=== PATIENT | female | born 1935 | race Caucasian/White ===

== ENCOUNTER 2018-07-25 21:04 | Inpatient (IN) | payer MEDICARE ==
[2018-07-25] MEDS ORDERED: NALOXONE 0.4 MG/ML 1 ML VIAL IV PRN (22:06)
[2018-07-25] MEDS ORDERED: ONDANSETRON 4 MG/2 ML VIAL IVP PRN (22:06)
[2018-07-25] MEDS ORDERED: MAG HYDROX/AL HYDROX/SIMETH 30 ML CUP PO PRN (22:06)
[2018-07-25] MEDS ORDERED: TEMAZEPAM 15 MG CAP PO PRN (22:06)
--- NOTE | 2018-07-25 22:06 | ED ---
General Adult HPI - General Chief complaint: Weakness Stated complaint: lt side weakness Time Seen by Provider: 07/25/18 21:32 Source: patient Mode of arrival: ambulatory - History of Present Illness Initial comments: This patient is an 82-year-old woman who presents as a transfer from [facility]. The transferring physician stated that he felt she may have had a TIA. She had reportedly complained of having left leg weakness. They had arranged transfer to be seen by the neurology service here. When I interview the patient, she states that she was sent to the emergency department there by her visiting nurse who did not like something about her appearance tonight she felt that her color was off. When I interview the patient, she states that she feels well, denying any symptoms. When asked about left leg weakness she states that she does have some is a residual from stroke 2-3 weeks ago. She does not feel that she is having any weakness above this baseline. -: hour(s) Location: left, lower extremity Consistency: now resolved Improves with: none Worsens with: none Associated Symptoms: denies other symptoms Treatments Prior to Arrival: none - Related Data Home Medications Medication Instructions Recorded Confirmed Aspirin [Adult Low Dose Aspirin EC] 81 mg PO DAILY 07/25/18 07/25/18 Atorvastatin [Lipitor] 40 mg PO DAILY 07/25/18 07/25/18 Ibuprofen [Motrin] 800 mg PO DAILY PRN 07/25/18 07/25/18 Losartan Potassium 100 mg PO DAILY 07/25/18 07/25/18 Metoprolol Tartrate [Lopressor] 50 mg PO BID 07/25/18 07/25/18 Omeprazole 20 mg PO DAILY 07/25/18 07/25/18 amLODIPine BESYLATE 5 mg PO HS 07/25/18 07/25/18 diphenhydrAMINE [Benadryl] 50 mg PO HS 07/25/18 07/25/18 metFORMIN HCL [Glucophage] 500 mg PO TID 07/25/18 07/25/18 Allergies Allergy/AdvReac Type Severity Reaction Status Date / Time codeine Allergy Unknown Verified 07/25/18 22:18 Penicillins Allergy Rash/Hives Verified 07/25/18 22:18 Review of Systems ROS Statement: Those systems with pertinent positive or pertinent negative responses have been documented in the HPI. ROS Other: All systems not noted in ROS Statement are negative. Constitutional: Denies: fever, chills Respiratory: Denies: cough, dyspnea Cardiovascular: Denies: chest pain, palpitations, orthopnea, syncope Gastrointestinal: Denies: abdominal pain, vomiting, diarrhea Genitourinary: Denies: dysuria Musculoskeletal: Denies: back pain Skin: Denies: rash Neurological: Reports: as per HPI, weakness. Denies: headache, numbness Past Medical History Past Medical History: Diabetes Mellitus, Hypertension History of Any Multi-Drug Resistant Organisms: None Reported Past Surgical History: Appendectomy Additional Past Surgical History / Comment(s): right shoulder, left knee, right hip replacements. Past Psychological History: No Psychological Hx Reported Smoking Status: Former smoker Past Alcohol Use History: Occasional Past Drug Use History: None Reported General Exam General appearance: alert, in no apparent distress Head exam: Present: atraumatic, normocephalic Eye exam: Present: normal appearance ENT exam: Present: normal oropharynx Respiratory exam: Present: normal lung sounds bilaterally. Absent: respiratory distress, wheezes, rales, rhonchi, stridor Cardiovascular Exam: Present: regular rate, normal rhythm, normal heart sounds. Absent: systolic murmur, diastolic murmur, rubs, gallop GI/Abdominal exam: Present: soft. Absent: distended, tenderness, guarding, rebound, rigid, mass Extremities exam: Present: normal inspection, normal capillary refill. Absent: pedal edema, calf tenderness Back exam: Present: normal inspection. Absent: CVA tenderness (R), CVA tenderness (L) Neurological exam: Present: alert, oriented X3 Expanded Neurological exam: Present: protecting the airway Speech: Present: fluid speech Motor strength exam: RUE: 5, LUE: 4, RLE: 5, LLE: 4 Eye Response: (4) open spontaneously Motor Response: (6) obeys commands Verbal Response: (5) oriented Skin exam: Present: warm, dry, intact, normal color. Absent: rash Course Vital Signs 07/25/18 21:06 Temperature 97.2 F L Pulse Rate 82 Respiratory 18 Rate Blood Pressure 168/62 O2 Sat by Pulse 96 Oximetry Medical Decision Making - Medical Decision Making 's patient is a 82-year-old woman transferred here from [facility] to have neurology consultation for suspected TIA. The patient states she is at her baseline now. Case discussed with admitting physician Dr. Sheridan, and patient will be seen by neurology. Disposition Clinical Impression: TIA (transient ischemic attack), Acute kidney injury (nontraumatic) Disposition: ADMITTED IP TO THIS HOSP Condition: Fair Is patient prescribed a controlled substance at d/c from ED?: No Referrals: Essence Dee MD [Primary Care Provider] - 1-2 days
[2018-07-26 01:29] VITALS: BMI 26.4
[2018-07-26 06:40] LABS: Glucose,Whole Blood 137 mg/dL (75-99)
[2018-07-26] MEDS: SODIUM CHLORIDE 0.9% 1,000 ML IV SCH ×2 (07:12→21:05)
[2018-07-26] MEDS: ACETAMINOPHEN TAB 325 MG TAB PO PRN (08:19)
[2018-07-26] MEDS ORDERED: NITROGLYCERIN SL TABS 0.4 MG TAB SUBLINGUAL STA (09:24)
[2018-07-26] MEDS ORDERED: NITROGLYCERIN SL TABS 0.4 MG TAB SUBLINGUAL PRN (10:17)
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
[2018-07-26 11:16] LABS: Basophils % (A) 0 %; Eosinophils # (A) 0.1 k/uL (0-0.7); Eosinophils % (A) 1 %; HCT 36.3 % (34.0-46.0); HGB 11.9 gm/dL (11.4-16.0); Lymphocytes # (A) 1.2 k/uL (1.0-4.8); Lymphocytes % (A) 25 %; MCH 29.7 pg (25.0-35.0); MCHC 32.6 g/dL (31.0-37.0); Mean Platelet Volume 7.1; Monocytes # (A) 0.2 k/uL (0-1.0); Monocytes % (A) 4 %; Neutrophils # (A) 3.3 k/uL (1.3-7.7); Neutrophils % (A) 68 %; Platelet Count 131 k/uL (150-450); RBC 3.99 m/uL (3.80-5.40); RDW 14.7 % (11.5-15.5); WBC 4.8 k/uL (3.8-10.6)
[2018-07-26 11:41] LABS: Albumin 3.6 g/dL (3.5-5.0); Calcium 9.4 mg/dL (8.4-10.2); Total Bilirubin 0.4 mg/dL (0.2-1.3); Total Protein 6.7 g/dL (6.3-8.2)
[2018-07-26] MEDS: LOSARTAN 50 MG TAB PO SCH (11:50)
[2018-07-26] MEDS: ASPIRIN 81 MG PO SCH (11:50)
[2018-07-26] MEDS: PANTOPRAZOLE 40 MG TABLET PO SCH (11:50)
[2018-07-26] MEDS: METOPROLOL TARTRATE 50 MG TAB PO SCH ×2 (11:51→21:04)
[2018-07-26 11:52] LABS: Glucose,Whole Blood 119 mg/dL (75-99)
[2018-07-26 17:35] LABS: Glucose,Whole Blood 150 mg/dL (75-99)
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
[2018-07-26] MEDS: amLODIPine 5 MG TAB PO SCH (21:04)
[2018-07-26] MEDS: diphenhydrAMINE 50 MG CAP PO SCH (21:05)
[2018-07-26 21:34] LABS: Glucose,Whole Blood 165 mg/dL (75-99)
[2018-07-27 05:45] LABS: Glucose,Whole Blood 131 mg/dL (75-99)
[2018-07-27 06:35] LABS: Basophils % (A) 1 %; Eosinophils # (A) 0.1 k/uL (0-0.7); Eosinophils % (A) 2 %; HCT 37.4 % (34.0-46.0); HGB 12.1 gm/dL (11.4-16.0); Lymphocytes # (A) 1.7 k/uL (1.0-4.8); Lymphocytes % (A) 32 %; MCH 29.2 pg (25.0-35.0); MCHC 32.3 g/dL (31.0-37.0); MCV 90.5 fL (80.0-100.0); Mean Platelet Volume 7.2; Monocytes # (A) 0.3 k/uL (0-1.0); Monocytes % (A) 5 %; Neutrophils # (A) 3.2 k/uL (1.3-7.7); Neutrophils % (A) 59 %; Platelet Count 154 k/uL (150-450); RBC 4.13 m/uL (3.80-5.40); RDW 14.8 % (11.5-15.5); WBC 5.4 k/uL (3.8-10.6)
[2018-07-27] MEDS: PANTOPRAZOLE 40 MG TABLET PO SCH (06:36)
[2018-07-27 06:55] LABS: Albumin 3.7 g/dL (3.5-5.0); Calcium 9.5 mg/dL (8.4-10.2); Potassium 4.5 mmol/L (3.5-5.1); Total Bilirubin 0.4 mg/dL (0.2-1.3); Total Protein 6.8 g/dL (6.3-8.2)
[2018-07-27] MEDS: LOSARTAN 50 MG TAB PO SCH (07:53)
[2018-07-27] MEDS: ATORVASTATIN 40 MG TAB PO SCH (07:54)
[2018-07-27] MEDS: METOPROLOL TARTRATE 50 MG TAB PO SCH ×2 (07:54→20:05)
[2018-07-27] MEDS: ASPIRIN 81 MG PO SCH (07:54)
--- NOTE | 2018-07-27 09:20 | CT ---
EXAMINATION TYPE: CT brain wo con DATE OF EXAM: 07/27/2018 COMPARISON: 07/25/2018 HISTORY: Stroke CT DLP: 1091.[address] of the brain was performed. The ventricles, basal cisterns and sulci overlying the cerebral convexities demonstrate mild enlargem ent. There is no evidence for intracranial hemorrhage or sulcal effacement. There is decreased attenuation about the periventricular white matter and deep white matter of both c erebral hemispheres, compatible with chronic small vessel ischemia. Differential diagnosis does inclu de demyelination. No mass effects are seen.No midline shift. Osseous calvarium is intact. Chronic sinusitis changes. If symptoms persist consider MRI. IMPRESSION: 1. Age related atrophic and chronic small vessel ischemic change without acute intracranial process s een at this time.
--- NOTE | 2018-07-27 10:53 | P.PN ---
Subjective Progress Note Date: 07/27/18 Anisha Antoine, is an 82-year-old woman who presented to [facility] as a transfer from [facility]. Patient was evaluated in the emergency room and admitted to telemetry floor for further evaluation and treatment . Patient has a known history of stroke 2 weeks ago at that time she went to [facility] emergency room and was transferred to [facility]. She had left sided weakness involving the left upper extremity and left lower extremity, patient was discharged back home and was having visiting nurse follow-up. Patient's visiting nurse felt that patient was not looking well, he might have more weakness on the left lower extremity, she told patient to go to emergency room, she went to [facility], and was transferred to [facility] to be evaluated by a neurologist. Patient was seen and examined on 07/26/2018, she is mildly confused she answers questions by yes or no does not give any significant details, her sister is at bedside and she gave most of the history. Objective - Vital Signs Vital signs: Vital Signs Temp 98.7 F 07/27/18 08:00 Pulse 77 07/27/18 08:00 Resp 18 07/27/18 08:00 BP 158/68 07/27/18 08:00 Pulse Ox 96 07/27/18 08:00 Intake & Output 07/26/18 07/27/18 07/27/18 18:59 06:59 18:59 Intake Total 240 200 Balance 240 200 Weight 65 kg Intake: Intake, IV Titration 200 Amount Sodium Chloride 0.9% 1, 200 000 ml @ 20 mls/hr IV . Q24H [facility] Rx#:[id number] Oral 240 Other: Voiding Method Toilet # Voids 2 4 # Bowel Movements 1 2 - Exam In general patient is alert confused in no apparent distress HEENT head normocephalic and atraumatic Neck is supple no JVD no goiter no lymphadenopathy Chest exam reveals a few scattered rhonchi bilaterally no wheezing Cardiac exam reveals regular heart sounds no gallops no murmurs Abdomen is soft nontender no organomegaly with normal bowel sounds Extremity exam reveals no edema no cyanosis or clubbing Neurological examination Mental status patient is confused, but this may be chronic patient is at her baseline per her sister No change in motor and sensory exam - Labs CBC & Chem 7: 07/27/18 06:10 07/27/18 06:10 Labs: Abnormal Lab Results - Last 24 Hours (Table) 07/26/18 07/26/18 07/26/18 Range/Units 10:53 10:53 11:44 Plt Count 131 L (150-450) k/uL Chloride 113 H (98-107) mmol/L Carbon Dioxide (22-30) mmol/L BUN 26 H (7-17) mg/dL Creatinine (0.52-1.04) mg/dL Glucose 129 H (74-99) mg/dL POC Glucose (mg/dL) 119 H (75-99) mg/dL AST 56 H (14-36) U/L 07/26/18 07/26/18 07/27/18 Range/Units 17:14 21:18 05:26 Plt Count (150-450) k/uL Chloride (98-107) mmol/L Carbon Dioxide (22-30) mmol/L BUN (7-17) mg/dL Creatinine (0.52-1.04) mg/dL Glucose (74-99) mg/dL POC Glucose (mg/dL) 150 H 165 H 131 H (75-99) mg/dL AST (14-36) U/L 07/27/18 Range/Units 06:10 Plt Count (150-450) k/uL Chloride 112 H (98-107) mmol/L Carbon Dioxide 21 L (22-30) mmol/L BUN 25 H (7-17) mg/dL Creatinine 1.07 H (0.52-1.04) mg/dL Glucose 139 H (74-99) mg/dL POC Glucose (mg/dL) (75-99) mg/dL AST 40 H (14-36) U/L Assessment and Plan Plan: #1 possible TIA, neurology consult was requested #2 recent stroke 2 weeks ago with left sided weakness #3 underlying history of hypertension #4 underlying history of hyperlipidemia #5 underlying history of diabetes mellitus #6 episode of chest pain through the night, EKG was done and did not reveal any acute changes, troponin levels were ordered. Cardiology consult was requested. #7 mild elevation in BUN and creatinine will hold metformin at this time and monitor kidney function At this time will try to obtain echocardiogram and carotid Doppler results from [facility] Will monitor patient closely on telemetry floor to rule out any episodes of paroxysmal atrial fibrillation Will obtain cardiology consult and neurology consult Discharge planning discussed with family at bedside and they wish that patient goes to rehab at [facility] Consultation for Dr. Jama was initiated
[2018-07-27 12:02] LABS: Glucose,Whole Blood 138 mg/dL (75-99)
[2018-07-27] MEDS: INSULIN ASPART 100 UNIT/ML 1 ML 10 ML VIAL SQ SCH ×3 (12:21→22:29)
[2018-07-27] MEDS: SODIUM CHLORIDE 0.9% 1,000 ML IV SCH (19:58)
[2018-07-27] MEDS: amLODIPine 5 MG TAB PO SCH (20:05)
[2018-07-27 20:48] LABS: Glucose,Whole Blood 170 mg/dL (75-99)
[2018-07-27] MEDS: diphenhydrAMINE 50 MG CAP PO SCH (23:08)
[2018-07-28 05:51] LABS: Glucose,Whole Blood 132 mg/dL (75-99)
--- NOTE | 2018-07-28 06:27 | P.CONS ---
History of Present Illness - Chief Complaint Gait disturbance, left hemiparesthesias - History of Present Illness I had the opportunity to see patient for inpatient rehab consultation with regard to gait disturbance. She was admitted to [facility] July 25 as a transfer from [facility]. History of hospitalization 3 weeks early [facility] for left hemiparesthesias and stroke, discharge after 4 days. Seen in consultation by Dr. Jaince Gonzalez. Head CT demonstrates age-related and small vessel change only. PT reports moderate assistance for bed mobility and minimal assistance for gait 20 feet with roller walker. OT and SLIP TENDER prescribed. Previous functional history as elicited from patient: 82-year-old right-handed white female who is lives in one floor home with . Patient retired. Son does the cooking. Patient independent with laundry, driving occasionally, sitdown shower and gait without device. Dr. Correa is regular doctor. Denies tobacco or alcohol. Review of Systems Review of systems: ENT: Denies sneezes or discharge. Eyes: Denies discharge or photophobia. Cardiac: Denies chest pain or palpitation. Pulmonary: Denies cough or shortness of breath. Breast: Denies discharge or lumps. Gastrointestinal: Denies nausea, emesis, constipation, diarrhea. Genitourinary: Denies discharge or frequency. Musculoskeletal: Denies muscle or bone aches. Neurologic: Chart indicates left-sided weakness although patient seems to be unaware of this. Endocrine: Denies shakes or sweats. Oncology: Denies cancers. Dermatologic: Denies rash, itching, pruritus. ALLERGY/immunology: Denies sneezes, rashes. Past Medical History Past Medical History: Diabetes Mellitus, GERD/Reflux, Hyperlipidemia, Hypertension, Liver Disease Additional Past Medical History / Comment(s): pt. states she was jaundice as a teenager from water History of Any Multi-Drug Resistant Organisms: None Reported Past Surgical History: Appendectomy, Orthopedic Surgery Additional Past Surgical History / Comment(s): right shoulder, left knee, right hip replacements. Past Anesthesia/Blood Transfusion Reactions: No Reported Reaction Past Psychological History: No Psychological Hx Reported Additional Psychological History / Comment(s): pt. lives alone, has a walker at home, pt. reports falling several times in the last few months, says her son stays with her sometimes and assits her with her needs, pt. also has a home care nurse that comes 3x weekly Smoking Status: Former smoker Past Alcohol Use History: Occasional Past Drug Use History: None Reported - Past Family History Father Additional Family Medical History / Comment(s): father from issues associated with alcoholism Mother Family Medical History: CVA/TIA, Diabetes Mellitus Sister(s) Family Medical History: Diabetes Mellitus Medications and Allergies Home Medications Medication Instructions Recorded Confirmed Type Aspirin [Adult Low Dose Aspirin EC] 81 mg PO DAILY 07/25/18 07/25/18 History Atorvastatin [Lipitor] 40 mg PO DAILY 07/25/18 07/25/18 History Ibuprofen [Motrin] 800 mg PO DAILY PRN 07/25/18 07/25/18 History Losartan Potassium 100 mg PO DAILY 07/25/18 07/25/18 History Metoprolol Tartrate [Lopressor] 50 mg PO BID 07/25/18 07/25/18 History Omeprazole 20 mg PO DAILY 07/25/18 07/25/18 History amLODIPine BESYLATE 5 mg PO HS 07/25/18 07/25/18 History diphenhydrAMINE [Benadryl] 50 mg PO HS 07/25/18 07/25/18 History metFORMIN HCL [Glucophage] 500 mg PO TID 07/25/18 07/25/18 History Allergies Allergy/AdvReac Type Severity Reaction Status Date / Time codeine Allergy Unknown Verified 07/25/18 22:18 Penicillins Allergy Rash/Hives Verified 07/25/18 22:18 Physical Exam Vitals: Vital Signs Temp Pulse Resp BP Pulse Ox 07/28/18 04:05 97.9 F 101 H 17 143/95 96 07/27/18 23:47 97.4 F L 91 17 152/75 97 07/27/18 20:00 97.3 F L 72 18 141/65 96 07/27/18 15:58 97.9 F 71 18 155/63 96 07/27/18 11:43 67 18 118/70 96 07/27/18 08:00 98.7 F 77 18 158/68 96 Intake and Output 07/27/18 07/27/18 07/28/18 14:59 22:59 06:59 Intake Total 240 240 240 Output Total 600 Balance 240 -360 240 Intake: Oral 240 240 240 Output: Urine 600 Other: Voiding Method Toilet Toilet # Voids 1 2 # Bowel Movements 1 Weight 65.6 kg Skin: Good color, texture, turgor. General: Medium build and comfortable appearance. Head: Normocephalic, atraumatic. Eyes: Symmetric. Pupils equal round. Ears: Symmetric. Hearing within normal limits. Mouth: Clear. Neck: Supple. Carotid without bruit. Cardiac: Regular rate and rhythm. Lungs: Clear anteriorly and posteriorly. Abdomen: Soft active nontender. Extremities: Normal tone. Neurological: Mental status: Alert, cooperative, pleasant. Cranial nerves: Symmetric facial tone and trapezius. Motor: Active movement all 4 limbs but with apraxia and weakness left arm more than leg. Sensation: Intact throughout. DTRs: Symmetric and equal throughout. Mobility: Sits with assistance. Results CBC & Chem 7: 07/27/18 06:10 07/27/18 06:10 Labs: Abnormal Lab Results - Last 24 Hours (Table) 07/27/18 07/27/18 07/27/18 Range/Units 06:10 11:48 20:47 Chloride 112 H (98-107) mmol/L Carbon Dioxide 21 L (22-30) mmol/L BUN 25 H (7-17) mg/dL Creatinine 1.07 H (0.52-1.04) mg/dL Glucose 139 H (74-99) mg/dL POC Glucose (mg/dL) 138 H 170 H (75-99) mg/dL AST 40 H (14-36) U/L 07/28/18 Range/Units 05:48 Chloride (98-107) mmol/L Carbon Dioxide (22-30) mmol/L BUN (7-17) mg/dL Creatinine (0.52-1.04) mg/dL Glucose (74-99) mg/dL POC Glucose (mg/dL) 132 H (75-99) mg/dL AST (14-36) U/L Assessment and Plan (1) TIA (transient ischemic attack) Current Visit: Yes Status: Acute Code(s): G45.9 - TRANSIENT CEREBRAL ISCHEMIC ATTACK, UNSPECIFIED SNOMED Code(s): 800788090 Plan: Impression: 1. Gait disturbance. 2. TIA would like to be pierces. 3. History of recent stroke and left hemiparesthesias. 4. Acute kidney injury. 5. Hypertension. 6. Dyslipidemia. 7. Diabetes. 8. GERD. Comments and plan: At this time PT ongoing and OT and SLIP TENDER prescribed. Follow therapies with yourself.
[2018-07-28] MEDS: INSULIN ASPART 100 UNIT/ML 1 ML 10 ML VIAL SQ SCH ×4 (06:35→21:06)
[2018-07-28] MEDS: PANTOPRAZOLE 40 MG TABLET PO SCH (06:35)
[2018-07-28] MEDS: ATORVASTATIN 40 MG TAB PO SCH (08:30)
[2018-07-28] MEDS: ASPIRIN 81 MG PO SCH (08:30)
[2018-07-28] MEDS: LOSARTAN 50 MG TAB PO SCH (08:30)
[2018-07-28] MEDS: METOPROLOL TARTRATE 50 MG TAB PO SCH ×2 (08:30→20:58)
[2018-07-28 11:30] LABS: Hemoglobin A1C 7.3 % (4.0-6.0)
[2018-07-28] MEDS: ACETAMINOPHEN TAB 325 MG TAB PO PRN (12:07)
[2018-07-28 12:24] LABS: Glucose,Whole Blood 148 mg/dL (75-99)
[2018-07-28 12:31] LABS: Calcium 9.8 mg/dL (8.4-10.2); Potassium 4.9 mmol/L (3.5-5.1)
--- NOTE | 2018-07-28 13:00 | P.PN ---
Subjective Progress Note Date: 07/28/18 Anisha Antoine, is an 82-year-old woman who presented to [facility] as a transfer from [facility]. Patient was evaluated in the emergency room and admitted to telemetry floor for further evaluation and treatment . Patient has a known history of stroke 2 weeks ago at that time she went to [facility] emergency room and was transferred to [facility]. She had left sided weakness involving the left upper extremity and left lower extremity, patient was discharged back home and was having visiting nurse follow-up. Patient's visiting nurse felt that patient was not looking well, he might have more weakness on the left lower extremity, she told patient to go to emergency room, she went to [facility], and was transferred to [facility] to be evaluated by a neurologist. Patient was seen and examined on 07/26/2018, she is mildly confused she answers questions by yes or no does not give any significant details, her sister is at bedside and she gave most of the history. 07/28/2018 patient still having left-sided weakness. Still trying to obtain the echo and carotid from [facility] when patient had suffered from her stroke. Patient no longer reporting chest pain. Cardiology consult pending. Troponin was negative. Patient denies any shortness of breath. Denies any nausea or vomiting. Denies any bowel movement changes or urinary symptoms. Patient evaluated by physical therapy they're recommending discharge to [facility]. Patient has chosen [facility] Objective - Vital Signs Vital signs: Vital Signs Temp 98.7 F 07/28/18 08:00 Pulse 74 07/28/18 08:00 Resp 18 07/28/18 08:00 BP 134/101 07/28/18 08:00 Pulse Ox 98 07/28/18 08:00 Intake & Output 07/27/18 07/28/18 07/28/18 18:59 06:59 18:59 Intake Total 480 240 Output Total 300 300 Balance 180 -60 Weight 65.6 kg Intake: Oral 480 240 Output: Urine 300 300 Other: Voiding Method Toilet # Voids 2 0 # Bowel Movements 1 - Exam Head normocephalic Neck supple Lungs clear to auscultation bilaterally no wheezing or crackles Heart regular rate and rhythm S1-S2, no rub or gallop Abdomen is soft nontender nondistended positive bowel sounds no hepatosplenomegaly Extremities no edema Neuro alert and orientated to 3 left upper and lower extremity weakness. Answering questions appropriately - Labs CBC & Chem 7: 07/27/18 06:10 07/28/18 11:28 Labs: Abnormal Lab Results - Last 24 Hours (Table) 07/27/18 07/27/18 07/28/18 Range/Units 06:02 20:47 05:48 Chloride (98-107) mmol/L BUN (7-17) mg/dL Glucose (74-99) mg/dL POC Glucose (mg/dL) 170 H 132 H (75-99) mg/dL Hemoglobin A1c 7.3 H (4.0-6.0) % 07/28/18 07/28/18 Range/Units 11:28 12:16 Chloride 110 H (98-107) mmol/L BUN 18 H (7-17) mg/dL Glucose 134 H (74-99) mg/dL POC Glucose (mg/dL) 148 H (75-99) mg/dL Hemoglobin A1c (4.0-6.0) % Assessment and Plan Assessment: #1 possible TIA: Computed tomography scan of brain showing no acute changes. Trying to obtain echo and carotid Doppler from [facility]. Patient still having left-sided weakness. Patient evaluated by neurology. No arrhythmia noted on telemetry #2 recent stroke 2 weeks ago with left sided weakness #3 underlying history of hypertension #4 underlying history of hyperlipidemia #5 underlying history of diabetes mellitus, A1c 7.3 #6 episode of chest pain through the night, EKG was done and did not reveal any acute changes, troponin negative. Cardiology consult was requested. #7 mild elevation in BUN and creatinine will hold metformin at this time and monitor kidney function. Kidney functions improving. Creatinine down to 1.01 Anticipate discharge to [facility] possibly tomorrow. Awaiting cardiology evaluation. Awaiting echo and carotid results. I performed an examination of the patient and discussed their management with the physician Manager Harbor. I have reviewed the Physician Manager Harbor's notes and agree with the documented findings and plan of care
--- NOTE | 2018-07-28 15:00 | P.CRDCN ---
History of Present Illness Consult date: 07/28/18 Requesting physician: Emiliana Sheridan Chief complaint: Chest fluttering History of present illness: Cardiology consultation is dictated today for the date of the 07/27/2018.This is an 82-year-old female who presented to [facility] as a transfer from [facility]. She was evaluated in the emergency room and sent to the cardiac unit for further evaluations. Patient has a known history of stroke approximately 2 weeks ago at [facility], history of diabetes, hypertension, hyperlipidemia, GERD, liver disease. She presented to the hospital on this occasion with symptoms of weakness in her left lower extremity and needed evaluation further for possible TIAs. Cardiology consultation was initially requested on this patient because of 1 brief episode of chest pain. Patient described her pain as a sharp pain that worsens with deep breathing. Troponin was negative. White blood cell count 4.8, hemoglobin 11.9, platelet count 131. Sodium 143, potassium 5.0, chloride 113, BUN 26, creatinine 0.9. TSH 1.22. CT of the brain revealed age-related atrophic and chronic small vessel ischemic change without any acute intracranial process. Blood pressure 129/60 with a heart rate in the 60s, 97% on room air. Past Medical History Past Medical History: Diabetes Mellitus, GERD/Reflux, Hyperlipidemia, Hypertension, Liver Disease Additional Past Medical History / Comment(s): pt. states she was jaundice as a teenager from water History of Any Multi-Drug Resistant Organisms: None Reported Past Surgical History: Appendectomy, Orthopedic Surgery Additional Past Surgical History / Comment(s): right shoulder, left knee, right hip replacements. Past Anesthesia/Blood Transfusion Reactions: No Reported Reaction Past Psychological History: No Psychological Hx Reported Additional Psychological History / Comment(s): pt. lives alone, has a walker at home, pt. reports falling several times in the last few months, says her son stays with her sometimes and assits her with her needs, pt. also has a home care nurse that comes 3x weekly Smoking Status: Former smoker Past Alcohol Use History: Occasional Past Drug Use History: None Reported - Past Family History Father Additional Family Medical History / Comment(s): father from issues associated with alcoholism Mother Family Medical History: CVA/TIA, Diabetes Mellitus Sister(s) Family Medical History: Diabetes Mellitus Medications and Allergies Home Medications Medication Instructions Recorded Confirmed Type Aspirin [Adult Low Dose Aspirin EC] 81 mg PO DAILY 07/25/18 07/25/18 History Atorvastatin [Lipitor] 40 mg PO DAILY 07/25/18 07/25/18 History Ibuprofen [Motrin] 800 mg PO DAILY PRN 07/25/18 07/25/18 History Losartan Potassium 100 mg PO DAILY 07/25/18 07/25/18 History Metoprolol Tartrate [Lopressor] 50 mg PO BID 07/25/18 07/25/18 History Omeprazole 20 mg PO DAILY 07/25/18 07/25/18 History amLODIPine BESYLATE 5 mg PO HS 07/25/18 07/25/18 History diphenhydrAMINE [Benadryl] 50 mg PO HS 07/25/18 07/25/18 History metFORMIN HCL [Glucophage] 500 mg PO TID 07/25/18 07/25/18 History Allergies Allergy/AdvReac Type Severity Reaction Status Date / Time codeine Allergy Unknown Verified 07/25/18 22:18 Penicillins Allergy Rash/Hives Verified 07/25/18 22:18 Physical Exam Vitals: Vital Signs Temp Pulse Resp BP Pulse Ox 07/28/18 12:00 67 18 129/64 97 07/28/18 08:00 98.7 F 74 18 134/101 98 07/28/18 04:05 97.9 F 101 H 17 143/95 96 07/27/18 23:47 97.4 F L 91 17 152/75 97 07/27/18 20:00 97.3 F L 72 18 141/65 96 07/27/18 15:58 97.9 F 71 18 155/63 96 Intake and Output 07/27/18 07/28/18 07/28/18 22:59 06:59 14:59 Intake Total 240 240 240 Output Total 600 Balance -360 240 240 Intake: Oral 240 240 240 Output: Urine 600 Other: Voiding Method Toilet Toilet # Voids 1 2 0 # Bowel Movements 1 Weight 65.6 kg PHYSICAL EXAMINATION: GENERAL: HEENT: Head is atraumatic, normocephalic. Pupils equal, round. Sclera anicteric. Conjunctiva are clear. Mucous membranes of the mouth are moist. Neck is supple. There is no elevated jugular venous pressure. No carotid bruit is heard. HEART EXAMINATION: Heart S1, S2 normal. No murmur or gallop heard. CHEST EXAMINATION: Lungs are clear to auscultation and precussion. No chest wall tenderness is noted on palpation or with deep breathing. ABDOMEN: Soft, nontender. Bowel sounds are heard. No organomegaly noted. EXTREMITIES: 2+ peripheral pulses with no evidence of peripheral edema and no calf tenderness noted. NEUROLOGIC patient is awake, alert and oriented X3 Left-sided weakness noted. . Results 07/27/18 06:10 07/28/18 11:28 Comprehensive Metabolic Panel 07/28/18 Range/Units 11:28 Sodium 143 (137-145) mmol/L Potassium 4.9 (3.5-5.1) mmol/L Chloride 110 H (98-107) mmol/L Carbon Dioxide 24 (22-30) mmol/L BUN 18 H (7-17) mg/dL Creatinine 1.01 (0.52-1.04) mg/dL Glucose 134 H (74-99) mg/dL Calcium 9.8 (8.4-10.2) mg/dL Current Medications Generic Name Dose Route Start Last Admin Trade Name Freq PRN Reason Stop Dose Admin Acetaminophen 650 mg 07/25/18 22:06 07/28/18 12:07 Tylenol Tab PO 650 mg Q6HR PRN Administration Mild Pain or Fever > 100.5 Al Hydroxide/Mg Hydroxide 15 ml 07/25/18 22:06 Maalox PO Q6HR PRN Indigestion Amlodipine Besylate 5 mg 07/26/18 21:00 07/27/18 20:05 Norvasc PO 5 mg HS SUJATA Administration Aspirin 81 mg 07/26/18 10:45 07/28/18 08:30 Aspirin PO 81 mg DAILY SUJATA Administration Atorvastatin Calcium 40 mg 07/27/18 09:00 07/28/18 08:30 Lipitor PO 40 mg DAILY SUJATA Administration Diphenhydramine HCl 50 mg 07/26/18 21:00 07/27/18 23:08 Benadryl PO 50 mg HS SUJATA Administration Sodium Chloride 1,000 mls @ 20 mls/hr 07/25/18 22:15 07/27/18 19:58 Saline 0.9% IV Not Given .Q24H SUJATA Insulin Aspart 0 unit 07/27/18 12:30 07/28/18 12:51 Novolog SQ 1 unit ACHS SUJATA Administration Protocol Losartan Potassium 100 mg 12/01/18 10:45 07/28/18 08:30 Cozaar PO 100 mg DAILY SUJATA Administration Metoprolol Tartrate 50 mg 07/26/18 10:45 07/28/18 08:30 Lopressor PO 50 mg BID SUJATA Administration Naloxone HCl 0.2 mg 07/25/18 22:06 Narcan IV Q2M PRN Opioid Reversal Nitroglycerin 0.4 mg 07/26/18 10:17 Nitrostat SUBLINGUAL Q5M PRN Chest Pain Ondansetron HCl 4 mg 07/25/18 22:06 Zofran IVP Q8HR PRN Nausea And Vomiting Pantoprazole Sodium 40 mg 07/26/18 10:45 07/28/18 06:35 Protonix PO 40 mg [id number] SUJATA Administration Temazepam 15 mg 07/25/18 22:06 Restoril PO HS PRN Insomnia Intake and Output 07/27/18 07/28/18 07/28/18 22:59 06:59 14:59 Intake Total 240 240 240 Output Total 600 Balance -360 240 240 Intake: Oral 240 240 240 Output: Urine 600 Other: Voiding Method Toilet Toilet # Voids 1 2 0 # Bowel Movements 1 Weight 65.6 kg 07/27/18 06:10 07/28/18 11:28 EKG Interpretations (text) EKG shows normal sinus rhythm with no acute changes. Assessment and Plan Plan: Assessment and plan: #1 possible TIA: Computed tomography scan of brain showing no acute changes. #2 recent stroke 2 weeks ago with left sided weakness #3 underlying history of hypertension #4 underlying history of hyperlipidemia #5 underlying history of diabetes mellitus, A1c 7.3 #6 episode of chest pain through the night, EKG was done and did not reveal any acute changes, troponin negative. From cardiology's perspective, we'll recommend to continue this patient on her current medications. No Evidence to suggest acute coronary syndrome.. DNP note has been reviewed, I agree with a documented findings and plan of care. Patient was seen and examined.
--- NOTE | 2018-07-28 15:02 | P.PN ---
Subjective Progress Note Date: 07/28/18 This is an 82-year-old female who presented to [facility] as a transfer from [facility]. She was evaluated in the emergency room and sent to the cardiac unit for further evaluations. Patient has a known history of stroke approximately [address] [facility], history of diabetes, hypertension, hyperlipidemia, GERD, liver disease. She presented to the hospital on this occasion with symptoms of weakness in her left lower extremity and needed evaluation further for possible TIAs. Cardiology consultation was initially requested on this patient because of 1 brief episode of chest pain. Patient described her pain as a sharp pain that worsens with deep breathing. Troponin was negative. White blood cell count 4.8, hemoglobin 11.9, platelet count 131. Sodium 143, potassium 5.0, chloride 113, BUN 26, creatinine 0.9. TSH 1.22. CT of the brain revealed age-related atrophic and chronic small vessel ischemic change without any acute intracranial process. Blood pressure 129/60 with a heart rate in the 60s, 97% on room air. 07/28/2018 seen and examined this morning, overall doing well. Continues to have some left-sided weakness. Arrangements are being made for [facility]. Hemodynamically she is stable. No further episodes of chest discomfort. Objective - Vital Signs Vital signs: Vital Signs Temp 98.7 F 07/28/18 08:00 Pulse 67 07/28/18 12:00 Resp 18 07/28/18 12:00 BP 129/64 07/28/18 12:00 Pulse Ox 97 07/28/18 12:00 Intake & Output 07/27/18 07/28/18 07/28/18 18:59 06:59 18:59 Intake Total 480 240 240 Output Total 300 300 Balance 180 -60 240 Weight 65.6 kg Intake: Oral 480 240 240 Output: Urine 300 300 Other: Voiding Method Toilet # Voids 2 0 # Bowel Movements 1 - Exam PHYSICAL EXAMINATION: HEENT: Head is atraumatic, normocephalic. Pupils equal, round. Sclera anicteric. Conjunctiva are clear. Mucous membranes of the mouth are moist. Neck is supple. There is no elevated jugular venous pressure. No carotid bruit is heard. HEART EXAMINATION: Heart S1, S2 normal. No murmur or gallop heard. CHEST EXAMINATION: Lungs are clear to auscultation and precussion. No chest wall tenderness is noted on palpation or with deep breathing. ABDOMEN: Soft, nontender. Bowel sounds are heard. No organomegaly noted. EXTREMITIES: 2+ peripheral pulses with no evidence of peripheral edema and no calf tenderness noted. NEUROLOGIC patient is awake, alert and oriented X3 Left-sided weakness noted. . - Labs CBC & Chem 7: 07/27/18 06:10 07/28/18 11:28 Labs: Abnormal Lab Results - Last 24 Hours (Table) 07/27/18 07/27/18 07/28/18 Range/Units 06:02 20:47 05:48 Chloride (98-107) mmol/L BUN (7-17) mg/dL Glucose (74-99) mg/dL POC Glucose (mg/dL) 170 H 132 H (75-99) mg/dL Hemoglobin A1c 7.3 H (4.0-6.0) % 07/28/18 07/28/18 Range/Units 11:28 12:16 Chloride 110 H (98-107) mmol/L BUN 18 H (7-17) mg/dL Glucose 134 H (74-99) mg/dL POC Glucose (mg/dL) 148 H (75-99) mg/dL Hemoglobin A1c (4.0-6.0) % Assessment and Plan Plan: Assessment and plan: #1 possible TIA: Computed tomography scan of brain showing no acute changes. #2 recent stroke 2 weeks ago with left sided weakness #3 underlying history of hypertension #4 underlying history of hyperlipidemia #5 underlying history of diabetes mellitus, A1c 7.3 #6 episode of chest pain through the night, EKG was done and did not reveal any acute changes, troponin negative. From cardiology's perspective, we'll recommend to continue this patient on her current medications. No Evidence to suggest acute coronary syndrome.. Discharged to [facility] today. DNP note has been reviewed, I agree with a documented findings and plan of care. Patient was seen and examined.
[2018-07-28 16:25] LABS: Glucose,Whole Blood 163 mg/dL (75-99)
[2018-07-28] MEDS: amLODIPine 5 MG TAB PO SCH (20:58)
[2018-07-28] MEDS: diphenhydrAMINE 50 MG CAP PO SCH (20:58)
[2018-07-28] MEDS: SODIUM CHLORIDE 0.9% 1,000 ML IV SCH (20:59)
[2018-07-28 21:05] LABS: Glucose,Whole Blood 197 mg/dL (75-99)
--- NOTE | 2018-07-28 21:13 | P.PN ---
Subjective Progress Note Date: 07/28/18 The patient is an 82-year-old woman admitted to the hospital with history of stroke and left-sided weakness. The patient reports that her left leg is working much better now. She is able to move her leg up against gravity. Her left arm is the same as it was from her initial stroke. Feels like she is back to her baseline. He denies any new weakness or vision changes or speech disturbance. The patient had been noncompliant with medications. Was advised that she should stay on her aspirin. Her does of carotid ultrasound and echocardiogram which were recently done at [facility] in [place] have still not been received. Objective - Vital Signs Vital signs: Vital Signs Temp 98.7 F 07/28/18 08:00 Pulse 69 07/28/18 16:00 Resp 19 07/28/18 16:00 BP 123/57 07/28/18 16:00 Pulse Ox 96 07/28/18 16:00 Intake & Output 07/28/18 07/28/18 07/29/18 06:59 18:59 06:59 Intake Total 240 480 Output Total 300 Balance -60 480 Weight 65.6 kg Intake: Oral 240 480 Output: Urine 300 Other: Voiding Method Toilet # Voids 2 600 # Bowel Movements 1 - Constitutional General appearance: Present: average body habitus - Respiratory Respiratory: bilateral: CTA - Cardiovascular Rhythm: regular - Neurologic Neurologic: Present: CNII-XII intact - Musculoskeletal Musculoskeletal: Present: left sided weakness - Psychiatric Psychiatric: Present: A&O x's 3 - Labs CBC & Chem 7: 07/27/18 06:10 07/28/18 11:28 Labs: Abnormal Lab Results - Last 24 Hours (Table) 07/27/18 07/28/18 07/28/18 Range/Units 06:02 05:48 11:28 Chloride 110 H (98-107) mmol/L BUN 18 H (7-17) mg/dL Glucose 134 H (74-99) mg/dL POC Glucose (mg/dL) 132 H (75-99) mg/dL Hemoglobin A1c 7.3 H (4.0-6.0) % 07/28/18 07/28/18 07/28/18 Range/Units 12:16 16:16 21:02 Chloride (98-107) mmol/L BUN (7-17) mg/dL Glucose (74-99) mg/dL POC Glucose (mg/dL) 148 H 163 H 197 H (75-99) mg/dL Hemoglobin A1c (4.0-6.0) % Assessment and Plan (1) History of stroke with current residual effects Current Visit: Yes Status: Acute SNOMED Code(s): 361129118 (2) TIA (transient ischemic attack) Current Visit: Yes Status: Acute SNOMED Code(s): 034767320 Plan: The patient is an 82-year-old woman with noncompliance to medications who presents with having had a stroke 2 weeks ago with residual left-sided weakness. The patient is doing better in terms of her left leg weakness. The patient denies any new complaint. The patient has noticed the improvement in her left leg strength. The patient has had a CT of the brain which did not show any acute findings. Records from [facility] in [place] have not been received yet. The patient should have some short-term rehab area and she was advised to adhere to aspirin therapy.
[2018-07-29] MEDS: INSULIN ASPART 100 UNIT/ML 1 ML 10 ML VIAL SQ SCH ×4 (05:59→20:54)
[2018-07-29 06:00] LABS: Glucose,Whole Blood 130 mg/dL (75-99)
[2018-07-29] MEDS: PANTOPRAZOLE 40 MG TABLET PO SCH (06:12)
[2018-07-29 06:42] LABS: Albumin 3.3 g/dL (3.5-5.0); Calcium 9.2 mg/dL (8.4-10.2); Potassium 4.6 mmol/L (3.5-5.1); Total Bilirubin 0.4 mg/dL (0.2-1.3); Total Protein 6.4 g/dL (6.3-8.2)
[2018-07-29] MEDS: ASPIRIN 81 MG PO SCH (07:52)
[2018-07-29] MEDS: METOPROLOL TARTRATE 50 MG TAB PO SCH ×2 (07:52→20:54)
[2018-07-29] MEDS: LOSARTAN 50 MG TAB PO SCH (07:52)
[2018-07-29] MEDS: ATORVASTATIN 40 MG TAB PO SCH (07:52)
[2018-07-29 11:28] LABS: Glucose,Whole Blood 120 mg/dL (75-99)
--- NOTE | 2018-07-29 14:00 | P.DS ---
Providers Date of admission: 07/26/18 15:29 Expected date of discharge: 07/29/18 Attending physician: Emiliana Sheridan Consults: 07/25/18 22:07 Consult Physician Routine Consulting Provider: Raffaele Martin Consult Reason/Comments: Recent stroke. Possible TIA Do you want consulting provider notified?: Yes 07/26/18 10:12 Consult Physician Routine Consulting Provider: Ashley Sandoval Consult Reason/Comments: chest pain Do you want consulting provider notified?: Yes 07/27/18 10:50 Consult Physician Routine Consulting Provider: Delvin Cat Consult Reason/Comments: stroke Do you want consulting provider notified?: Yes Primary care physician: Essence Dee [facility] Course: Discharge diagnosis #1 possible TIA: Computed tomography scan of brain showing no acute changes. Patient evaluated by neurology. No arrhythmia noted on telemetry. Echo from [facility] shows an EF of 55-60% CTA of the head and neck no specific arterial abnormality patient is remain on aspirin and statin. 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 Repeat blood pressure per nursing staff was systolic blood pressure in the 140s. Continue with current medications #4 underlying history of hyperlipidemia #5 underlying history of diabetes mellitus, A1c 7.3. Kidney functions improved restart metformin #6 episode of chest pain: EKG was done and did not reveal any acute changes, troponin negative. Patient evaluated by cardiology. No evidence of acute coronary syndrome. They have cleared patient for discharge #7 acute kidney injury: With mild elevation in BUN and creatinine likely related to dehydration. Has shown improvement. We'll check BMP in 3 days #8 hyperchloremia possibly reactive fluids. Hep-Lock fluids. Recheck BMP in 3 days for level CXIV Hospital course Anisha Antoine, is an 82-year-old woman who presented to [facility] as a transfer from [facility]. Patient was evaluated in the emergency room and admitted to telemetry floor for further evaluation and treatment . Patient has a known history of stroke 2 weeks ago at that time she went to [facility] emergency room and was transferred to [facility]. She had left sided weakness involving the left upper extremity and left lower extremity, patient was discharged back home and was having visiting nurse follow-up. Patient's visiting nurse felt that patient was not looking well, he might have more weakness on the left lower extremity, she told patient to go to emergency room, she went to [facility], and was transferred to [facility] to be evaluated by a neurologist. Patient was seen and examined on 07/26/2018, she is mildly confused she answers questions by yes or no does not give any significant details, her sister is at bedside and she gave most of the history. 07/28/2018 patient still having left-sided weakness. Still trying to obtain the echo and carotid from [facility] when patient had suffered from her stroke. Patient no longer reporting chest pain. Cardiology consult pending. Troponin was negative. Patient denies any shortness of breath. Denies any nausea or vomiting. Denies any bowel movement changes or urinary symptoms. Patient evaluated by physical therapy they're recommending discharge to [facility]. Patient has chosen [facility] 07/29/2018 patient still having left-sided weakness with slight improvement in the left arm and leg. She was able to work with physical therapy. Echo from [facility] had shown a normal EF of 55-60%. CTA of the head and neck showed no arterial abnormality. Patient seen by neurology and cardiology during this hospitalization. They've cleared her for discharge. Patient did have an elevated blood pressure this morning of 175/70 that didn't improve after medications were given. Pressure was down to 140s. Patient is medically stable for discharge. Awaiting insurance authorization for possible inpatient rehab at [facility]. Check BMP in 3 days I performed an examination of the patient and discussed their management with the physician Informatics Analyst. I have reviewed the Physician Informatics Analyst's notes and agree with the documented findings and plan of care Patient Condition at Discharge: Stable Plan - Discharge Summary Discharge Rx Participant: No New Discharge Prescriptions: Continue diphenhydrAMINE [Benadryl] 50 mg PO HS metFORMIN HCL [Glucophage] 500 mg PO TID Omeprazole 20 mg PO DAILY Atorvastatin [Lipitor] 40 mg PO DAILY Aspirin [Adult Low Dose Aspirin EC] 81 mg PO DAILY amLODIPine BESYLATE 5 mg PO HS Metoprolol Tartrate [Lopressor] 50 mg PO BID Losartan Potassium 100 mg PO DAILY Discontinued Ibuprofen [Motrin] 800 mg PO DAILY PRN PRN Reason: Pain Discharge Medication List Aspirin [Adult Low Dose Aspirin EC] 81 mg PO DAILY 07/25/18 [History] Atorvastatin [Lipitor] 40 mg PO DAILY 07/25/18 [History] Losartan Potassium 100 mg PO DAILY 07/25/18 [History] Metoprolol Tartrate [Lopressor] 50 mg PO BID 07/25/18 [History] Omeprazole 20 mg PO DAILY 07/25/18 [History] amLODIPine BESYLATE 5 mg PO HS 07/25/18 [History] diphenhydrAMINE [Benadryl] 50 mg PO HS 07/25/18 [History] metFORMIN HCL [Glucophage] 500 mg PO TID 07/25/18 [History] Follow up Appointment(s)/Referral(s): Essence Dee MD [Primary Care Provider] - 1 Week Ambulatory/Diagnostic Orders: Basic Metabolic Panel [LAB.AMB] Time Frame: 3 Days, Location: None Selected Activity/Diet/Wound Care/Special Instructions: Awaiting insurance authorization for inpatient rehab at [facility] vs [facility] before patient is discharged Dr. Sheridan to follow if patient goes to [facility] Diet: cardiac, diabetic Activity: as tolerated Discharge Disposition: TRANSFER TO SNF/ECF
[2018-07-29 16:54] LABS: Glucose,Whole Blood 169 mg/dL (75-99)
[2018-07-29 20:52] LABS: Glucose,Whole Blood 145 mg/dL (75-99)
[2018-07-29] MEDS: amLODIPine 5 MG TAB PO SCH (20:54)
[2018-07-29] MEDS: diphenhydrAMINE 50 MG CAP PO SCH (20:54)
[2018-07-30 06:06] LABS: Glucose,Whole Blood 137 mg/dL (75-99)
[2018-07-30] MEDS: PANTOPRAZOLE 40 MG TABLET PO SCH (06:30)
[2018-07-30] MEDS: INSULIN ASPART 100 UNIT/ML 1 ML 10 ML VIAL SQ SCH ×2 (06:30→11:43)
[2018-07-30 06:51] LABS: Albumin 3.2 g/dL (3.5-5.0); Calcium 9.4 mg/dL (8.4-10.2); Potassium 4.6 mmol/L (3.5-5.1); Total Bilirubin 0.3 mg/dL (0.2-1.3); Total Protein 6.2 g/dL (6.3-8.2)
[2018-07-30 08:19] VITALS: TEMP 98.1
[2018-07-30] MEDS: METOPROLOL TARTRATE 50 MG TAB PO SCH (08:20)
[2018-07-30] MEDS: ATORVASTATIN 40 MG TAB PO SCH (08:20)
[2018-07-30] MEDS: ASPIRIN 81 MG PO SCH (08:20)
[2018-07-30] MEDS: LOSARTAN 50 MG TAB PO SCH (08:20)
[2018-07-30 11:42] LABS: Glucose,Whole Blood 208 mg/dL (75-99)
[2018-07-30 12:39] VITALS: BP 163/77; PULSE 73; RESP 16
== END 2018-07-30 14:06 | DRG 69 ==
LOC: EC 21:04 → 3SCARD 22:06 → OBSVTOIN 07-26 15:29
PROVIDERS: ADMIT Internal Medicine; ATTEND Internal Medicine
DX: G45.9 Transient cerebral ischemic attack, unspecified (principal); N17.9 Acute kidney failure, unspecified; I69.354 Hemiplegia and hemiparesis following cerebral infarction affecting left non-dominant side; I10 Essential (primary) hypertension; E11.9 Type 2 diabetes mellitus without complications; Z96.611 Presence of right artificial shoulder joint; Z96.652 Presence of left artificial knee joint; Z96.641 Presence of right artificial hip joint; K21.9 Gastro-esophageal reflux disease without esophagitis; E87.8 Other disorders of electrolyte and fluid balance, not elsewhere classified; E78.5 Hyperlipidemia, unspecified; E86.0 Dehydration; K76.9 Liver disease, unspecified; R29.702 NIHSS score 2; R29.6 Repeated falls; R07.89 Other chest pain; Z90.49 Acquired absence of other specified parts of digestive tract; Z87.891 Personal history of nicotine dependence; Z81.1 Family history of alcohol abuse and dependence; Z83.3 Family history of diabetes mellitus; Z82.3 Family history of stroke; Z79.84 Long term (current) use of oral hypoglycemic drugs; Z79.82 Long term (current) use of aspirin; Z79.899 Other long term (current) drug therapy; Z88.5 Allergy status to narcotic agent; Z88.0 Allergy status to penicillin; Z91.128 Patient's intentional underdosing of medication regimen for other reason
CPT/HCPCS: 70450; 80048; 80053; 83036; 84443; 84484; 85025; 99284

== ENCOUNTER 2018-10-02 09:09 | Observation (INO) | payer MEDICARE ==
[2018-10-02] MEDS ORDERED: IPRATROPIUM-ALBUTEROL 3 ML NEB INHALATION STA (09:21)
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
--- NOTE | 2018-10-02 10:14 | XR ---
EXAMINATION TYPE: XR chest 2V DATE OF EXAM: 10/02/2018 COMPARISON: 07/25/2018 HISTORY: Shortness of breath TECHNIQUE: Frontal and lateral views of the chest are obtained. FINDINGS: Scattered senescent parenchymal changes noted. Hyperinflation compatible with COPD. No evidence for infiltrate. No evidence for atelectasis. Heart size is stable. Mediastinal structures are stable and grossly unremarkable. No evidence for hilar prominence. Degenerative changes dorsal spine. IMPRESSION: 1. No evidence for acute pulmonary disease.
[2018-10-02 10:25] LABS: Basophils % (A) 1 %; Eosinophils # (A) 0.1 k/uL (0-0.7); Eosinophils % (A) 1 %; HCT 38.6 % (34.0-46.0); HGB 12.7 gm/dL (11.4-16.0); Lymphocytes # (A) 1.5 k/uL (1.0-4.8); Lymphocytes % (A) 25 %; MCH 30.9 pg (25.0-35.0); MCHC 32.9 g/dL (31.0-37.0); MCV 93.7 fL (80.0-100.0); Mean Platelet Volume 7.4; Monocytes # (A) 0.3 k/uL (0-1.0); Monocytes % (A) 5 %; Neutrophils # (A) 3.9 k/uL (1.3-7.7); Neutrophils % (A) 67 %; Platelet Count 197 k/uL (150-450); RBC 4.12 m/uL (3.80-5.40); RDW 15.2 % (11.5-15.5); WBC 5.8 k/uL (3.8-10.6)
[2018-10-02 10:35] LABS: Albumin 4.2 g/dL (3.5-5.0); Calcium 9.8 mg/dL (8.4-10.2); Magnesium 1.6 mg/dL (1.6-2.3); Potassium 4.3 mmol/L (3.5-5.1); Total Bilirubin 0.8 mg/dL (0.2-1.3); Total Protein 7.4 g/dL (6.3-8.2)
[2018-10-02 10:41] LABS: Prothrombin Time 10.9 sec (9.0-12.0)
[2018-10-02 10:47] LABS: Creatine Kinase 46 U/L (30-135); Partial Thromboplastin Time 20.8 sec (22.0-30.0)
[2018-10-02 11:01] LABS: Creatine Kinase MB 0.3 ng/mL (0.0-2.4); Troponin I <0.012 ng/mL (0.000-0.034)
[2018-10-02] MEDS ORDERED: HEPARIN SODIUM,PORCINE 5,000 UNIT/ML 1 ML VIAL IV PRN (11:50)
[2018-10-02] MEDS ORDERED: NITROGLYCERIN SL TABS 0.4 MG TAB SUBLINGUAL PRN (11:50)
[2018-10-02] MEDS ORDERED: HEPARIN SODIUM,PORCINE 5,000 UNIT/ML 1 ML VIAL IV ONE (11:50)
[2018-10-02] MEDS ORDERED: HEPARIN SOD,PORK IN 0.45% NACL 25,000 UNIT in 0.45% NACL 1 250ML.BAG IV SCH (12:00)
[2018-10-02] MEDS ORDERED: ALPRAZolam 0.25 MG TAB PO PRN (14:33)
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
--- NOTE | 2018-10-02 14:55 | P.HPIM ---
History of Present Illness H&P Date: 10/02/18 Chief Complaint: chest pain This is a 83-year-old female, patient of Dr. Correa. She has a known past medical history of diabetes mellitus, hypertension, hyperlipidemia, TIA and anxiety. She was a former smoker. She presents to the emergency room with complaints of chest pain. She reports a heavy pressure in the midsternal area of her chest. She reports that she feels like something is sitting on her chest. Patient admits to having some shortness of breath and had a few episodes of vomiting with her chest discomfort. She took an aspirin with no relief. Her symptoms started yesterday. Patient denies any fever, chills, sweats. Denies any bowel movement changes or urinary symptoms. First troponin is negative. EKG showing a normal sinus rhythm, septal infarct age undetermined. Chest x-rays negative. She started on IV heparin and cardiology has been consulted. She is scheduled for stress test tomorrow morning. Patient does admit to a mild cough again started yesterday. Nonproductive. She denies any sinus congestion. Denies any headache. Denies feeling sick. 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 History of Any Multi-Drug Resistant Organisms: None Reported Past Surgical History: Appendectomy, Hysterectomy, Joint Replacement, Orthopedic Surgery Additional Past Surgical History / Comment(s): R shoulder open surgery, R total knee replacement, R total hip replacement, bilateral wrist carpal tunnel releases, EGD. Past Anesthesia/Blood Transfusion Reactions: No Reported Reaction Smoking Status: Former smoker - Past Family History Father Additional Family Medical History / Comment(s): father from issues associated with alcoholism Mother Family Medical History: CVA/TIA, Diabetes Mellitus Sister(s) Family Medical History: Diabetes Mellitus Medications and Allergies Home Medications Medication Instructions Recorded Confirmed Type Aspirin [Adult Low Dose Aspirin EC] 81 mg PO DAILY 07/25/18 10/02/18 History Atorvastatin [Lipitor] 40 mg PO DAILY 07/25/18 10/02/18 History Losartan Potassium 100 mg PO DAILY 07/25/18 10/02/18 History Metoprolol Tartrate [Lopressor] 50 mg PO BID 07/25/18 10/02/18 History Omeprazole 20 mg PO DAILY 07/25/18 10/02/18 History diphenhydrAMINE [Benadryl] 50 mg PO HS 07/25/18 10/02/18 History metFORMIN HCL [Glucophage] 500 mg PO TID 07/25/18 10/02/18 History ALPRAZolam [Xanax] 0.25 mg PO HS PRN 10/02/18 10/02/18 History Ibuprofen [Motrin] 800 mg PO Q6HR PRN 10/02/18 10/02/18 History Pioglitazone [Actos] 15 mg PO DAILY 10/02/18 10/02/18 History amLODIPine [Norvasc] 10 mg PO HS 10/02/18 10/02/18 History Allergies Allergy/AdvReac Type Severity Reaction Status Date / Time codeine Allergy Unknown Verified 10/02/18 09:42 Penicillins Allergy Rash/Hives Verified 10/02/18 09:42 Physical Exam Vitals: Vital Signs Temp Pulse Pulse Resp BP BP Pulse Ox 10/02/18 13:00 97.8 F 74 18 145/65 95 10/02/18 12:45 80 18 151/76 97 10/02/18 10:01 20 10/02/18 09:59 83 10/02/18 09:50 80 10/02/18 09:12 98.7 F 76 18 167/76 97 Intake and Output 10/01/18 10/02/18 10/02/18 22:59 06:59 14:59 Other: Weight 66.224 kg Head normocephalic Neck supple Lungs clear to auscultation bilaterally no wheezing or crackles Heart regular rate and rhythm S1-S2, no rub or gallop Abdomen is soft nontender nondistended positive bowel sounds no hepatosplenomegaly Extremities no edema Neuro alert and orientated to 3 Results CBC & Chem 7: 10/02/18 09:15 10/02/18 09:15 Labs: Abnormal Lab Results - Last 24 Hours (Table) 10/02/18 10/02/18 Range/Units 09:15 09:15 APTT 20.8 L (22.0-30.0) sec Glucose 110 H (74-99) mg/dL Thrombosis Risk Factor Assmnt - Choose All That Apply Any of the Below Risk Factors Present?: Yes Each Factor Represents 1 point: Obesity (BMI >25) Other Risk Factors: Yes Each Risk Factor Represents 3 Points: Age 75 years or older Other congenital or acquired thrombophilia - If yes, enter type in comment: No Thrombosis Risk Factor Assessment Total Risk Factor Score: 4 Thrombosis Risk Factor Assessment Level: Moderate Risk Assessment and Plan Assessment: 1. Chest pain: First troponin is negative. Continue monitoring cardiac enzymes. EKG normal sinus rhythm with septal infarct age undetermined. Cardiology on consult they've ordered a stress test for tomorrow and 2-D echo. Full aspirin ordered in the ER. Also Lipitor was increased to 80 mg daily ER. Check lipid panel 2. Diabetes mellitus type 2: Hold metformin during hospitalization. Resume Actos. Add sliding scale coverage 3. Essential hypertension: Resume Norvasc, Lopressor and losartan 4. Hyperlipidemia continue statin 5. History of TIA 6. Generalized anxiety disorder resume Xanax GI prophylaxis omeprazole and DVT prophylaxis IV heparin Time with Patient: Greater than 30 (Greater than 50% of the total time spent in counseling and coordination of care.I performed an examination of the patient and discussed their management with the physician Drywall Stripper. I have reviewed the Physician Drywall Stripper's notes and agree with the documented findings and plan of care)
[2018-10-02 16:01] LABS: Creatine Kinase 45 U/L (30-135)
[2018-10-02 16:14] LABS: Creatine Kinase MB 0.2 ng/mL (0.0-2.4); Troponin I <0.012 ng/mL (0.000-0.034)
[2018-10-02] MEDS: INSULIN ASPART (NovoLOG) 100 UNIT/ML VIAL SQ SCH ×2 (18:27→20:11)
[2018-10-02 19:27] LABS: Hemoglobin A1C 5.9 % (4.0-6.0)
[2018-10-02 20:11] LABS: Glucose,Whole Blood 119 mg/dL (75-99)
[2018-10-02] MEDS: METOPROLOL TARTRATE 50 MG TAB PO SCH (20:11)
[2018-10-02] MEDS ORDERED: METOPROLOL TARTRATE 25 MG TAB PO SCH (21:00)
[2018-10-02] MEDS ORDERED: amLODIPine 10 MG TAB PO SCH (21:00)
[2018-10-02] MEDS ORDERED: diphenhydrAMINE 50 MG CAP PO SCH (21:00)
[2018-10-02 22:00] LABS: Creatine Kinase 44 U/L (30-135)
[2018-10-02 22:13] LABS: Creatine Kinase MB 0.3 ng/mL (0.0-2.4); Troponin I <0.012 ng/mL (0.000-0.034)
[2018-10-03 04:37] LABS: Basophils % (A) 1 %; Eosinophils # (A) 0.1 k/uL (0-0.7); Eosinophils % (A) 2 %; HCT 35.8 % (34.0-46.0); HGB 11.4 gm/dL (11.4-16.0); Lymphocytes # (A) 2.2 k/uL (1.0-4.8); Lymphocytes % (A) 38 %; MCH 30.4 pg (25.0-35.0); MCHC 31.9 g/dL (31.0-37.0); MCV 95.1 fL (80.0-100.0); Monocytes # (A) 0.3 k/uL (0-1.0); Monocytes % (A) 6 %; Neutrophils % (A) 52 %; Platelet Count 159 k/uL (150-450); RBC 3.76 m/uL (3.80-5.40); RDW 15.3 % (11.5-15.5); WBC 5.8 k/uL (3.8-10.6)
[2018-10-03 05:10] LABS: Albumin 3.5 g/dL (3.5-5.0); Calcium 9.4 mg/dL (8.4-10.2); Potassium 3.9 mmol/L (3.5-5.1); Total Bilirubin 0.5 mg/dL (0.2-1.3); Total Protein 6.4 g/dL (6.3-8.2)
[2018-10-03] MEDS ORDERED: CAFFEINE CITRATE 60 MG/3 ML VIAL IV PRN (06:00)
[2018-10-03 06:52] LABS: Glucose,Whole Blood 119 mg/dL (75-99)
[2018-10-03] MEDS ORDERED: REGADENOSON 0.4 MG/5 ML SYRINGE IV ONE (07:00)
[2018-10-03] MEDS ORDERED: PANTOPRAZOLE 40 MG TABLET PO SCH (07:30)
[2018-10-03] MEDS ORDERED: PIOGLITAZONE 15 MG TAB PO SCH (09:00)
[2018-10-03] MEDS ORDERED: ATORVASTATIN 80 MG TAB PO SCH (09:00)
[2018-10-03] MEDS ORDERED: LOSARTAN 50 MG TAB PO SCH (09:00)
[2018-10-03] MEDS ORDERED: ASPIRIN 325 MG TAB PO SCH (09:00)
--- NOTE | 2018-10-03 09:36 | P.PN ---
Subjective This is a pleasant 83-year-old female past medical history significant for hypertension, dyslipidemia, diabetes mellitus, gastroesophageal reflux disease and recent CVA with left-sided residual in June 2018. She denies prior history of coronary artery disease. She recently established in the office with Dr. Sandoval earlier in August of this year. She was seen initially yesterday for complaints of chest pain. An acute event was ruled out with negative cardiac enzymes. Repeat EKG this morning was unremarkable with no ST or T-wave changes. She continues to feel intermittent vague chest pain throughout the night. There was no radiation to the arms, back, neck or jaw. She denies shortness of breath, palpitations, dizziness, nausea, vomiting or diaphoresis. Blood pressure 138.70 heart rate 74 afebrile. Repeat laboratory data reviewed, hgb 11.4, plt 159, sodium 141, potassium 3.9, creatinine 0.94, LDL 47, HDL 47. Currently maintained on amlodipine 10 mg daily, aspirin 325 milligrams daily, atorvastatin 80 mg daily, losartan 100 mg daily and Lopressor 50 mg twice a day. Echo has been obtained and will be reviewed. GENERAL: This is a 83-year-old female in no apparent distress at the time of my examination. HEENT: Head is atraumatic, normocephalic. Pupils are equal, round. Sclerae anicteric. Conjunctivae are clear. Mucous membranes of the mouth are moist. Neck is supple. There is no jugular venous distention. No carotid bruit is heard. LUNGS: Clear to auscultation no wheezes, rales or rhonchi. No chest wall tenderness is noted on palpation or with deep breathing. HEART: Regular rate and rhythm without murmurs, rubs or gallops. S1 and S2 heard. EXTREMITIES: No evidence of peripheral edema and no calf tenderness noted. ASSESSMENT Chest pain, atypical for angina. An acute event has been ruled out. Hypertension Dyslipidemia Diabetes mellitus Recent CVA with left-sided residual, June 2018 PLAN An acute event has been ruled out. Discontinue heparin infusion and nitropaste. Proceed with Lexiscan stress test. If abnormal coronary angiography will be considered, if abnormal she may be discharge home to follow up with Dr. Sandoval in 2 weeks. Nurse Practitioner note has been reviewed, I agree with a documented findings and plan of care. Patient was seen and examined. Objective - Vital Signs Vital signs: Vital Signs Temp 97.8 F 10/03/18 08:00 Pulse 74 10/03/18 08:00 Resp 16 10/03/18 08:00 BP 138/70 10/03/18 08:00 Pulse Ox 97 10/03/18 08:00 Intake & Output 10/02/18 10/03/18 10/03/18 18:59 06:59 18:59 Intake Total 118 71.46 Balance 118 71.46 Weight 66.224 kg Intake: Intake, IV Titration 71.46 Amount Heparin Sod,Pork in 0.45% 71.46 NaCl 25,000 unit In 0.45 % NaCl 1 250ml.bag @ 12 UNITS/KG/HR 7.94 mls/hr IV .Q24H [facility] Rx#: [id number] Oral 118 Other: Voiding Method Toilet Toilet # Voids 2 3 1 - Labs CBC & Chem 7: 10/03/18 03:58 10/03/18 03:58 Labs: Abnormal Lab Results - Last 24 Hours (Table) 10/02/18 10/02/18 10/02/18 Range/Units 09:15 09:15 16:35 RBC (3.80-5.40) m/uL APTT 20.8 L (22.0-30.0) sec D-Dimer 0.61 H (<0.60) mg/L FEU Chloride (98-107) mmol/L BUN (7-17) mg/dL Glucose 110 H (74-99) mg/dL POC Glucose (mg/dL) (75-99) mg/dL AST (14-36) U/L 10/02/18 10/02/18 10/03/18 Range/Units 18:59 20:09 03:58 RBC 3.76 L (3.80-5.40) m/uL APTT 83.2 H (22.0-30.0) sec D-Dimer (<0.60) mg/L FEU Chloride (98-107) mmol/L BUN (7-17) mg/dL Glucose (74-99) mg/dL POC Glucose (mg/dL) 119 H (75-99) mg/dL AST (14-36) U/L 10/03/18 10/03/18 10/03/18 Range/Units 03:58 03:58 06:50 RBC (3.80-5.40) m/uL APTT 58.2 H (22.0-30.0) sec D-Dimer (<0.60) mg/L FEU Chloride 109 H (98-107) mmol/L BUN 20 H (7-17) mg/dL Glucose 105 H (74-99) mg/dL POC Glucose (mg/dL) 119 H (75-99) mg/dL AST 43 H (14-36) U/L
--- NOTE | 2018-10-03 10:33 | EST ---
EXERCISE STRESS AGE: 83 SEX: F HT: 5'2" WT: 147 PROTOCOL: Lexiscan Cardiolite Stress Test HEART RATE REST: 74 BLOOD PRESSURE REST: 135/60 MAXIMUM HEART RATE ACHIEVED: 116 MAXIMUM BLOOD PRESSURE: 165/67 INDICATIONS: Chest pain. CLINICAL INFORMATION: Baseline EKG shows sinus rhythm with poor R-wave progression. The patient was given intravenous Lexiscan as per protocol. Did not have chest pain or diagnostic ST-segment depression. CONCLUSION: 1. Negative stress test by EKG criteria. 2. Cardiolite portion of this stress test will be reported separately. MMODL / IJN: [id number] /
--- NOTE | 2018-10-03 10:41 | ECHOF ---
Referral Reason:cp MEASUREMENTS -------- HEIGHT: 157.5 cm WEIGHT: 66.2 kg BP: RVIDd: 3.1 cm (< 3.3) IVSd: 1.0 cm (0.6 - 1.1) LVIDd: 4.5 cm (3.9 - 5.3) LVPWd: 1.1 cm (0.6 - 1.1) IVSs: 1.2 cm LVIDs: 3.2 cm LVPWs: 1.3 cm LAESV Index (A-L): 18.76 ml/m Ao Diam: 2.8 cm (2.0 - 3.7) AV Cusp: 1.9 cm (1.5 - 2.6) LA Diam: 2.3 cm (2.7 - 3.8) MV EXCURSION: 11.540 mm (> 18.000) MV EF SLOPE: 63 mm/s (70 - 150) MV E Aj: 0.70 m/s MV DecT: 321 ms MV A Aj: 1.09 m/s MV E/A Ratio: 0.64 RAP: 5.00 mmHg RVSP: 22.27 mmHg FINDINGS -------- Sinus rhythm. This was a technically adequate study. The left ventricular size is normal. Left ventricular wall thickness is normal. Overall left vent ricular systolic function is normal with, an EF between 55 - 60 %. The right ventricle is normal in size and function. Normal LA size by volume 22+/-6 ml/m2. The right atrium is normal in size. There is mild aortic valve sclerosis. Trace amount of aortic regurgitation. There is no evidence of aortic stenosis. The mitral valve leaflets are mildly thickened. There is trace to mild mitral regurgitation. Trace tricuspid regurgitation present. Right ventricular systolic pressure is normal at < 35 mmHg. There is no evidence of pulmonary hypertension. Trace/mild (physiologic) pulmonic regurgitation. The aortic root size is normal. Normal inferior vena cava with normal inspiratory collapse consistent with estimated right atrial pre ssure of 5 mmHg. There is no pericardial effusion. CONCLUSIONS -------- 1. Sinus rhythm. 2. This was a technically adequate study. 3. The left ventricular size is normal. 4. Left ventricular wall thickness is normal. 5. Overall left ventricular systolic function is normal with, an EF between 55 - 60 %. 6. Normal LA size by volume 22+/-6 ml/m2. 7. There is mild aortic valve sclerosis. 8. Trace amount of aortic regurgitation. 9. There is no evidence of aortic stenosis. 10. The mitral valve leaflets are mildly thickened. 11. There is trace to mild mitral regurgitation. 12. Trace tricuspid regurgitation present. 13. Right ventricular systolic pressure is normal at < 35 mmHg. 14. There is no evidence of pulmonary hypertension. 15. Trace/mild (physiologic) pulmonic regurgitation. 16. The aortic root size is normal. 17. There is no pericardial effusion. LOG SORTER: Nabil Castro RDCS
[2018-10-03] MEDS: INSULIN ASPART (NovoLOG) 100 UNIT/ML VIAL SQ SCH ×2 (10:50→12:34)
[2018-10-03] MEDS: METOPROLOL TARTRATE 50 MG TAB PO SCH (10:55)
--- NOTE | 2018-10-03 11:09 | NM ---
EXAMINATION TYPE: NM stress lexiscan cardiolite DATE OF EXAM: 10/03/2018 COMPARISON: NONE HISTORY: Chest pain TECHNIQUE: After the intravenous administration of 9.98 mCi Tc 99m Sestamibi - Cardiolite resting SP ECT images acquired 45 minutes post injection. The patient received 0.4mg Lexiscan, 26.2 mCi Tc 99m Sestamibi - Stress images obtained [address] injection FINDINGS: Review of stress and rest SPECT images demonstrates no distinct perfusion abnormality. Gated analysi s shows normal wall motion with an estimated left ventricular ejection fraction of 63 %. TID is calcu lated at 0.84, within normal limits. IMPRESSION: No scintigraphic evidence for reversible ischemia.
[2018-10-03 11:46] LABS: Glucose,Whole Blood 187 mg/dL (75-99)
[2018-10-03 12:29] VITALS: BP 147/71; PULSE 70; RESP 18; TEMP 97.9
--- NOTE | 2018-10-03 13:55 | P.DS ---
Providers Date of admission: 10/02/18 11:51 Expected date of discharge: 10/03/18 Attending physician: Emiliana Sheridan Consults: 10/02/18 11:50 Consult Physician Urgent Consulting Provider: Yasir Herring Consult Reason/Comments: cp Do you want consulting provider notified?: Yes Primary care physician: Essence [facility] Course: Discharge diagnosis 1. Chest pain: Troponins negative 3 sets. Acute coronary event has been ruled out. EKG normal sinus rhythm with septal infarct age undetermined. Patient underwent stress test which was negative. Patient has been cleared by cardiology. Chest pain has resolved. Echo shows an EF of 55-60% 2. Diabetes mellitus type 2 3. Essential hypertension: Resume Norvasc, Lopressor and losartan 4. Hyperlipidemia continue statin 5. History of TIA 6. Generalized anxiety disorder resume Xanax Hospital course This is a 83-year-old female, patient of Dr. Correa. She has a known past medical history of diabetes mellitus, hypertension, hyperlipidemia, TIA and anxiety. She was a former smoker. She presents to the emergency room with complaints of chest pain. She reports a heavy pressure in the midsternal area of her chest. She reports that she feels like something is sitting on her chest. Patient admits to having some shortness of breath and had a few episodes of vomiting with her chest discomfort. She took an aspirin with no relief. Her symptoms started yesterday. Patient denies any fever, chills, sweats. Denies any bowel movement changes or urinary symptoms. First troponin is negative. EKG showing a normal sinus rhythm, septal infarct age undetermined. Chest x-rays negative. She started on IV heparin and cardiology has been consulted. She is scheduled for stress test tomorrow morning. Patient does admit to a mild cough again started yesterday. Nonproductive. She denies any sinus congestion. Denies any headache. Denies feeling sick. 10/03/2018 patient's chest pain and shortness of breath have resolved. She underwent a stress test today which was negative. She has been cleared by cardiology for discharge. Troponins were negative 3 sets. Patient's d-dimer was 0.61. Cardiology is aware. No further workup needed at this time patient' s symptoms have resolved. Patient is medically stable for discharge. Her follow-up with cardiology in 2 weeks and her PCP in 1 week. I performed an examination of the patient and discussed their management with the physician Consulting Business Developer. I have reviewed the Physician Consulting Business Developer's notes and agree with the documented findings and plan of care Patient Condition at Discharge: Stable Plan - Discharge Summary Discharge Rx Participant: No New Discharge Prescriptions: Continue diphenhydrAMINE [Benadryl] 50 mg PO HS metFORMIN HCL [Glucophage] 500 mg PO TID Omeprazole 20 mg PO DAILY Atorvastatin [Lipitor] 40 mg PO DAILY Aspirin [Adult Low Dose Aspirin EC] 81 mg PO DAILY Metoprolol Tartrate [Lopressor] 50 mg PO BID Losartan Potassium 100 mg PO DAILY amLODIPine [Norvasc] 10 mg PO HS Pioglitazone [Actos] 15 mg PO DAILY ALPRAZolam [Xanax] 0.25 mg PO HS PRN PRN Reason: Insomnia Ibuprofen [Motrin] 800 mg PO Q6HR PRN PRN Reason: Pain Discharge Medication List Aspirin [Adult Low Dose Aspirin EC] 81 mg PO DAILY 07/25/18 [History] Atorvastatin [Lipitor] 40 mg PO DAILY 07/25/18 [History] Losartan Potassium 100 mg PO DAILY 07/25/18 [History] Metoprolol Tartrate [Lopressor] 50 mg PO BID 07/25/18 [History] Omeprazole 20 mg PO DAILY 07/25/18 [History] diphenhydrAMINE [Benadryl] 50 mg PO HS 07/25/18 [History] metFORMIN HCL [Glucophage] 500 mg PO TID 07/25/18 [History] ALPRAZolam [Xanax] 0.25 mg PO HS PRN 10/02/18 [History] Ibuprofen [Motrin] 800 mg PO Q6HR PRN 10/02/18 [History] Pioglitazone [Actos] 15 mg PO DAILY 10/02/18 [History] amLODIPine [Norvasc] 10 mg PO HS 10/02/18 [History] Follow up Appointment(s)/Referral(s): Ashley Sandoval MD [STAFF PHYSICIAN] - 2 Weeks Essence Dee MD [Primary Care Provider] - 1 Week Activity/Diet/Wound Care/Special Instructions: Diet: diabetic, cardiac Activity: as tolerated Discharge Disposition: HOME SELF-CARE
[2018-10-03] MEDS ORDERED: ACETAMINOPHEN TAB 325 MG TAB PO PRN (15:02)
[2018-10-04] MEDS ORDERED: ASPIRIN 81 MG PO SCH (09:00)
[2018-10-04] MEDS ORDERED: ATORVASTATIN 40 MG TAB PO SCH (09:00)
== END 2018-10-03 15:15 | disposition home or self-care (01) ==
LOC: EC 09:09 → 1SOBS 11:51
PROVIDERS: ADMIT Internal Medicine; ATTEND Internal Medicine
DX: R07.89 Other chest pain (principal); R06.02 Shortness of breath; R11.10 Vomiting, unspecified; R05 Cough; E11.9 Type 2 diabetes mellitus without complications; I10 Essential (primary) hypertension; F41.1 Generalized anxiety disorder; E78.5 Hyperlipidemia, unspecified; K21.9 Gastro-esophageal reflux disease without esophagitis; K76.9 Liver disease, unspecified; Z79.899 Other long term (current) drug therapy; I69.354 Hemiplegia and hemiparesis following cerebral infarction affecting left non-dominant side; Z87.891 Personal history of nicotine dependence; Z87.11 Personal history of peptic ulcer disease; Z81.1 Family history of alcohol abuse and dependence; Z79.82 Long term (current) use of aspirin; Z79.84 Long term (current) use of oral hypoglycemic drugs; Z88.5 Allergy status to narcotic agent; Z88.0 Allergy status to penicillin; E66.9 Obesity, unspecified; Z68.26 Body mass index [BMI] 26.0-26.9, adult
CPT/HCPCS: 96366 ×2; 96376; 96365; 99291; 36415; 94640; 94760; 93005; 93017; 93306; 85379; 83880; 80061; 80053 ×2; 82550; 82553; 83735; 84484; 85025 ×2; 85610; 85730 ×2; 83036; 71046; 78452; G0378 ×2; A9500; J1644 ×2; J2785

== ENCOUNTER 2019-02-27 14:02 | Emergency (ER) | payer MEDICARE ==
[2019-02-27] MEDS ORDERED: SODIUM CHLORIDE 0.9% 1,000 ML IV STA (14:12)
--- NOTE | 2019-02-27 14:13 | ED ---
Neuro HPI - General Chief Complaint: Neuro Symptoms/Deficit Stated Complaint: Poss Stroke Time Seen by Provider: 02/27/19 14:12 Source: family, RN notes reviewed, old records reviewed Mode of arrival: wheelchair Limitations: physical limitation - History of Present Illness Is the patient presenting with stroke symptoms?: Yes (Data) Last Known Well Date: 02/26/19 -: days(s) Initial Comments: This is an 83-year-old female the ER for evaluation. Patient presented evaluation of strokelike symptoms. Please patient is having symptoms of TIA. Patient's a poor historian. History obtained by the family member at bedside in regards to neurological symptoms. Location: speech, altered, other (Confusion) History of same: Yes Place: home Severity: mild Quality: weak Improves With: none Worsens With: none On Anticoagulants: No Context: gradual onset, sudden onset Associated Symptoms: confusion, malaise, weakness Treatments Prior to Arrival: none - Related Data Home Medications: Home Medications Medication Instructions Recorded Confirmed Aspirin [Adult Low Dose Aspirin EC] 81 mg PO DAILY 07/25/18 02/27/19 Atorvastatin [Lipitor] 40 mg PO DAILY 07/25/18 02/27/19 Losartan Potassium 100 mg PO DAILY 07/25/18 02/27/19 Metoprolol Tartrate [Lopressor] 50 mg PO BID 07/25/18 02/27/19 Omeprazole 20 mg PO DAILY 07/25/18 02/27/19 diphenhydrAMINE [Benadryl] 50 mg PO HS 07/25/18 02/27/19 metFORMIN HCL [Glucophage] 500 mg PO TID 07/25/18 02/27/19 ALPRAZolam [Xanax] 0.25 mg PO HS PRN 10/02/18 02/27/19 Ibuprofen [Motrin] 800 mg PO Q6HR PRN 10/02/18 02/27/19 Pioglitazone [Actos] 15 mg PO DAILY 10/02/18 02/27/19 Nitrofurantoin Monohyd/M-Cryst 100 mg PO BID 02/27/19 02/27/19 [Macrobid] Tamsulosin [Flomax] 0.4 mg PO DAILY 02/27/19 02/27/19 amLODIPine [Norvasc] 15 mg PO HS 02/27/19 02/27/19 Allergies/Adverse Reactions: Allergies Allergy/AdvReac Type Severity Reaction Status Date / Time codeine Allergy Unknown Verified 02/27/19 14:40 Penicillins Allergy Rash/Hives Verified 02/27/19 14:40 Review of Systems ROS Statement: Those systems with pertinent positive or pertinent negative responses have been documented in the HPI. ROS Other: All systems not noted in ROS Statement are negative. General Exam - General Exam Comments Initial Comments: NIH of 0 Limitations: physical limitation General appearance: alert, in no apparent distress Head exam: Present: atraumatic, normocephalic, normal inspection Eye exam: Present: normal appearance, PERRL, EOMI. Absent: scleral icterus, conjunctival injection, periorbital swelling ENT exam: Present: normal exam, mucous membranes moist Neck exam: Present: normal inspection. Absent: tenderness, meningismus, lymphadenopathy Respiratory exam: Present: normal lung sounds bilaterally. Absent: respiratory distress, wheezes, rales, rhonchi, stridor Cardiovascular Exam: Present: regular rate, normal rhythm, normal heart sounds. Absent: systolic murmur, diastolic murmur, rubs, gallop, clicks GI/Abdominal exam: Present: soft, normal bowel sounds. Absent: distended, tenderness, guarding, rebound, rigid Extremities exam: Present: normal inspection, full ROM, normal capillary refill. Absent: tenderness, pedal edema, joint swelling, calf tenderness Back exam: Present: normal inspection Neurological exam: Present: alert, oriented X3, CN II-XII intact Psychiatric exam: Present: normal affect, normal mood Skin exam: Present: warm, dry, intact, normal color. Absent: rash Stroke MDM - Lab Data Result diagrams: 02/27/19 14:45 02/27/19 14:45 Lab Results 02/27/19 02/27/19 02/27/19 Range/Units 14:45 14:45 14:45 WBC 8.6 (3.8-10.6) k/uL RBC 3.78 L (3.80-5.40) m/uL Hgb 12.1 (11.4-16.0) gm/dL Hct 35.4 (34.0-46.0) % MCV 93.5 (80.0-100.0) fL MCH 32.0 (25.0-35.0) pg MCHC 34.2 (31.0-37.0) g/dL RDW 14.9 (11.5-15.5) % Plt Count 203 (150-450) k/uL Neutrophils % 74 % Lymphocytes % 13 % Monocytes % 9 % Eosinophils % 1 % Basophils % 1 % Neutrophils # 6.4 (1.3-7.7) k/uL Lymphocytes # 1.1 (1.0-4.8) k/uL Monocytes # 0.8 (0-1.0) k/uL Eosinophils # 0.1 (0-0.7) k/uL Basophils # 0.1 (0-0.2) k/uL PT 9.9 (9.0-12.0) sec INR 0.9 (<1.2) APTT 23.2 (22.0-30.0) sec Sodium 142 (137-145) mmol/L Potassium 4.9 (3.5-5.1) mmol/L Chloride 105 (98-107) mmol/L Carbon Dioxide 24 (22-30) mmol/L Anion Gap 13 mmol/L BUN 23 H (7-17) mg/dL Creatinine 0.97 (0.52-1.04) mg/dL Est GFR (CKD-EPI)AfAm 63 (>60 ml/min/1.73 sqM) Est GFR (CKD-EPI)NonAf 54 (>60 ml/min/1.73 sqM) Glucose 100 H (74-99) mg/dL Calcium 9.8 (8.4-10.2) mg/dL Total Bilirubin 0.8 (0.2-1.3) mg/dL AST 22 (14-36) U/L ALT <6 L (9-52) U/L Alkaline Phosphatase 68 (38-126) U/L Troponin I (0.000-0.034) ng/mL Total Protein 7.5 (6.3-8.2) g/dL Albumin 4.1 (3.5-5.0) g/dL 02/27/19 Range/Units 14:45 WBC (3.8-10.6) k/uL RBC (3.80-5.40) m/uL Hgb (11.4-16.0) gm/dL Hct (34.0-46.0) % MCV (80.0-100.0) fL MCH (25.0-35.0) pg MCHC (31.0-37.0) g/dL RDW (11.5-15.5) % Plt Count (150-450) k/uL Neutrophils % % Lymphocytes % % Monocytes % % Eosinophils % % Basophils % % Neutrophils # (1.3-7.7) k/uL Lymphocytes # (1.0-4.8) k/uL Monocytes # (0-1.0) k/uL Eosinophils # (0-0.7) k/uL Basophils # (0-0.2) k/uL PT (9.0-12.0) sec INR (<1.2) APTT (22.0-30.0) sec Sodium (137-145) mmol/L Potassium (3.5-5.1) mmol/L Chloride (98-107) mmol/L Carbon Dioxide (22-30) mmol/L Anion Gap mmol/L BUN (7-17) mg/dL Creatinine (0.52-1.04) mg/dL Est GFR (CKD-EPI)AfAm (>60 ml/min/1.73 sqM) Est GFR (CKD-EPI)NonAf (>60 ml/min/1.73 sqM) Glucose (74-99) mg/dL Calcium (8.4-10.2) mg/dL Total Bilirubin (0.2-1.3) mg/dL AST (14-36) U/L ALT (9-52) U/L Alkaline Phosphatase (38-126) U/L Troponin I <0.012 (0.000-0.034) ng/mL Total Protein (6.3-8.2) g/dL Albumin (3.5-5.0) g/dL - Thrombolytic Inclusion/Exclusion Thrombolytic Exclusion Criteria: Symptom Onset > 3 Hours - Medical Decision Making 80-year-old female the ER with confusion altered mental status, patient will be admitted with history of TIA for TIA. Patient be admitted for neurological evaluation. - Radiology Data Radiology results: report reviewed (CT brain does show acute evidence of subacute CVA, CTA head and neck), image reviewed - EKG Data -: EKG Interpreted by Me (EKG shows sinus rhythm rate of 89, OH 106, QRS 70, QTc 401) Past Medical History Past Medical History: CVA/TIA, Diabetes Mellitus, GERD/Reflux, Hyperlipidemia, Hypertension, Liver Disease Additional Past Medical History / Comment(s): CVA with L sided weakness June,, multiple TIAs per son with last one possibly 07/26/18, NIDDM type II, gastric ulcer years ago, jaundiced as a teen (water exposure). History of Any Multi-Drug Resistant Organisms: None Reported Past Surgical History: Appendectomy, Hysterectomy, Joint Replacement, Orthopedic Surgery Additional Past Surgical History / Comment(s): R shoulder open surgery, R total knee replacement, R total hip replacement, bilateral wrist carpal tunnel releases, EGD. kidney surgery Past Anesthesia/Blood Transfusion Reactions: No Reported Reaction Past Psychological History: No Psychological Hx Reported Smoking Status: Former smoker Past Alcohol Use History: None Reported Past Drug Use History: None Reported - Past Family History Father Additional Family Medical History / Comment(s): father from issues associated with alcoholism Mother Family Medical History: CVA/TIA, Diabetes Mellitus Sister(s) Family Medical History: Diabetes Mellitus Course Vital Signs 02/27/19 02/27/19 14:07 15:26 Temperature 98.5 F Pulse Rate 89 90 Respiratory 18 18 Rate Blood Pressure 120/65 140/76 O2 Sat by Pulse 96 99 Oximetry Critical Care Time Critical Care Time: Yes Total Critical Care Time: 31 Disposition Clinical Impression: TIA (transient ischemic attack), Cerebrovascular accident, History of stroke with current residual effects Disposition: ADMITTED IP TO THIS [facility] Condition: Serious Is patient prescribed a controlled substance at d/c from ED?: No Referrals: Essence Dee MD [Primary Care Provider] - 1-2 days
[2019-02-27 15:02] LABS: Basophils # (A) 0.1 k/uL (0-0.2); Basophils % (A) 1 %; Eosinophils # (A) 0.1 k/uL (0-0.7); Eosinophils % (A) 1 %; HCT 35.4 % (34.0-46.0); HGB 12.1 gm/dL (11.4-16.0); Lymphocytes # (A) 1.1 k/uL (1.0-4.8); Lymphocytes % (A) 13 %; MCHC 34.2 g/dL (31.0-37.0); MCV 93.5 fL (80.0-100.0); Mean Platelet Volume 7.7; Monocytes # (A) 0.8 k/uL (0-1.0); Monocytes % (A) 9 %; Neutrophils # (A) 6.4 k/uL (1.3-7.7); Neutrophils % (A) 74 %; Platelet Count 203 k/uL (150-450); RBC 3.78 m/uL (3.80-5.40); RDW 14.9 % (11.5-15.5); WBC 8.6 k/uL (3.8-10.6)
[2019-02-27 15:08] LABS: INR 0.9 (<1.2); Partial Thromboplastin Time 23.2 sec (22.0-30.0); Prothrombin Time 9.9 sec (9.0-12.0)
--- NOTE | 2019-02-27 15:15 | XR ---
EXAMINATION TYPE: XR chest 2V DATE OF EXAM: 02/27/2019 COMPARISON: 10/02/2018 HISTORY: 83-year-old female confusion, altered mental status, weakness TECHNIQUE: AP and lateral views FINDINGS: Heart normal size. Atherosclerotic arch calcifications. Mild diffuse interstitial prominence is uncha nged. No consolidation or pleural effusion. IMPRESSION: Chronic changes, possible bronchitis/asthma. No acute process otherwise seen.
[2019-02-27 15:18] LABS: ALT <6 U/L (9-52); AST 22 U/L (14-36); African American GFR (CKD) 63 (>60 ml/min/1.73 sqM); Albumin 4.1 g/dL (3.5-5.0); Alkaline Phosphatase 68 U/L (38-126); Anion Gap 13 mmol/L; Blood Urea Nitrogen 23 mg/dL (7-17); Calcium 9.8 mg/dL (8.4-10.2); Carbon Dioxide 24 mmol/L (22-30); Chloride 105 mmol/L (98-107); Glucose 100 mg/dL (74-99); Potassium 4.9 mmol/L (3.5-5.1); Sodium 142 mmol/L (137-145); Total Bilirubin 0.8 mg/dL (0.2-1.3); Total Protein 7.5 g/dL (6.3-8.2)
--- NOTE | 2019-02-27 15:25 | CT ---
EXAMINATION TYPE: CT brain wo con for TPA DATE OF EXAM: 02/27/2019 COMPARISON: 12-18 HISTORY: Left sided weakness x [address] DLP: 2179.[address] of the brain was performed. The ventricles, basal cisterns and sulci overlying the cerebral convexities demonstrate mild enlargem ent. There is no evidence for intracranial hemorrhage . Small Wedge-shaped decreased attenuation high righ t frontal parietal lobe is felt to reflect an area of acute CVA or no evidence for hemorrhagic transf ormation at this time. There is decreased attenuation about the periventricular white matter and deep white matter of both c erebral hemispheres, compatible with chronic small vessel ischemia. Differential diagnosis does inclu de demyelination. No mass effects are seen.No midline shift. Osseous calvarium is intact. If symptoms persist consider MRI. IMPRESSION: 1. Small Wedge-shaped decreased attenuation high right frontal parietal lobe is felt to reflect an a agata of acute CVA or no evidence for hemorrhagic transformation at this time.
--- NOTE | 2019-02-27 15:28 | CT ---
EXAMINATION TYPE: CT angio head neck DATE OF EXAM: 02/27/2019 COMPARISON: None HISTORY: Left sided weakness x [address] DLP: 306.6 mGycm CONTRAST: Performed with IV Contrast, patient injected with 50 mL of Isovue 370. Combination Contrast CTA cervical carotids and [place] of Kim CTA cervical carotids with 3-D recons truction Contrast CTA of the cervical carotids was performed 3-D reconstruction imaging obtained at a separate workstation. Right carotid system: Mild plaque is seen of the right common carotid artery. There is mild plaque a lso noted at the carotid bulb and proximal ICA. No significant diameter reduction. ECA is patent. Right vertebral artery appears unremarkable. Left carotid system: Mild plaque is seen of the left common carotid artery. There is mild plaque als o noted at the carotid bulb and proximal ICA. No significant diameter reduction. ECA is patent. Lef t vertebral artery appears unremarkable. IMPRESSION: 1. No significant diameter reduction to account for the patient's symptoms. CTA resighini of Kim with 3-D reconstruction Contrast CTA of the resighini of Kim was performed 3-D reconstruction imaging obtained at a separate workstation. Asymmetric decreased perfusion right MCA territory relative to the left. Vascular luminal narrowing o f the distal right MCA at its trifurcation. Vertebrobasilar system is patent. I do not see evidence f or sizable aneurysm or vascular malformation. Please note MRI provides greater sensitivity and speci ficity. Visualized brain appears grossly unremarkable. IMPRESSION: 1. Asymmetric decreased perfusion right MCA territory relative to the left. Vascular luminal narrowin g of the distal right MCA at its trifurcation.
[2019-02-27 21:13] VITALS: BP 130/67; PULSE 82; RESP 20; TEMP 98.1
== END 2019-02-27 17:35 | disposition other institution (70) ==
LOC: SUPCPDRO 14:02 → EC 14:02
DX: I63.9 Cerebral infarction, unspecified (principal); G45.9 Transient cerebral ischemic attack, unspecified; E11.9 Type 2 diabetes mellitus without complications; K21.9 Gastro-esophageal reflux disease without esophagitis; E78.5 Hyperlipidemia, unspecified; I10 Essential (primary) hypertension; Z87.891 Personal history of nicotine dependence; Z88.0 Allergy status to penicillin; Z88.5 Allergy status to narcotic agent; Z79.82 Long term (current) use of aspirin; Z79.84 Long term (current) use of oral hypoglycemic drugs; Z79.899 Other long term (current) drug therapy; Z96.641 Presence of right artificial hip joint; Z96.651 Presence of right artificial knee joint; Z82.3 Family history of stroke
CPT/HCPCS: 36415; 93005; 80053; 84484; 85025; 85610; 85730; 71046; 70496; 70450; 70498; 99291; 96360; 96361; Q9967

== ENCOUNTER 2019-04-06 15:49 | Inpatient (IN) | payer MEDICARE ==
[2019-04-06] MEDS ORDERED: SODIUM CHLORIDE 0.9% 1,000 ML IV ONE (17:03)
--- NOTE | 2019-04-06 17:20 | ED ---
General Adult HPI - General Chief complaint: Weakness Stated complaint: confusion Time Seen by Provider: 04/06/19 17:02 Source: patient, family Mode of arrival: wheelchair Limitations: altered mental status - History of Present Illness Initial comments: Dictation was produced using [employer] dictation software. please excuse any grammatical, word or spelling errors. Chief Complaint: 83-year-old female with history of multiple CVAs and residual left-sided deficits presents with worsening left-sided weakness. History of Present Illness: 83-year-old female she was last known to be normal at approximately 11 AM today. Patient is a poor historian which found reports is possibly due to residual stroke deficit from February of this year. Patient had an occupational therapy home appointment where she was found to be normal. At approximately 3 PM patient was seen by home physical therapy. Family presents at bedside they note that patient has worsening left-sided weakness. She is normally able to lift up her left arm and left upper left leg however they noted that approximately 3 PM she was not able to do it. She has been otherwise generally weak and confused and having hard time walking. Patient does report some weakness her left side. Denies any sensory issues. She woke up this morning her usual baseline health. The ROS documented in this emergency department record has been reviewed and confirmed by me. Those systems with pertinent positive or negative responses have been documented in the HPI. All other systems are other negative and/or noncontributory. PHYSICAL EXAM: General Impression: Alert and oriented x3, not in acute distress HEENT: Normocephalic atraumatic, extra-ocular movements intact, pupils equal and reactive to light bilaterally, mucous membranes moist. Cardiovascular: Heart regular rate and rhythm, S1&S2 audible, no murmurs, rubs or gallops Chest: Lungs clear to auscultation bilaterally, no rhonchi, no wheeze, no rales Abdomen: Bowel sounds present, abdomen soft, non-tender, non-distended, no organomegaly Musculoskeletal: Pulses present and equal in all extremities, no peripheral edema Motor: no focal deficits noted Neurological: CN II-XII grossly intact, no focal motor or sensory deficits noted, answers questions appropriately, alert and oriented 4, identifies objec ts appropriately, no aphasia, left upper and left lower extremity drift, no sensory deficits, follows commands Skin: Intact with no visualized rashes ED course: 83-year-old female presents with chief complaint of strokelike symptoms. Is unclear when patient's time of onset occurred however last she was seen normal at 11 AM. She was next known to be abnormal at 3 PM today. Vital signs upon arrival are within acceptable limits. Family notes that her usual deficit is coordination issues with her left upper and left lower extremity. Today she is noted to have drift of the left arm and left leg. Code stroke was paged. Discussed patient case with Dr. Lloyd who is our stroke neurologist today. He states no intervention indicated Code stroke was paged. Discussed patient case with Dr. Lloyd who reports that patient not a candidate for thrombolysis or thrombectomy or any interv entional procedure. Patient given aspirin. Laboratory evaluation obtained. CBC unremarkable. Coag panel unremarkable. Bolick panel is nonacute. She has mild elevation in renal markers. Urinalysis is positive for nitrates with 25 white blood cells. Tox screen shows positive benzodiazepine. Urinalysis consistent with urinary tract infection she is given 1 g of Rocephin. Patient reevaluated bedside and found to be in stable medical condition. She has improvement of her symptoms. Chest x-ray shows no acute processes. Discussed patient case with Dr. Ring was went except patient's care. Neurology on consultation. EKG interpretation: Ventricular rate 81, normal sinus rhythm, NM interval 162, care is 86, QTC 411. No NM prolongation, no QTC prolongation, no ST or T-wave changes noted. EKG compared to 02/27/2019 showing no changes. Overall, this EKG is unremarkable - Related Data Home Medications Medication Instructions Recorded Confirmed Aspirin [Adult Low Dose Aspirin EC] 81 mg PO DAILY 07/25/18 04/06/19 Losartan Potassium 100 mg PO DAILY 07/25/18 04/06/19 Metoprolol Tartrate [Lopressor] 50 mg PO BID 07/25/18 04/06/19 Omeprazole 20 mg PO DAILY 07/25/18 04/06/19 ALPRAZolam [Xanax] 0.25 mg PO HS PRN 10/02/18 04/06/19 Pioglitazone [Actos] 15 mg PO DAILY 10/02/18 04/06/19 Tamsulosin [Flomax] 0.4 mg PO DAILY 02/27/19 04/06/19 amLODIPine [Norvasc] 10 mg PO DAILY 02/27/19 04/06/19 Atorvastatin Calcium [Lipitor] 20 mg PO DAILY 04/06/19 04/06/19 Furosemide [Lasix] 20 mg PO DAILY PRN 04/06/19 04/06/19 Allergies Allergy/AdvReac Type Severity Reaction Status Date / Time codeine Allergy Unknown Verified 04/06/19 17:19 Penicillins Allergy Rash/Hives Verified 04/06/19 17:19 Review of Systems ROS Statement: Those systems with pertinent positive or pertinent negative responses have been documented in the HPI. ROS Other: All systems not noted in ROS Statement are negative. Past Medical History Past Medical History: CVA/TIA, Diabetes Mellitus, GERD/Reflux, Hyperlipidemia, Hypertension, Liver Disease Additional Past Medical History / Comment(s): CVA with L sided weakness June,, multiple TIAs per son with last one possibly 07/26/18, NIDDM type II, gastric ulcer years ago, jaundiced as a teen (water exposure). History of Any Multi-Drug Resistant Organisms: None Reported Past Surgical History: Appendectomy, Hysterectomy, Joint Replacement, Orthopedic Surgery Additional Past Surgical History / Comment(s): R shoulder open surgery, R total knee replacement, R total hip replacement, bilateral wrist carpal tunnel releases, EGD. kidney surgery Past Anesthesia/Blood Transfusion Reactions: No Reported Reaction Past Psychological History: No Psychological Hx Reported Smoking Status: Former smoker Past Alcohol Use History: None Reported Past Drug Use History: None Reported - Past Family History Father Additional Family Medical History / Comment(s): father from issues associated with alcoholism Mother Family Medical History: CVA/TIA, Diabetes Mellitus Sister(s) Family Medical History: Diabetes Mellitus General Exam Limitations: altered mental status Course Vital Signs 04/06/19 04/06/19 04/06/19 15:54 17:10 17:12 Temperature 99 F 98 F Pulse Rate 83 81 Respiratory 18 18 24 Rate Blood Pressure 102/60 129/84 O2 Sat by Pulse 99 97 Oximetry 04/06/19 04/06/19 04/06/19 17:25 17:30 17:35 Temperature 98 F Pulse Rate 80 79 79 Respiratory 18 23 18 Rate Blood Pressure 138/69 138/69 147/55 O2 Sat by Pulse 97 97 Oximetry 04/06/19 04/06/19 04/06/19 17:55 20:00 20:30 Temperature Pulse Rate 79 87 84 Respiratory 18 8 L 16 Rate Blood Pressure 145/86 115/47 121/85 O2 Sat by Pulse 97 96 95 Oximetry Medical Decision Making - Lab Data Result diagrams: 04/06/19 17:15 04/06/19 17:15 Lab Results 04/06/19 04/06/19 04/06/19 Range/Units 17:15 17:15 17:15 WBC 7.5 (3.8-10.6) k/uL RBC 3.94 (3.80-5.40) m/uL Hgb 12.3 (11.4-16.0) gm/dL Hct 37.7 (34.0-46.0) % MCV 95.6 (80.0-100.0) fL MCH 31.2 (25.0-35.0) pg MCHC 32.7 (31.0-37.0) g/dL RDW 15.9 H (11.5-15.5) % Plt Count 205 (150-450) k/uL Neutrophils % 75 % Lymphocytes % 15 % Monocytes % 6 % Eosinophils % 1 % Basophils % 1 % Neutrophils # 5.7 (1.3-7.7) k/uL Lymphocytes # 1.2 (1.0-4.8) k/uL Monocytes # 0.4 (0-1.0) k/uL Eosinophils # 0.1 (0-0.7) k/uL Basophils # 0.0 (0-0.2) k/uL PT (9.0-12.0) sec INR (<1.2) APTT (22.0-30.0) sec Sodium 140 (137-145) mmol/L Potassium 4.4 (3.5-5.1) mmol/L Chloride 104 (98-107) mmol/L Carbon Dioxide 26 (22-30) mmol/L Anion Gap 10 mmol/L BUN 28 H (7-17) mg/dL Creatinine 1.23 H (0.52-1.04) mg/dL Est GFR (CKD-EPI)AfAm 47 (>60 ml/min/1.73 sqM) Est GFR (CKD-EPI)NonAf 41 (>60 ml/min/1.73 sqM) Glucose 116 H (74-99) mg/dL Calcium 9.8 (8.4-10.2) mg/dL Total Bilirubin 0.4 (0.2-1.3) mg/dL AST 27 (14-36) U/L ALT 26 (9-52) U/L Alkaline Phosphatase 87 (38-126) U/L Total Creatine Kinase 31 (30-135) U/L CK-MB (CK-2) <0.2 (0.0-2.4) ng/mL CK-MB (CK-2) Rel Index Troponin I <0.012 (0.000-0.034) ng/mL Total Protein 7.9 (6.3-8.2) g/dL Albumin 4.4 (3.5-5.0) g/dL Urine Color Urine Appearance (Clear) Urine pH (5.0-8.0) Ur Specific [place] (1.001-1.035) Urine Protein (Negative) Urine Glucose (UA) (Negative) Urine Ketones (Negative) Urine Blood (Negative) Urine Nitrite (Negative) Urine Bilirubin (Negative) Urine Urobilinogen (<2.0) mg/dL Ur Leukocyte Esterase (Negative) Urine RBC (0-5) /hpf Urine WBC (0-5) /hpf Hyaline Casts (0-2) /lpf Urine Mucus (None) /hpf Urine Opiates Screen (NotDetected) Ur Oxycodone Screen (NotDetected) Urine Methadone Screen (NotDetected) Ur Propoxyphene Screen (NotDetected) Ur Barbiturates Screen (NotDetected) U Tricyclic Antidepress (NotDetected) Ur Phencyclidine Scrn (NotDetected) Ur Amphetamines Screen (NotDetected) U Methamphetamines Scrn (NotDetected) U Benzodiazepines Scrn (NotDetected) Urine Cocaine Screen (NotDetected) U Marijuana (THC) Screen (NotDetected) 04/06/19 04/06/19 Range/Units 17:15 19:18 WBC (3.8-10.6) k/uL RBC (3.80-5.40) m/uL Hgb (11.4-16.0) gm/dL Hct (34.0-46.0) % MCV (80.0-100.0) fL MCH (25.0-35.0) pg MCHC (31.0-37.0) g/dL RDW (11.5-15.5) % Plt Count (150-450) k/uL Neutrophils % % Lymphocytes % % Monocytes % % Eosinophils % % Basophils % % Neutrophils # (1.3-7.7) k/uL Lymphocytes # (1.0-4.8) k/uL Monocytes # (0-1.0) k/uL Eosinophils # (0-0.7) k/uL Basophils # (0-0.2) k/uL PT 10.2 (9.0-12.0) sec INR 0.9 (<1.2) APTT 23.3 (22.0-30.0) sec Sodium (137-145) mmol/L Potassium (3.5-5.1) mmol/L Chloride (98-107) mmol/L Carbon Dioxide (22-30) mmol/L Anion Gap mmol/L BUN (7-17) mg/dL Creatinine (0.52-1.04) mg/dL Est GFR (CKD-EPI)AfAm (>60 ml/min/1.73 sqM) Est GFR (CKD-EPI)NonAf (>60 ml/min/1.73 sqM) Glucose (74-99) mg/dL Calcium (8.4-10.2) mg/dL Total Bilirubin (0.2-1.3) mg/dL AST (14-36) U/L ALT (9-52) U/L Alkaline Phosphatase (38-126) U/L Total Creatine Kinase (30-135) U/L CK-MB (CK-2) (0.0-2.4) ng/mL CK-MB (CK-2) Rel Index Troponin I (0.000-0.034) ng/mL Total Protein (6.3-8.2) g/dL Albumin (3.5-5.0) g/dL Urine Color Light Yellow Urine Appearance Clear (Clear) Urine pH 5.5 (5.0-8.0) Ur Specific [place] 1.023 (1.001-1.035) Urine Protein Negative (Negative) Urine Glucose (UA) Negative (Negative) Urine Ketones Negative (Negative) Urine Blood Negative (Negative) Urine Nitrite Positive H (Negative) Urine Bilirubin Negative (Negative) Urine Urobilinogen <2.0 (<2.0) mg/dL Ur Leukocyte Esterase Moderate H (Negative) Urine RBC 2 (0-5) /hpf Urine WBC 25 H (0-5) /hpf Hyaline Casts 10 H (0-2) /lpf Urine Mucus Rare H (None) /hpf Urine Opiates Screen Not Detected (NotDetected) Ur Oxycodone Screen Not Detected (NotDetected) Urine Methadone Screen Not Detected (NotDetected) Ur Propoxyphene Screen Not Detected (NotDetected) Ur Barbiturates Screen Not Detected (NotDetected) U Tricyclic Antidepress Not Detected (NotDetected) Ur Phencyclidine Scrn Not Detected (NotDetected) Ur Amphetamines Screen Not Detected (NotDetected) U Methamphetamines Scrn Not Detected (NotDetected) U Benzodiazepines Scrn Detected H (NotDetected) Urine Cocaine Screen Not Detected (NotDetected) U Marijuana (THC) Screen Not Detected (NotDetected) Disposition Clinical Impression: Neurological symptoms Disposition: ADMITTED IP TO THIS [facility] Condition: Fair Referrals: Celi Yuan MD [Primary Care Provider] - 1-2 days Decision Time: 21:47
[2019-04-06 17:36] LABS: Basophils % (A) 1 %; Eosinophils # (A) 0.1 k/uL (0-0.7); Eosinophils % (A) 1 %; HCT 37.7 % (34.0-46.0); HGB 12.3 gm/dL (11.4-16.0); Lymphocytes # (A) 1.2 k/uL (1.0-4.8); Lymphocytes % (A) 15 %; MCH 31.2 pg (25.0-35.0); MCHC 32.7 g/dL (31.0-37.0); MCV 95.6 fL (80.0-100.0); Mean Platelet Volume 7.5; Monocytes # (A) 0.4 k/uL (0-1.0); Monocytes % (A) 6 %; Neutrophils # (A) 5.7 k/uL (1.3-7.7); Neutrophils % (A) 75 %; Platelet Count 205 k/uL (150-450); RBC 3.94 m/uL (3.80-5.40); RDW 15.9 % (11.5-15.5); WBC 7.5 k/uL (3.8-10.6)
[2019-04-06 17:46] LABS: Albumin 4.4 g/dL (3.5-5.0); Calcium 9.8 mg/dL (8.4-10.2); Potassium 4.4 mmol/L (3.5-5.1); Total Bilirubin 0.4 mg/dL (0.2-1.3); Total Protein 7.9 g/dL (6.3-8.2)
[2019-04-06 17:48] LABS: INR 0.9 (<1.2); Partial Thromboplastin Time 23.3 sec (22.0-30.0); Prothrombin Time 10.2 sec (9.0-12.0)
--- NOTE | 2019-04-06 17:52 | CT ---
EXAMINATION TYPE: CT brain wo con DATE OF EXAM: 04/06/2019 COMPARISON: 02/27/2019 HISTORY: Altered mental status CT DLP: mGycm Automated exposure control for dose reduction was used. FINDINGS: There is cerebral cortical atrophy. There is mild enlargement of the ventricles. This patchy white an d sánchez matter hypodensity in the right parietal lobe consistent with old infarcts. There is no mass e ffect nor midline shift. There is no sign of intracranial hemorrhage. The calvarium is intact. 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 NO ACUTE INTRACRANIAL ABNORMALITY. NO SIGNIFICANT CH SHARONA COMPARED TO OLD EXAM.
[2019-04-06 17:58] LABS: Creatine Kinase 31 U/L (30-135)
[2019-04-06 18:11] LABS: Creatine Kinase MB <0.2 ng/mL (0.0-2.4); Troponin I <0.012 ng/mL (0.000-0.034)
--- NOTE | 2019-04-06 18:13 | CT ---
EXAMINATION TYPE: CT angio head neck DATE OF EXAM: 04/06/2019 HISTORY: Left sided weakness. COMPARISON: 02/27/2019 CT DLP: 337.8 mGycm. Automated Exposure Control for Dose Reduction was Utilized. TECHNIQUE: CTA scan of the neck is performed with IV Contrast, patient injected with 50 mL of Isovue 370, axial images are obtained, coronal and sagittal reformatted images are reviewed. Three-D recons tructed images are created on an independent workstation and reviewed. FINDINGS: Thoracic aorta is atheromatous. There is normal branching pattern of the great vessels on the aortic arch. There is bilateral arterial flow in the subclavian arteries. There is arterial flow in the comm on internal and external carotid arteries bilaterally. There is arterial flow in both vertebral arter ies. There is arterial flow in the anterior middle and posterior cerebral arteries. There is arterial flow in the intracranial internal carotid arteries bilaterally. There is normal contrast opacification of the venous sinuses. There is no mass effect. There is no evidence of intracranial aneurysm or neovas cularity. There is no evidence of carotid or vertebral artery aneurysm or dissection. The basilar art nina fills mostly from the right vertebral artery. I see no evidence of intracranial hemodynamic steno sis. There is sánchez-white matter patchy hypodensity in the right parietal lobe consistent with old infarct. IMPRESSION: Negative CT angiogram of the neck. No significant angiographic abnormality on the CT angiogram of the brain. No adverse change compared to old exam. Right parietal patchy infarct.
--- NOTE | 2019-04-06 18:25 | XR ---
EXAMINATION TYPE: XR chest 1V portable DATE OF EXAM: 04/06/2019 COMPARISON: 02/27/2019 HISTORY: Altered mental status TECHNIQUE: Single frontal view of the chest is obtained. FINDINGS: There is no heart failure nor confluent pneumonic infiltrate. Heart size is normal. Thorac ic aorta is atheromatous. There are chest leads. IMPRESSION: No active cardiopulmonary disease. No change. Normal heart.
[2019-04-06 19:24] LABS: Appearance,Urine Clear (Clear); Bilirubin,Urine Negative (Negative); Blood,Urine Negative (Negative); Color,Urine Light Yellow; Glucose,Urine (UA) Negative (Negative); Hyaline Casts,Urine 10 /lpf (0-2); Ketones,Urine Negative (Negative); Leukocyte Esterase,Urine Moderate (Negative); Mucus,Urine Rare /hpf; Nitrite,Urine Positive (Negative); PH, Urine 5.5 (5.0-8.0); Protein,Urine Negative (Negative); RBC,Urine 2 /hpf (0-5); Specific Gravity,Urine 1.023 (1.001-1.035); Urobilinogen,Urine <2.0 mg/dL (<2.0); WBC,Urine 25 /hpf (0-5)
[2019-04-06 19:33] LABS: Amphetamine Screen,Urine Not Detected (NotDetected); Barbiturate Screen,Urine Not Detected (NotDetected); Benzodiazepines Screen,Urine Detected (NotDetected); Cocaine Screen,Urine Not Detected (NotDetected); Methadone Screen, Urine Not Detected (NotDetected); Opiate Screen,Urine Not Detected (NotDetected); Oxycodone Screen, Urine Not Detected (NotDetected); Phencyclidine Screen,Urine Not Detected (NotDetected); Tricyclic Antidepressant,Urine Not Detected (NotDetected); Urn Cannabinoid Scrn Not Detected (NotDetected)
[2019-04-06] MEDS ORDERED: ASPIRIN 81 MG PO STA (21:39)
[2019-04-07 02:48] LABS: Cholesterol 167 mg/dL (<200); HDL Cholesterol 56 mg/dL (40-60); LDL Cholesterol,Calculated 83 mg/dL (0-99); Triglycerides 142 mg/dL (<150)
[2019-04-07] MEDS: ATORVASTATIN 20 MG TAB PO SCH (09:38)
[2019-04-07] MEDS: PIOGLITAZONE 15 MG TAB PO SCH (09:38)
--- NOTE | 2019-04-07 10:51 | P.CRDCN ---
History of Present Illness Consult date: 04/07/19 Requesting physician: Elton Ring Reason for Consult (text): CVA Chief complaint: Left facial droop and left-sided weakness History of present illness: This is an 83-year-old female who follows with Dr. Sandoval in the office. She has past medical history significant for hypertension diabetes hyperlipidemia, GERD, prior CVA 2. Presented to the hospital on this admission with a left-sided facial droop which was noted by her family member, she also was noted to have a more left-sided weakness than her usual. CAT scan of the brain was performed which revealed cerebral atrophy and old right parietal infarct, no acute intracranial abnormality. No significant change as compared w ith prior exam. Chest x-ray did not reveal any active cardiopulmonary disease. EKG shows a normal sinus rhythm with no acute changes. Blood pressure 144/60 with a heart rate in the 90s, 94% on room air. White blood cell count 7.5, hemoglobin 12.3, platelet count 205. Sodium 140, potassium 4.4, BUN 28 and creatinine 1.2. Troponin 0.012. Cardiology consultation was requested for a DANIEL. Procedure itself as well as the risks and the benefits were explained to the patient in detail. This will be performed today by Dr. Sandoval. Past Medical History Past Medical History: CVA/TIA, Diabetes Mellitus, GERD/Reflux, Hyperlipidemia, Hypertension, Liver Disease Additional Past Medical History / Comment(s): CVA with L sided weakness June,, multiple TIAs per son with last one possibly 07/26/18, NIDDM type II, gastric ulcer years ago, jaundiced as a teen (water exposure). History of Any Multi-Drug Resistant Organisms: None Reported Past Surgical History: Appendectomy, Hysterectomy, Joint Replacement, Orthopedic Surgery Additional Past Surgical History / Comment(s): R shoulder open surgery, R total knee replacement, R total hip replacement, bilateral wrist carpal tunnel releases, EGD. kidney surgery Past Anesthesia/Blood Transfusion Reactions: No Reported Reaction Past Psychological History: No Psychological Hx Reported Additional Psychological History / Comment(s): Pt has a son who is her caregiver living with her. She ambulates with a walker. She finished home care/PT and started outpt PT. Her son manages her meds and performs her accuchecks. He drives her to [employer]. Smoking Status: Former smoker Past Alcohol Use History: None Reported Additional Past Alcohol Use History / Comment(s): Pt started smoking in 1960 and quit in 1993. Past Drug Use History: None Reported - Past Family History Father Family Medical History: Myocardial Infarction ([place]) Additional Family Medical History / Comment(s): father from issues associated with alcoholism Mother Family Medical History: CVA/TIA, Myocardial Infarction ([place]) Sister(s) Family Medical History: Diabetes Mellitus Medications and Allergies Home Medications Medication Instructions Recorded Confirmed Type Aspirin [Adult Low Dose Aspirin EC] 81 mg PO DAILY 07/25/18 04/06/19 History Losartan Potassium 100 mg PO DAILY 07/25/18 04/06/19 History Metoprolol Tartrate [Lopressor] 50 mg PO BID 07/25/18 04/06/19 History Omeprazole 20 mg PO DAILY 07/25/18 04/06/19 History ALPRAZolam [Xanax] 0.25 mg PO HS PRN 10/02/18 04/06/19 History Pioglitazone [Actos] 15 mg PO DAILY 10/02/18 04/06/19 History Tamsulosin [Flomax] 0.4 mg PO DAILY 02/27/19 04/06/19 History amLODIPine [Norvasc] 10 mg PO DAILY 02/27/19 04/06/19 History Atorvastatin Calcium [Lipitor] 20 mg PO DAILY 04/06/19 04/06/19 History Furosemide [Lasix] 20 mg PO DAILY PRN 04/06/19 04/06/19 History Allergies Allergy/AdvReac Type Severity Reaction Status Date / Time codeine Allergy Unknown Verified 04/06/19 17:19 Penicillins Allergy Rash/Hives Verified 04/06/19 17:19 Physical Exam Vitals: Vital Signs Temp Pulse Pulse Resp BP BP Pulse Ox 04/07/19 07:55 98.1 F 118 H 18 145/68 94 L 04/07/19 06:44 98.3 F 127 H 18 167/72 97 04/07/19 04:44 97.7 F 86 16 145/65 96 04/07/19 04:00 97.7 F 86 18 140/65 96 04/07/19 02:44 98.1 F 103 H 16 138/87 98 04/07/19 00:00 98.3 F 86 16 134/87 98 04/06/19 22:44 98.3 F 102 H 16 134/87 98 04/06/19 22:00 98 15 126/95 96 04/06/19 21:30 92 9 L 114/72 96 04/06/19 21:00 88 10 L 127/54 93 L 04/06/19 20:30 84 16 121/85 95 04/06/19 20:00 87 8 L 115/47 96 04/06/19 17:55 79 18 145/86 97 04/06/19 17:35 79 18 147/55 97 04/06/19 17:30 79 23 138/69 04/06/19 17:25 98 F 80 18 138/69 97 04/06/19 17:12 24 04/06/19 17:10 98 F 81 18 129/84 97 04/06/19 15:54 99 F 83 18 102/60 99 Intake and Output 04/06/19 04/07/19 04/07/19 22:59 06:59 14:59 Intake Total 120 Balance 120 Intake: Oral 120 Other: Voiding Method Bedside Commode Diaper Diaper # Voids 1 Weight 60.781 kg 59.1 kg PHYSICAL EXAMINATION: GENERAL: 83-year-old female in no acute distress at the time of my examination HEENT: Head is atraumatic, normocephalic. Pupils equal, round. Sclera anicteric. Conjunctiva are clear. Mucous membranes of the mouth are moist. Neck is supple. There is no elevated jugular venous pressure. No carotid bruit is heard. HEART EXAMINATION: Heart S1 and S2 with systolic ejection murmur is heard CHEST EXAMINATION: Lungs are clear to auscultation and precussion. No chest wall tenderness is noted on palpation or with deep breathing. ABDOMEN: Soft, nontender. Bowel sounds are heard. No organomegaly noted. EXTREMITIES: 2+ peripheral pulses with no evidence of peripheral edema and no calf tenderness noted. NEUROLOGIC patient is awake, alert and oriented 3 . Patient does have weakness of the left upper extremity, no left-sided facial droop noted . Results 04/06/19 17:15 04/06/19 17:15 Cardiac Enzymes 04/06/19 04/06/19 Range/Units 17:15 17:15 AST 27 (14-36) U/L CK-MB (CK-2) <0.2 (0.0-2.4) ng/mL Troponin I <0.012 (0.000-0.034) ng/mL Coagulation 04/06/19 Range/Units 17:15 PT 10.2 (9.0-12.0) sec APTT 23.3 (22.0-30.0) sec Lipids 04/06/19 Range/Units 17:15 Triglycerides 142 (<150) mg/dL Cholesterol 167 (<200) mg/dL HDL Cholesterol 56 (40-60) mg/dL CBC 04/06/19 Range/Units 17:15 WBC 7.5 (3.8-10.6) k/uL RBC 3.94 (3.80-5.40) m/uL Hgb 12.3 (11.4-16.0) gm/dL Hct 37.7 (34.0-46.0) % Plt Count 205 (150-450) k/uL Comprehensive Metabolic Panel 04/06/19 Range/Units 17:15 Sodium 140 (137-145) mmol/L Potassium 4.4 (3.5-5.1) mmol/L Chloride 104 (98-107) mmol/L Carbon Dioxide 26 (22-30) mmol/L BUN 28 H (7-17) mg/dL Creatinine 1.23 H (0.52-1.04) mg/dL Glucose 116 H (74-99) mg/dL Calcium 9.8 (8.4-10.2) mg/dL AST 27 (14-36) U/L ALT 26 (9-52) U/L Alkaline Phosphatase 87 (38-126) U/L Total Protein 7.9 (6.3-8.2) g/dL Albumin 4.4 (3.5-5.0) g/dL Current Medications Generic Name Dose Route Start Last Admin Trade Name Freq PRN Reason Stop Dose Admin Aspirin 325 mg 04/07/19 21:44 Aspirin PO DAILY SUJATA Atorvastatin Calcium 20 mg 04/07/19 09:00 04/07/19 09:38 Lipitor PO 20 mg DAILY SUJATA Administration Sodium Chloride 1,000 mls @ 20 mls/hr 04/06/19 21:45 Saline 0.9% IV .Q24H SUJATA Pioglitazone HCl 15 mg 04/07/19 09:00 04/07/19 09:38 Actos PO 15 mg DAILY SUJATA Administration Intake and Output 04/06/19 04/07/19 04/07/19 22:59 06:59 14:59 Intake Total 120 Balance 120 Intake: Oral 120 Other: Voiding Method Bedside Commode Diaper Diaper # Voids 1 Weight 60.781 kg 59.1 kg 04/06/19 17:15 04/06/19 17:15 EKG Interpretations (text) EKG shows normal sinus rhythm with no acute changes. Assessment and Plan Plan: Assessment and plan #1 left-sided facial droop with associated left-sided weakness, and a patient w ith history of prior CVAs. CAT scan showed cerebral atrophy and old right parietal infarct. No acute intracranial abnormality. #2 diabetes #3 hypertension #4 hyperlipidemia #5 nicotine dependence Plan Patient has been explained the DANIEL procedure as well as its risks performed today by Dr. Sandoval. Further recommendations will be based on those findings and patient's clinical course. DNP note has been reviewed, I agree with a documented findings and plan of care. Patient was seen and examined.
[2019-04-07 12:07] LABS: Glucose,Whole Blood 138 mg/dL (75-99)
[2019-04-07] MEDS ORDERED: fentaNYL (PF) 50 MCG/ML 2 ML AMP ONE (12:47)
[2019-04-07] MEDS: BENZOCAINE SPRAY 1 CAN MUCOUS MEM ONE ×2 (13:18→13:33)
[2019-04-07] MEDS ORDERED: fentaNYL (PF) 50 MCG/ML 2 ML AMP IVP ONE (13:19)
[2019-04-07] MEDS: MIDAZOLAM (PF) 2 MG/2 ML VIAL IVP ONE ×2 (13:19→13:20)
[2019-04-07] MEDS ORDERED: SODIUM CHLORIDE 0.9% 500 ML 500 ML IV ONE (13:34)
--- NOTE | 2019-04-07 13:59 | ECHOT ---
TRANSESOPHAGEAL ECHOCARDIOGRAM TRANSESOPHAGEAL ECHOCARDIOGRAM: INDICATION: Evaluation of left atrial appendage and intracardiac shunting for evaluation of DANIEL. PROCEDURE: After explaining the procedure to the patient, its risks and complications, blood pressure, heart rate, O2 saturation were monitored. The throat was sprayed with Cetacaine. She received 2 mg intravenous Versed, 50 mcg intravenous fentanyl. The probe was introduced esophagus without difficulties. Images were obtained. Following that, the probe was removed. There was no immediate complication. Patient was returned to her room in stable condition. FINDINGS: Left atrial size is normal. Left atrial appendage is normal. Left ventricular size and systolic function are normal. The aortic valve appears to be normal. Mild calcification in the mitral valve was noted. The tricuspid valve is normal. Descending thoracic aorta appears to be normal. No pericardial effusion was noted. 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 Contrast bubble study revealed no evidence of shunting across the interatrial septum with Valsalva maneuver. Doppler pulse wave and color Doppler obtained and revealed a mild mitral and tricuspid regurgitation with trace pulmonic regurgitation. There was no shunting by color Doppler study. CONCLUSION: 1. Normal left ventricular size and systolic function. 2. Normal appearance left atrial appendage. 3. Mild mitral and tricuspid regurgitation. 4. 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 5. No evidence shunting by contrast bubble study. 6. No pericardial effusion. MMODL / IJN: [id number] /
[2019-04-07] MEDS ORDERED: ALPRAZolam 0.25 MG TAB PO PRN (14:21)
--- NOTE | 2019-04-07 14:27 | P.HPIM ---
History of Present Illness H&P Date: 04/07/19 Chief Complaint: Left-sided weakness This is an 83-year-old female patient of Dr. Yuan with past medical history of stroke/TIA with known left-sided residual weakness, hypertension, hyperlipidemia, diabetes mellitus type 2, chronic kidney disease stage III. Most recently, patient presented to the ER on February 26 for TIA and patient was transferred to [facility] and no [facility] and subsequently went to rehab at [facility] [place]. Patient now presents with worsening left-sided weakness to the upper and lower extremities. She denies having any headache no blurred vision, no chest pain. Patient was brought into [facility] emergency center with strokelike symptoms she was noted to have a drift of the left arm and leg and stroke code was called in the emergency center. Case was discussed with stroke neurologist and no intervention was indicated. Patient was given aspirin. EKG was in normal sinus rhythm with no acute ST-T wave changes. CBC w as unremarkable, electrolytes within normal limits, liver function tests within normal limits, troponin negative. BUN 28 creatinine 1.23. Urine drug screen was positive for nitrite and moderate leukoesterase. Urine drug screen detected benzodiazepines. A CT angios head and neck revealed negative CT angiogram of the neck. No significant abnormality CTA of the brain. CT of the brain showed cerebral atrophy and old right parietal infarct. No acute intracranial abnormality. No significant change compared to old exam. Chest x-ray reveals no acute cardiopulmonary disease. Patient was admitted to the cardiac stepdown unit and cardiology consult requested for DANIEL and neurology consult requested. Review of Systems Constitutional: Denies anorexia, Denies chills, Denies fever, Denies lethargy, Denies malaise, Denies poor appetite Ears, nose, mouth and throat: Denies dysphagia, Denies nasal congestion, Denies nasal discharge, Denies vertigo Cardiovascular: Denies chest pain, Denies decreased exercise tolerance, Denies dyspnea on exertion, Denies shortness of breath, Denies syncope Respiratory: Denies cough, Denies cough with sputum, Denies dyspnea, Denies excessive sputum, Denies hemoptysis, Denies home oxygen, Denies wheezing Gastrointestinal: Denies abdominal pain, Denies diarrhea, Denies loss of appetite, Denies nausea, Denies vomiting Genitourinary: Denies dysuria, Denies hematuria Musculoskeletal: Denies frequent falls, Denies gait dysfunction, Denies myalgias Integumentary: Denies pruritus, Denies rash, Denies wounds Neurological: Reports confusion, Reports lack of coordination, Reports weakness, Denies change in mentation, Denies numbness Psychiatric: Denies anxiety, Denies depression Endocrine: Denies fatigue, Denies weight change Past Medical History Past Medical History: CVA/TIA, Diabetes Mellitus, GERD/Reflux, Hyperlipidemia, Hypertension, Liver Disease Additional Past Medical History / Comment(s): CVA with L sided weakness June,, multiple TIAs per son with last one possibly 07/26/18, NIDDM type II, gastric ulcer years ago, jaundiced as a teen (water exposure). History of Any Multi-Drug Resistant Organisms: None Reported Past Surgical History: Appendectomy, Hysterectomy, Joint Replacement, Orthopedic Surgery Additional Past Surgical History / Comment(s): R shoulder open surgery, R total knee replacement, R total hip replacement, bilateral wrist carpal tunnel releases, EGD. kidney surgery Past Anesthesia/Blood Transfusion Reactions: No Reported Reaction Past Psychological History: No Psychological Hx Reported Additional Psychological History / Comment(s): Pt has a son who is her caregiver living with her. She ambulates with a walker. She finished home care/PT and started outpt PT. Her son manages her meds and performs her accuchecks. He drives her to [employer]. Smoking Status: Former smoker Past Alcohol Use History: None Reported Additional Past Alcohol Use History / Comment(s): Pt started smoking in 1960 and quit in 1993. No alcohol abuse. Patient is a . Past Drug Use History: None Reported - Past Family History Father Family Medical History: CVA/TIA, Myocardial Infarction ([place]) Additional Family Medical History / Comment(s): Father at age 90 from stroke per patient. Also documented that father from issues associated with alcoholism Mother Family Medical History: CVA/TIA, Myocardial Infarction ([place]) Additional Family Medical History / Comment(s): Mother at age 90 from myocardial infarction. Sister(s) Family Medical History: Diabetes Mellitus Daughter(s) Additional Family Medical History / Comment(s): Patient states she has 8 children with no major medical problems. Medications and Allergies Home Medications Medication Instructions Recorded Confirmed Type Aspirin [Adult Low Dose Aspirin EC] 81 mg PO DAILY 07/25/18 04/06/19 History Losartan Potassium 100 mg PO DAILY 07/25/18 04/06/19 History Metoprolol Tartrate [Lopressor] 50 mg PO BID 07/25/18 04/06/19 History Omeprazole 20 mg PO DAILY 07/25/18 04/06/19 History ALPRAZolam [Xanax] 0.25 mg PO HS PRN 10/02/18 04/06/19 History Pioglitazone [Actos] 15 mg PO DAILY 10/02/18 04/06/19 History Tamsulosin [Flomax] 0.4 mg PO DAILY 02/27/19 04/06/19 History amLODIPine [Norvasc] 10 mg PO DAILY 02/27/19 04/06/19 History Atorvastatin Calcium [Lipitor] 20 mg PO DAILY 04/06/19 04/06/19 History Furosemide [Lasix] 20 mg PO DAILY PRN 04/06/19 04/06/19 History Allergies Allergy/AdvReac Type Severity Reaction Status Date / Time codeine Allergy Unknown Verified 04/06/19 17:19 Penicillins Allergy Rash/Hives Verified 04/06/19 17:19 Physical Exam Vitals: Vital Signs Temp Pulse Pulse Resp BP BP Pulse Ox 04/07/19 11:30 97.3 F L 123 H 18 141/65 98 04/07/19 07:55 98.1 F 118 H 18 145/68 94 L 04/07/19 06:44 98.3 F 127 H 18 167/72 97 04/07/19 04:44 97.7 F 86 16 145/65 96 04/07/19 04:00 97.7 F 86 18 140/65 96 04/07/19 02:44 98.1 F 103 H 16 138/87 98 04/07/19 00:00 98.3 F 86 16 134/87 98 04/06/19 22:44 98.3 F 102 H 16 134/87 98 04/06/19 22:00 98 15 126/95 96 04/06/19 21:30 92 9 L 114/72 96 04/06/19 21:00 88 10 L 127/54 93 L 04/06/19 20:30 84 16 121/85 95 04/06/19 20:00 87 8 L 115/47 96 04/06/19 17:55 79 18 145/86 97 04/06/19 17:35 79 18 147/55 97 04/06/19 17:30 79 23 138/69 04/06/19 17:25 98 F 80 18 138/69 97 04/06/19 17:12 24 04/06/19 17:10 98 F 81 18 129/84 97 04/06/19 15:54 99 F 83 18 102/60 99 Intake and Output 04/06/19 04/07/19 04/07/19 22:59 06:59 14:59 Intake Total 120 Balance 120 Intake: Oral 120 Other: Voiding Method Bedside Commode Diaper Diaper # Voids 1 0 Weight 60.781 kg 59.1 kg Gen: This is an 83-year-old female. Patient is resting bed and appears to be comfortable and in no acute distress. HEENT: Head is atraumatic, normocephalic. Pupils equal, round. Sclerae is anicteric. NECK: Supple. No JVD. No lymphadenopathy. No thyromegaly. LUNGS: Clear to auscultation. No wheezes or rhonchi. No intercostal retractions. HEART: Regular rate and rhythm. Systolic murmur. ABDOMEN: Soft. Bowel sounds are present. No masses. No tenderness. EXTREMITIES: No pedal edema. No calf tenderness. NEUROLOGICAL: Patient is awake, alert and oriented x3. Weakness to both upper and lower left extremities. Results CBC & Chem 7: 04/06/19 17:15 04/06/19 17:15 Labs: Abnormal Lab Results - Last 24 Hours (Table) 04/06/19 04/06/19 04/06/19 Range/Units 17:15 17:15 19:18 RDW 15.9 H (11.5-15.5) % BUN 28 H (7-17) mg/dL Creatinine 1.23 H (0.52-1.04) mg/dL Glucose 116 H (74-99) mg/dL POC Glucose (mg/dL) (75-99) mg/dL Urine Nitrite Positive H (Negative) Ur Leukocyte Esterase Moderate H (Negative) Urine WBC 25 H (0-5) /hpf Hyaline Casts 10 H (0-2) /lpf Urine Mucus Rare H (None) /hpf U Benzodiazepines Scrn Detected H (NotDetected) 04/07/19 Range/Units 12:05 RDW (11.5-15.5) % BUN (7-17) mg/dL Creatinine (0.52-1.04) mg/dL Glucose (74-99) mg/dL POC Glucose (mg/dL) 138 H (75-99) mg/dL Urine Nitrite (Negative) Ur Leukocyte Esterase (Negative) Urine WBC (0-5) /hpf Hyaline Casts (0-2) /lpf Urine Mucus (None) /hpf U Benzodiazepines Scrn (NotDetected) Microbiology - Last 24 Hours (Table) 04/06/19 19:18 Urine Culture - Preliminary Urine,Voided Thrombosis Risk Factor Assmnt - DVT/VTE Prophylaxis DVT/VTE Prophylaxis: Pharmacologic Prophylaxis ordered - Choose All That Apply Any of the Below Risk Factors Present?: No Other Risk Factors: Yes Each Risk Factor Represents 3 Points: Age 75 years or older Other congenital or acquired thrombophilia - If yes, enter type in comment: No Thrombosis Risk Factor Assessment Total Risk Factor Score: 3 Thrombosis Risk Factor Assessment Level: Moderate Risk Assessment and Plan Plan: 1. Left-sided weakness worse from baseline with possible new TIA/CVA. Patient has a known old right parietal infarct. Consult with neurology. Cardiology for DANIEL. Patient on full strength aspirin. PT, OT, social work. 2. Hypertension. Continue amlodipine 10 mg daily, losartan 100 mg daily, Lopressor 50 mg twice daily. 3. Hyperlipidemia. Continue Lipitor 20 mg daily. 4. Diabetes mellitus type 2. Continue Actos 15 mg daily and NovoLog scale before meals and at bedtime. 5. Chronic kidney disease stage III. Avoid nephrotoxic agents. 6. Possible urinary tract infection. Rocephin 1 g daily. Await urine culture report. 7. Gastroesophageal reflux disease. Continue omeprazole 20 mg daily. 8. Urinary retention. Continue Flomax or 0.4 mg daily. 9. Insomnia. Continue Xanax or 0.25 mg at bedtime as needed. 10. DVT prophylaxis. Heparin subcu. Patient will be admitted to the hospital for a minimum of 2 night stay. Discharge plan: Most likely subacute rehab. PT, OT, speech therapy ordered. Impression and plan of care have been directed as dictated by the signing physician. Marley Dow nurse practitioner acting as scribe for signing physician.
--- NOTE | 2019-04-07 16:10 | P.CNNES ---
History of Present Illness Consult date: 04/07/19 Reason for Consult: TIA/stroke Chief complaint: Weakness History of Present Illness: REFERRING PHYSICIAN: Dr. Celi Yuan HISTORY OF PRESENT ILLNESS: Thank you for allowing me to evaluate Ms. Anisha Antoine. Ms. Antoine is a R-handed 83 year-old woman with PMhx of stroke with residual L-sided weakness, HTN, HLD, DM, chronic kidney disease, who presented to [facility] for worsening L-sided weakness and L facial droop. No family is at bedside for corroborating information. Patient states that her son wanted her to come to the hospital because he was concerned that she was having another stroke when she was told she had L facial droop and weakness. Stroke code was called and no intervention indicated. UA was positive. Patient denies any recent sickness, fever, coughing, sneezing, chest pain, pain with urination, diarrhea/constipation, double/blurry vision. PAST MEDICAL HISTORY: Stroke (residual L-sided weakness), DM, GERD, HLD, HTN, chronic kidney disease PAST SURGICAL HISTORY: Appendectomy, hysterectomy, joint replacement, bilateral wrist carpal tunnel releases HOME MEDICATIONS: Omeprazole, aspirin, metoprolol, losartan, pioglitazone, Xanax PRN, noted pain, tamsulosin, furosemide, atorvastatin ALLERGIES: Codeine, penicillins SOCIAL HISTORY: Patient lives with his son, who is her caregiver. Pt ambulates with a walker. F ormer smoker, quit in 1993. Denies EtOH or drug abuse history. FAMILY HISTORY: Father had stroke and NC. Mother had stroke and NC. Sister with DM. REVIEW OF SYSTEMS: The 14 systems are reviewed and no additional points are identified compared to the review of systems documented history and physical PHYSICAL EXAMINATION: VITAL SIGNS: Temperature 98.1 pulse rate 118 respiratory rate 18 pressure 145/6802 saturation 94% on room air GEN.: NAD, pleasant and cooperative HEENT: NCAT, sclera without icterus NECK: Supple, no carotid bruit SKIN AND EXTREMITIES: Warm to touch, no edema NEURO: MENTAL STATUS: Patient alert and oriented to self, place, time. Able to name the current president. Speech fluent, able to name and repeat, following all commands readily. No right and left disorientation, extinction to double simultaneous stimulation, finger agnosia, neglect. CRANIAL NERVES II THROUGH XII: II: Pupils are equal and reactive to light symmetrically. No afferent pupillary defect. Visual lynne are intact. III, IV, : No ptosis. Extraocular movements full. No nystagmus. V: Facial sensation intact from V1-3. VII. Mild L facial droop. VIII: Hearing intact to finger rub bilaterally. IX, X: Symmetric palate elevation. XII: Shoulder shrug intact. XII: Tongue midline without fasciculation or atrophy. MOTOR: Increased tone in LUE. Pronator drift in LUE. LUE strength 4-/5. Otherwise, RUE, RLE, LLE at least 4/5 strength SENSORY: Intact to light touch in all 4 extremities. REFLEXES: 2+ throughout. Toes are downgoing. COORDINATION: Finger to nose intact although LUE limited by weakness. No dysmetria. GAIT: Narrow-based , able to walk on her own but more stable with walker. DIAGNOSTIC TESTING: LABORATORY: WBC 7.5 hemoglobin 4.3 platelets 205 PT 10.2 INR 0.9 sodium 140 potassium 4.4 chloride 104 bicarb 26 BUN 28 creatinine 1.23 glucose 116 AST 27 ALT 26 troponin <0.012 triglycerides 142 total cholesterol 167 LDL 83 HDL 56 urinalysis positive leukoesterase and nitrite IMAGING: CT Head without contrast 04/06/2019: Cerebral atrophy and old right parietal infarct. No acute intracranial abnormality. No significant change from her total exam CTA head and neck with and without contrast 04/06/2019: Negative CTA of the neck. No significant angiographic abnormality on CT A of the brain. No adverse change compared to old exam. Right parietal patchy infarct. ASSESSMENT and RECOMMENDATIONS: Ms. Antoine is a R-handed 83 year-old woman with PMhx of stroke with residual L-sided weakness, HTN, HLD, DM, chronic kidney disease, who presented to [facility] for worsening L-sided weakness and L facial droop. Patient with no new focal neuro deficits. Labs significant for positive UA. Patient's symptoms are similar to her previous stroke symptoms. Her symptoms at this time most likely recrudenscence of her old stroke symptoms in the setting of urinary tract infection. Treatment per primary team. No additional inpatient neurological work-up or management recommended at this time. Neurology will sign off. Please call with additional question or concerns. Past Medical History Past Medical History: CVA/TIA, Diabetes Mellitus, GERD/Reflux, Hyperlipidemia, Hypertension, Liver Disease Additional Past Medical History / Comment(s): CVA with L sided weakness June,, multiple TIAs per son with last one possibly 07/26/18, NIDDM type II, gastric ulcer years ago, jaundiced as a teen (water exposure). History of Any Multi-Drug Resistant Organisms: None Reported Past Surgical History: Appendectomy, Hysterectomy, Joint Replacement, Orthopedic Surgery Additional Past Surgical History / Comment(s): R shoulder open surgery, R total knee replacement, R total hip replacement, bilateral wrist carpal tunnel releases, EGD. kidney surgery Past Anesthesia/Blood Transfusion Reactions: No Reported Reaction Past Psychological History: No Psychological Hx Reported Additional Psychological History / Comment(s): Pt has a son who is her caregiver living with her. She ambulates with a walker. She finished home care/PT and started outpt PT. Her son manages her meds and performs her accuchecks. He drives her to [employer]. Smoking Status: Former smoker Past Alcohol Use History: None Reported Additional Past Alcohol Use History / Comment(s): Pt started smoking in 1960 and quit in 1993. Past Drug Use History: None Reported - Past Family History Father Family Medical History: Myocardial Infarction ([place]) Additional Family Medical History / Comment(s): father from issues associated with alcoholism Mother Family Medical History: CVA/TIA, Myocardial Infarction ([place]) Sister(s) Family Medical History: Diabetes Mellitus Daughter(s) Additional Family Medical History / Comment(s): Patient states she has 8 children with no major medical problems. Medications and Allergies Home Medications Medication Instructions Recorded Confirmed Type Aspirin [Adult Low Dose Aspirin EC] 81 mg PO DAILY 07/25/18 04/06/19 History Losartan Potassium 100 mg PO DAILY 07/25/18 04/06/19 History Metoprolol Tartrate [Lopressor] 50 mg PO BID 07/25/18 04/06/19 History Omeprazole 20 mg PO DAILY 07/25/18 04/06/19 History ALPRAZolam [Xanax] 0.25 mg PO HS PRN 10/02/18 04/06/19 History Pioglitazone [Actos] 15 mg PO DAILY 10/02/18 04/06/19 History Tamsulosin [Flomax] 0.4 mg PO DAILY 02/27/19 04/06/19 History amLODIPine [Norvasc] 10 mg PO DAILY 02/27/19 04/06/19 History Atorvastatin Calcium [Lipitor] 20 mg PO DAILY 04/06/19 04/06/19 History Furosemide [Lasix] 20 mg PO DAILY PRN 04/06/19 04/06/19 History Allergies Allergy/AdvReac Type Severity Reaction Status Date / Time codeine Allergy Unknown Verified 04/06/19 17:19 Penicillins Allergy Rash/Hives Verified 04/06/19 17:19 Physical Examination - Vital Signs Vital Signs: Vital Signs Temp Pulse Pulse Resp BP BP Pulse Ox 04/07/19 07:55 98.1 F 118 H 18 145/68 94 L 04/07/19 06:44 98.3 F 127 H 18 167/72 97 04/07/19 04:44 97.7 F 86 16 145/65 96 04/07/19 04:00 97.7 F 86 18 140/65 96 04/07/19 02:44 98.1 F 103 H 16 138/87 98 04/07/19 00:00 98.3 F 86 16 134/87 98 04/06/19 22:44 98.3 F 102 H 16 134/87 98 04/06/19 22:00 98 15 126/95 96 04/06/19 21:30 92 9 L 114/72 96 04/06/19 21:00 88 10 L 127/54 93 L 04/06/19 20:30 84 16 121/85 95 04/06/19 20:00 87 8 L 115/47 96 04/06/19 17:55 79 18 145/86 97 04/06/19 17:35 79 18 147/55 97 04/06/19 17:30 79 23 138/69 04/06/19 17:25 98 F 80 18 138/69 97 04/06/19 17:12 24 04/06/19 17:10 98 F 81 18 129/84 97 04/06/19 15:54 99 F 83 18 102/60 99 Intake and Output 04/06/19 04/07/19 04/07/19 22:59 06:59 14:59 Intake Total 120 Balance 120 Intake: Oral 120 Other: Voiding Method Bedside Commode Diaper Diaper # Voids 1 Weight 60.781 kg 59.1 kg Results - Laboratory Findings CBC and BMP: 04/06/19 17:15 04/06/19 17:15 Abnormal Lab Findings: Abnormal Labs 04/06/19 04/06/19 04/06/19 17:15 17:15 19:18 RDW 15.9 H BUN 28 H Creatinine 1.23 H Glucose 116 H Urine Nitrite Positive H Ur Leukocyte Esterase Moderate H Urine WBC 25 H Hyaline Casts 10 H Urine Mucus Rare H U Benzodiazepines Scrn Detected H
[2019-04-07] MEDS: SODIUM CHLORIDE 0.9% 1,000 ML IV SCH ×3 (16:12→22:07)
[2019-04-07] MEDS: METOPROLOL TARTRATE 50 MG TAB PO SCH ×2 (16:12→22:01)
[2019-04-07 16:55] LABS: Glucose,Whole Blood 129 mg/dL (75-99)
[2019-04-07] MEDS: INSULIN ASPART (NovoLOG) 100 UNIT/ML VIAL SQ SCH ×2 (17:09→21:53)
[2019-04-07 20:50] LABS: Glucose,Whole Blood 146 mg/dL (75-99)
[2019-04-07] MEDS: HEPARIN SODIUM,PORCINE 5,000 UNIT/ML 1 ML VIAL SQ SCH (22:01)
[2019-04-07] MEDS: ASPIRIN 325 MG TAB PO SCH (22:01)
[2019-04-08] MEDS: PANTOPRAZOLE 40 MG TABLET PO SCH (05:45)
[2019-04-08 06:30] LABS: Glucose,Whole Blood 93 mg/dL (75-99)
[2019-04-08] MEDS: INSULIN ASPART (NovoLOG) 100 UNIT/ML VIAL SQ SCH ×4 (08:17→21:44)
[2019-04-08] MEDS ORDERED: NON-FORMULARY DRUG (Aspirin [Adult Low Dose Aspirin Ec] 81 MG) PO SCH (09:00)
[2019-04-08] MEDS: HEPARIN SODIUM,PORCINE 5,000 UNIT/ML 1 ML VIAL SQ SCH ×2 (10:22→21:44)
[2019-04-08] MEDS: LOSARTAN 50 MG TAB PO SCH (10:23)
[2019-04-08] MEDS: METOPROLOL TARTRATE 50 MG TAB PO SCH ×3 (10:23→23:28)
[2019-04-08] MEDS: TAMSULOSIN 0.4 MG CAP.ER.24H PO SCH (10:23)
[2019-04-08] MEDS: ATORVASTATIN 20 MG TAB PO SCH (10:23)
[2019-04-08] MEDS: PIOGLITAZONE 15 MG TAB PO SCH (10:23)
[2019-04-08] MEDS: ASPIRIN 325 MG TAB PO SCH (10:23)
[2019-04-08] MEDS: amLODIPine 10 MG TAB PO SCH (10:23)
[2019-04-08] MEDS: SODIUM CHLORIDE 0.9% 1,000 ML IV SCH ×2 (11:46→21:52)
[2019-04-08 12:20] LABS: Glucose,Whole Blood 102 mg/dL (75-99)
--- NOTE | 2019-04-08 14:21 | P.PN ---
Subjective Progress Note Date: 04/08/19 This is an 83-year-old female patient of Dr. Yuan with past medical history of stroke/TIA with known left-sided residual weakness, hypertension, hyperlipidemia, diabetes mellitus type 2, chronic kidney disease stage III. Most recently, patient presented to the ER on February 26 for TIA and patient was transferred to [facility] and no [facility] and subsequently went to rehab at [facility]. Patient now presents with worsening left-sided weakness to the upper and lower extremities. She denies having any headache no blurred vision, no chest pain. Patient was brought into [facility] emergency center with strokelike symptoms she was noted to have a drift of the left arm and leg and stroke code was called in the emergency center. Case was discussed with stroke neurologist and no intervention was indicated. Patient was given aspirin. EKG was in normal sinus rhythm with no acute ST-T wave changes. CBC was unremarkable, electrolytes within normal limits, liver function tests within normal limits, troponin negative. BUN 28 creatinine 1.23. Urine drug screen was positive for nitrite and moderate leukoesterase. Urine drug screen detected benzodiazepines. A CT angios head and neck revealed negative CT angiogram of the neck. No significant abnormality CTA of the brain. CT of the brain showed cerebral atrophy and old right parietal infarct. No acute intracranial abnormality. No significant change compared to old exam. Chest x-ray reveals no acute cardiopulmonary disease. Patient was admitted to the cardiac stepdown unit and cardiology consult requested for DANIEL and neurology consult requested. 03/08: Patient has been seen by neurology with no new focal neural deficits and most likely recrudescence of her old stroke symptoms in the setting of a urinary tract infection. Neurology has signed off. DANIEL shows a normal left atrial size and systolic function, normal left atrial appendage, mild mitral and tricuspid regurgitation, intra-atrial septal aneurysmal formation with no shunting and no echo dropout. No evidence of shunting by contrast bubble study. No pericardial effusion. Patient states that she is feeling better from yesterday. Family have related to assistant case manager that they would like to be evaluated for inpatient rehab. Consult with Dr. Cat added. Patient will be transferred to the [facility] floor. Patient has been afebrile, heart rate 96, blood pressure 142/62, pulse ox 97% on room air. Blood sugars running between 93 and 146. Patient has been evaluated by PT/OT with recommendations for inpatient rehab or subacute rehab. Objective - Vital Signs Vital signs: Vital Signs Temp 98.4 F 04/08/19 11:25 Pulse 96 04/08/19 11:25 Resp 18 04/08/19 11:41 BP 142/62 04/08/19 11:25 Pulse Ox 97 04/08/19 11:25 Intake & Output 04/07/19 04/08/19 04/08/19 18:59 06:59 18:59 Intake Total 540 Balance 540 Weight 65.5 kg Intake: IV 100 Oral 440 Other: Voiding Method Diaper Diaper Diaper # Voids 1 2 - Exam Review of Systems Constitutional: Denies anorexia, Denies chills, Denies fever, Denies lethargy, Denies malaise, Denies poor appetite Ears, nose, mouth and throat: Denies dysphagia, Denies nasal congestion, Denies nasal discharge, Denies vertigo Cardiovascular: Denies chest pain, Denies decreased exercise tolerance, Denies dyspnea on exertion, Denies shortness of breath, Denies syncope Respiratory: Denies cough, Denies cough with sputum, Denies dyspnea, Denies excessive sputum, Denies hemoptysis, Denies home oxygen, Denies wheezing Gastrointestinal: Denies abdominal pain, Denies diarrhea, Denies loss of appetite, Denies nausea, Denies vomiting Genitourinary: Denies dysuria, Denies hematuria Musculoskeletal: Denies frequent falls, Denies gait dysfunction, Denies myalgias Integumentary: Denies pruritus, Denies rash, Denies wounds Neurological: Denies confusion, Reports lack of coordination, Reports weakness, Denies change in mentation, Denies numbness Psychiatric: Denies anxiety, Denies depression Endocrine: Denies fatigue, Denies weight change Gen: This is an 83-year-old female. Patient is resting bed and appears to be comfortable. HEENT: Head is atraumatic, normocephalic. Pupils equal, round. Sclerae is anicteric. NECK: Supple. No JVD. No lymphadenopathy. No thyromegaly. LUNGS: Clear to auscultation. No wheezes or rhonchi. No intercostal retractions. HEART: Regular rate and rhythm. Systolic murmur. ABDOMEN: Soft. Bowel sounds are present. No masses. No tenderness. EXTREMITIES: No pedal edema. No calf tenderness. NEUROLOGICAL: Patient is awake, alert and oriented x3. Weakness to both upper and lower left extremities. - Labs CBC & Chem 7: 04/06/19 17:15 04/06/19 17:15 Labs: Abnormal Lab Results - Last 24 Hours (Table) 04/07/19 04/07/19 04/08/19 Range/Units 16:50 20:49 11:45 POC Glucose (mg/dL) 129 H 146 H 102 H (75-99) mg/dL Microbiology - Last 24 Hours (Table) 04/06/19 19:18 Urine Culture - Preliminary Urine,Voided Gram Neg Bacilli Assessment and Plan Plan: 1. Left-sided weakness worse from baseline with possible new TIA/CVA. Patient has a known old right parietal infarct. Consult with neurology appreciated and neurology has signed off. Cardiology for DANIEL as above. Patient on full strength aspirin. PT, OT, social work. 2. Hypertension. Continue amlodipine 10 mg daily, losartan 100 mg daily, Lopressor 50 mg twice daily. 3. Hyperlipidemia. Continue Lipitor 20 mg daily. 4. Diabetes mellitus type 2. Continue Actos 15 mg daily and NovoLog scale before meals and at bedtime. 5. Chronic kidney disease stage III. Avoid nephrotoxic agents. 6. Possible urinary tract infection. Rocephin 1 g daily. Await urine culture report. 7. Gastroesophageal reflux disease. Continue omeprazole 20 mg daily. 8. Urinary retention. Continue Flomax or 0.4 mg daily. 9. Insomnia. Continue Xanax or 0.25 mg at bedtime as needed. 10. DVT prophylaxis. Heparin subcu. Discharge plan: Most likely subacute rehab or inpatient rehab. PT, OT, speech therapy ordered. Impression and plan of care have been directed as dictated by the signing physician. Marley Dow nurse practitioner acting as scribe for signing physician.
--- NOTE | 2019-04-08 14:57 | P.PN ---
Subjective Progress Note Date: 04/08/19 This is an 83-year-old female who follows with Dr. Sandoval in the office. She has past medical history significant for hypertension diabetes hyperlipidemia, GERD, prior CVA 2. Presented to the hospital on this admission with a left-sided facial droop which was noted by her family member, she also was noted to have a more left-sided weakness than her usual. CAT scan of the brain was performed which revealed cerebral atrophy and old right parietal infarct, no acute intracranial abnormality. No significant change as compared with prior exam. Chest x-ray did not reveal any active cardiopulmonary disease. EKG shows a normal sinus rhythm with no acute changes. Blood pressure 144/60 with a heart rate in the 90s, 94% on room air. White blood cell count 7.5, hemoglobin 12.3, platelet count 205. Sodium 140, potassium 4.4, BUN 28 and creatinine 1.2. Troponin 0.012. Cardiology consultation was requested for a DANIEL. Procedure itself as well as the risks and the benefits were explained to the patient in detail. This will be performed today by Dr. Sandoval. 04/08/2019 Patient underwent a DANIEL yesterday which revealed normal left ventricular size and systolic function, normal appearance of the left atrial appendage, mild mitral and tricuspid regurg, intra-atrial septal aneurysmal formation with no shunting and no echo dropout. No evidence of shunting by contrast bubble study and no pericardial effusion. Objective - Vital Signs Vital signs: Vital Signs Temp 98.4 F 04/08/19 11:25 Pulse 96 04/08/19 11:25 Resp 18 04/08/19 14:42 BP 142/62 04/08/19 11:25 Pulse Ox 97 04/08/19 11:25 Intake & Output 04/07/19 04/08/19 04/08/19 18:59 06:59 18:59 Intake Total 540 Balance 540 Weight 65.5 kg Intake: IV 100 Oral 440 Other: Voiding Method Diaper Diaper Diaper # Voids 1 2 - Exam PHYSICAL EXAMINATION: GENERAL: 83-year-old female in no acute distress at the time of my examination HEENT: Head is atraumatic, normocephalic. Pupils equal, round. Sclera anicteric. Conjunctiva are clear. Mucous membranes of the mouth are moist. Neck is supple. There is no elevated jugular venous pressure. No carotid bruit is heard. HEART EXAMINATION: Heart S1 and S2 with systolic ejection murmur is heard CHEST EXAMINATION: Lungs are clear to auscultation and precussion. No chest wall tenderness is noted on palpation or with deep breathing. ABDOMEN: Soft, nontender. Bowel sounds are heard. No organomegaly noted. EXTREMITIES: 2+ peripheral pulses with no evidence of peripheral edema and no calf tenderness noted. NEUROLOGIC patient is awake, alert and oriented 3 . Patient does have weakness of the left upper extremity, no left-sided facial droop noted - Labs CBC & Chem 7: 04/06/19 17:15 04/06/19 17:15 Labs: Abnormal Lab Results - Last 24 Hours (Table) 04/07/19 04/07/19 04/08/19 Range/Units 16:50 20:49 11:45 POC Glucose (mg/dL) 129 H 146 H 102 H (75-99) mg/dL Microbiology - Last 24 Hours (Table) 04/06/19 19:18 Urine Culture - Preliminary Urine,Voided Gram Neg Bacilli Assessment and Plan Plan: Assessment and plan #1 left-sided facial droop with associated left-sided weakness, and a patient with history of prior CVAs. CAT scan showed cerebral atrophy and old right parietal infarct. No acute intracranial abnormality. #2 diabetes #3 hypertension #4 hyperlipidemia #5 nicotine dependence Plan From cardiology's perspective, we'll follow this patient with you now on an as- needed basis only, please don't hesitate to call with any questions. DNP note has been reviewed, I agree with a documented findings and plan of care. Patient was seen and examined.
--- NOTE | 2019-04-08 15:31 | P.CONS ---
History of Present Illness - Chief Complaint Gait disturbance, left hemiparesthesias - History of Present Illness I had the opportunity to see patient for inpatient rehab consultation with regard to gait disturbance. She was admitted to [facility] April 06 increased left-sided weakness which is seen by cardiology and neurology, Dr. Almonte. Angiogram CT and chest x-ray negative. Head CT demonstrates cerebral atrophy and old right parietal infarct. PT reports minimal assistance for bed mobility moderate assistance for transfers and gait 20 feet with roller walker. OT reports minimal assistance for upper dressing and toileting and moderate assistance for lower dressing, bathing, transfers. Speech therapy notes MOCA 07/25. Previous functional history as elicited son: 83-year-old right-handed white female who is lives in sons one floor home with son and [id number]. Patient receives physical assistance for bathing and dressing as well as gait with roller walker. Patient has previous inpatient rehab experience. Review of Systems Review of systems: ENT: Denies sneezes or discharge. Eyes: Denies discharge or photophobia. Cardiac: Denies chest pain or palpitation. Pulmonary: Denies cough or shortness of breath. Breast: Denies discharge or lumps. Gastrointestinal: Denies nausea, emesis, constipation, diarrhea. Genitourinary: Denies discharge or frequency. Musculoskeletal: Denies muscle or bone aches. Neurologic: Left-sided weakness and spatial relationship problems. Endocrine: Denies shakes or sweats. Oncology: Denies cancers. Dermatologic: Denies rash, itching, pruritus. ALLERGY/immunology: Denies sneezes, rashes. Past Medical History Past Medical History: CVA/TIA, Diabetes Mellitus, GERD/Reflux, Hyperlipidemia, Hypertension, Liver Disease Additional Past Medical History / Comment(s): CVA with L sided weakness June,, multiple TIAs per son with last one possibly 07/26/18, NIDDM type II, gastric ulcer years ago, jaundiced as a teen (water exposure). History of Any Multi-Drug Resistant Organisms: None Reported Past Surgical History: Appendectomy, Hysterectomy, Joint Replacement, Orthopedic Surgery Additional Past Surgical History / Comment(s): R shoulder open surgery, R total knee replacement, R total hip replacement, bilateral wrist carpal tunnel releases, EGD. kidney surgery Past Anesthesia/Blood Transfusion Reactions: No Reported Reaction Past Psychological History: No Psychological Hx Reported Additional Psychological History / Comment(s): Pt has a son who is her caregiver living with her. She ambulates with a walker. She finished home care/PT and started outpt PT. Her son manages her meds and performs her accuchecks. He drives her to [employer]. Smoking Status: Former smoker Past Alcohol Use History: None Reported Additional Past Alcohol Use History / Comment(s): Pt started smoking in 1960 and quit in 1993. Past Drug Use History: None Reported - Past Family History Father Family Medical History: Myocardial Infarction ([place]) Additional Family Medical History / Comment(s): father from issues associated with alcoholism Mother Family Medical History: CVA/TIA, Myocardial Infarction ([place]) Additional Family Medical History / Comment(s): Mother at age 90 from myocardial infarction. Sister(s) Family Medical History: Diabetes Mellitus Daughter(s) Additional Family Medical History / Comment(s): Patient states she has 8 children with no major medical problems. Medications and Allergies Home Medications Medication Instructions Recorded Confirmed Type Aspirin [Adult Low Dose Aspirin EC] 81 mg PO DAILY 07/25/18 04/06/19 History Losartan Potassium 100 mg PO DAILY 07/25/18 04/06/19 History Metoprolol Tartrate [Lopressor] 50 mg PO BID 07/25/18 04/06/19 History Omeprazole 20 mg PO DAILY 07/25/18 04/06/19 History ALPRAZolam [Xanax] 0.25 mg PO HS PRN 10/02/18 04/06/19 History Pioglitazone [Actos] 15 mg PO DAILY 10/02/18 04/06/19 History Tamsulosin [Flomax] 0.4 mg PO DAILY 02/27/19 04/06/19 History amLODIPine [Norvasc] 10 mg PO DAILY 02/27/19 04/06/19 History Atorvastatin Calcium [Lipitor] 20 mg PO DAILY 04/06/19 04/06/19 History Furosemide [Lasix] 20 mg PO DAILY PRN 04/06/19 04/06/19 History Allergies Allergy/AdvReac Type Severity Reaction Status Date / Time codeine Allergy Unknown Verified 04/06/19 17:19 Penicillins Allergy Rash/Hives Verified 04/06/19 17:19 Physical Exam Vitals: Vital Signs Temp Pulse Resp BP Pulse Ox 04/08/19 14:42 18 04/08/19 11:41 18 04/08/19 11:25 98.4 F 96 18 142/62 97 04/08/19 08:00 98.5 F 113 H 18 136/59 96 04/08/19 03:44 98.2 F 79 18 146/77 95 04/08/19 03:40 85 19 04/07/19 23:32 98.8 F 85 19 155/70 95 04/07/19 23:30 83 19 04/07/19 21:44 98.4 F 19 96 04/07/19 20:00 98.4 F 83 19 139/62 96 Intake and Output 04/08/19 04/08/19 04/08/19 06:59 14:59 22:59 Other: Voiding Method Diaper Diaper # Voids 2 Weight 65.5 kg Skin: Atrophic, intact. General: Medium build and comfortable appearance. Head: Normocephalic, atraumatic. Eyes: Symmetric. Pupils equal round. Ears: Symmetric. Hearing within normal limits. Mouth: Clear. Neck: Supple. Carotid without bruit. Cardiac: Regular rate and rhythm. Lungs: Clear anteriorly and posteriorly. Abdomen: Soft active nontender. Extremities: Normal tone. Neurological: Mental status: Alert, cooperative, pleasant. Cranial nerves: Symmetric facial tone and trapezius. Motor: Normal strength and isolation all 4 limbs. Sensation: Intact throughout. DTRs: Symmetric and equal throughout. Mobility: Sits and stands with physical assistance and verbal cueing. Left neglect problems noted. Results CBC & Chem 7: 04/06/19 17:15 04/06/19 17:15 Labs: Abnormal Lab Results - Last 24 Hours (Table) 04/07/19 04/07/19 04/08/19 Range/Units 16:50 20:49 11:45 POC Glucose (mg/dL) 129 H 146 H 102 H (75-99) mg/dL Microbiology - Last 24 Hours (Table) 04/06/19 19:18 Urine Culture - Preliminary Urine,Voided Gram Neg Bacilli Assessment and Plan (1) TIA (transient ischemic attack) Current Visit: Yes Status: Acute Code(s): G45.9 - TRANSIENT CEREBRAL ISCHEMIC ATTACK, UNSPECIFIED SNOMED Code(s): 335139412 Plan: Impression: 1. Gait disturbance due to right-sided stroke result in left hemiparesthesias. 2. Hypertension. 3. Diabetes. 4. History of stroke. Comments and plan: PT, OT, COMM[employer] ongoing. Safety concerns noted as well as cogn itively issues. The family is previously familiar with similar situation. Have discussed inpatient rehab and son seems agreeable and in fact is anticipating transfer tomorrow.
[2019-04-08 17:12] LABS: Glucose,Whole Blood 128 mg/dL (75-99)
[2019-04-08 20:21] LABS: Glucose,Whole Blood 177 mg/dL (75-99)
[2019-04-09 07:01] LABS: Glucose,Whole Blood 128 mg/dL (75-99)
[2019-04-09] MEDS: INSULIN ASPART (NovoLOG) 100 UNIT/ML VIAL SQ SCH ×4 (08:51→21:37)
[2019-04-09] MEDS: LOSARTAN 50 MG TAB PO SCH ×2 (08:53→12:24)
[2019-04-09] MEDS: ASPIRIN 325 MG TAB PO SCH (08:53)
[2019-04-09] MEDS: METOPROLOL TARTRATE 50 MG TAB PO SCH ×2 (08:53→21:33)
[2019-04-09] MEDS: amLODIPine 10 MG TAB PO SCH ×2 (08:53→12:24)
[2019-04-09] MEDS: TAMSULOSIN 0.4 MG CAP.ER.24H PO SCH (08:54)
[2019-04-09] MEDS: ATORVASTATIN 20 MG TAB PO SCH (08:54)
[2019-04-09] MEDS: PANTOPRAZOLE 40 MG TABLET PO SCH (08:54)
[2019-04-09] MEDS: HEPARIN SODIUM,PORCINE 5,000 UNIT/ML 1 ML VIAL SQ SCH ×2 (08:54→21:37)
[2019-04-09] MEDS: PIOGLITAZONE 15 MG TAB PO SCH (08:56)
[2019-04-09 11:57] LABS: Glucose,Whole Blood 124 mg/dL (75-99)
[2019-04-09] MEDS: SODIUM CHLORIDE 0.9% 1,000 ML IV SCH (14:39)
--- NOTE | 2019-04-09 14:50 | P.PN ---
Subjective Progress Note Date: 04/09/19 This is an 83-year-old female patient of Dr. Yuan with past medical history of stroke/TIA with known left-sided residual weakness, hypertension, hyperlipidemia, diabetes mellitus type 2, chronic kidney disease stage III. Most recently, patient presented to the ER on February 26 for TIA and patient was transferred to [facility] and no [facility] and subsequently went to rehab at [facility]. Patient now presents with worsening left-sided weakness to the upper and lower extremities. She denies having any headache no blurred vision, no chest pain. Patient was brought into [facility] emergency center with strokelike symptoms she was noted to have a drift of the left arm and leg and stroke code was called in the emergency center. Case was discussed with stroke neurologist and no intervention was indicated. Patient was given aspirin. EKG was in normal sinus rhythm with no acute ST-T wave changes. CBC was unremarkable, electrolytes within normal limits, liver function tests within normal limits, troponin negative. BUN 28 creatinine 1.23. Urine drug screen was positive for nitrite and moderate leukoesterase. Urine drug screen detected benzodiazepines. A CT angios head and neck revealed negative CT angiogram of the neck. No significant abnormality CTA of the brain. CT of the brain showed cerebral atrophy and old right parietal infarct. No acute intracranial abnormality. No significant change compared to old exam. Chest x-ray reveals no acute cardiopulmonary disease. Patient was admitted to the cardiac stepdown unit and cardiology consult requested for DANIEL and neurology consult requested. 04/08: Patient has been seen by neurology with no new focal neural deficits and most likely recrudescence of her old stroke symptoms in the setting of a urinary tract infection. Neurology has signed off. DANIEL shows a normal left atrial size and systolic function, normal left atrial appendage, mild mitral and tricuspid regurgitation, intra-atrial septal aneurysmal formation with no shunting and no echo dropout. No evidence of shunting by contrast bubble study. No pericardial effusion. Patient states that she is feeling better from yesterday. Family have related to showcase trimmer that they would like to be evaluated for inpatient rehab. Consult with Dr. Cat added. Patient will be transferred to the [facility] floor. Patient has been afebrile, heart rate 96, blood pressure 142/62, pulse ox 97% on room air. Blood sugars running between 93 and 146. Patient has been evaluated by PT/OT with recommendations for inpatient rehab or subacute rehab. 04/09: Patient is seen on the [facility] floor. No worsening of her symptoms. Patient appears to be back to her baseline with residual weakness on the left side. She has been afebrile, blood pressure 132/60, heart rate 60, pulse ox 96% on room air. Urine culture is finalized with pansensitive E. coli and she will be switched to oral cephalosporin. Patient is currently waiting for insurance authorization go to rehab which I hope will occur by tomorrow. Social work is following closely. Objective - Vital Signs Vital signs: Vital Signs Temp 97.6 F 04/09/19 12:01 Pulse 68 04/09/19 12:01 Resp 16 04/09/19 12:01 BP 132/60 04/09/19 12:01 Pulse Ox 96 04/09/19 12:01 Intake & Output 04/08/19 04/09/19 04/09/19 18:59 06:59 18:59 Intake Total 1180 Balance 1180 Intake: Oral 1180 Other: Voiding Method Diaper Diaper # Voids 2 - Exam Review of Systems Constitutional: Denies anorexia, Denies chills, Denies fever, Denies lethargy, Denies malaise, Denies poor appetite Ears, nose, mouth and throat: Denies dysphagia, Denies nasal congestion, Denies nasal discharge, Denies vertigo Cardiovascular: Denies chest pain, Denies decreased exercise tolerance, Denies dyspnea on exertion, Denies shortness of breath, Denies syncope Respiratory: Denies cough, Denies cough with sputum, Denies dyspnea, Denies excessive sputum, Denies hemoptysis, Denies home oxygen, Denies wheezing Gastrointestinal: Denies abdominal pain, Denies diarrhea, Denies loss of appetite, Denies nausea, Denies vomiting Genitourinary: Denies dysuria, Denies hematuria Musculoskeletal: Denies frequent falls, Denies gait dysfunction, Denies myalgias Integumentary: Denies pruritus, Denies rash, Denies wounds Neurological: Denies confusion, Reports lack of coordination, Reports weakness- residual, Denies change in mentation, Denies numbness Psychiatric: Denies anxiety, Denies depression Endocrine: Denies fatigue, Denies weight change Gen: This is an 83-year-old female. Patient is resting bed and appears to be comfortable. HEENT: Head is atraumatic, normocephalic. Pupils equal, round. Sclerae is anicteric. NECK: Supple. No JVD. No lymphadenopathy. No thyromegaly. LUNGS: Clear to auscultation. No wheezes or rhonchi. No intercostal retractions. HEART: Regular rate and rhythm. Systolic murmur. ABDOMEN: Soft. Bowel sounds are present. No masses. No tenderness. EXTREMITIES: No pedal edema. No calf tenderness. NEUROLOGICAL: Patient is awake, alert and oriented x3. Weakness to both upper and lower left extremities at baseline. - Labs CBC & Chem 7: 04/06/19 17:15 04/06/19 17:15 Labs: Abnormal Lab Results - Last 24 Hours (Table) 04/08/19 04/08/19 04/09/19 Range/Units 16:37 20:20 06:57 POC Glucose (mg/dL) 128 H 177 H 128 H (75-99) mg/dL 04/09/19 Range/Units 11:50 POC Glucose (mg/dL) 124 H (75-99) mg/dL Microbiology - Last 24 Hours (Table) 04/06/19 19:18 Urine Culture - Final Urine,Voided Escherichia coli Assessment and Plan Plan: 1. Left-sided weakness worse from baseline with possible new TIA/CVA. Patient has a known old right parietal infarct. Consult with neurology appreciated and neurology has signed off. Cardiology for DANIEL as above. Patient on full str ength aspirin. PT, OT, social work. 2. Hypertension. Continue amlodipine 10 mg daily, losartan 100 mg daily, Lopressor 50 mg twice daily. 3. Hyperlipidemia. Continue Lipitor 20 mg daily. 4. Diabetes mellitus type 2. Continue Actos 15 mg daily and NovoLog scale before meals and at bedtime. 5. Chronic kidney disease stage III. Avoid nephrotoxic agents. 6. E. coli urinary tract infection. Rocephin transition to oral cephalosporin. 7. Gastroesophageal reflux disease. Continue omeprazole 20 mg daily. 8. Urinary retention. Continue Flomax or 0.4 mg daily. 9. Insomnia. Continue Xanax or 0.25 mg at bedtime as needed. 10. DVT prophylaxis. Heparin subcu. Discharge plan: subacute rehab or inpatient rehab. PT, OT, speech therapy ordered. Awaiting insurance authorization. Impression and plan of care have been directed as dictated by the signing physician. Marley Dow nurse practitioner acting as scribe for signing physician.
--- NOTE | 2019-04-09 14:53 | P.DS ---
Providers Date of admission: 04/06/19 21:44 Expected date of discharge: 04/10/19 Attending physician: Elton Ring Consults: 04/06/19 21:43 Consult Physician Routine Consulting Provider: Irina Almonte Consult Reason/Comments: stroke Do you want consulting provider notified?: Yes 04/07/19 10:12 Consult Physician Routine Consulting Provider: Yasir Herring Consult Reason/Comments: DANIEL, 3rd stroke Do you want consulting provider notified?: Yes Primary care physician: Celi Yuan [facility] Course: This is an 83-year-old female patient of Dr. Yuan with past medical history of stroke/TIA with known left-sided residual weakness, hypertension, hyperlipidemia, diabetes mellitus type 2, chronic kidney disease stage III. Most recently, patient presented to the ER on February 26 for TIA and patient was transferred to [facility] and subsequently went to rehab at [facility] [place]. Patient now presents with worsening left-sided weakness to the upper and lower extremities. She denies having any headache no blurred vision, no chest pain. Patient was brought into [facility] emergency center with strokelike symptoms she was noted to have a drift of the left arm and leg and stroke code was called in the emergency center. Case was discussed with stroke neurologist and no intervention was indicated. Patient was given aspirin. EKG was in normal sinus rhythm with no acute ST-T wave changes. CBC was unremarkable, electrolytes within normal limits, liver function tests within normal limits, troponin negative. BUN 28 creatinine 1.23. Urine drug screen was positive for nitrite and moderate leukoesterase. Urine drug screen detected benzodiazepines. A CT angios head and neck revealed negative CT angiogram of the neck. No significant abnormality CTA of the brain. CT of the brain showed cerebral atrophy and old right parietal infarct. No acute intracranial abnormality. No significant change compared to old exam. Chest x-ray reveals no acute cardiopulmonary disease. Patient was admitted to the cardiac stepdown unit and cardiology consult requested for DANIEL and neurology consult requested. 04/08: Patient has been seen by neurology with no new focal neural deficits and most likely recrudescence of her old stroke symptoms in the setting of a urinary tract infection. Neurology has signed off. DANIEL shows a normal left atrial size and systolic function, normal left atrial appendage, mild mitral and tricuspid regurgitation, intra-atrial septal aneurysmal formation with no shunting and no echo dropout. No evidence of shunting by contrast bubble study. No pericardial effusion. Patient states that she is feeling better from yesterday. Family have related to director of casework department that they would like to be evaluated for inpatient rehab. Consult with Dr. Cat added. Patient will be transferred to the [facility] floor. Patient has been afebrile, heart rate 96, blood pressure 142/62, pulse ox 97% on room air. Blood sugars running between 93 and 146. Patient has been evaluated by PT/OT with recommendations for inpatient rehab or subacute rehab. 04/09: [facility] No worsening of her symptoms. Patient appears to be back to her baseline with residual weakness on the left side. She has been afebrile, blood pressure 132/60, heart rate 60, pulse ox 96% on room air. Urine culture is finalized with pansensitive E. coli and she will be switched to oral cephalosporin. Patient is currently waiting for insurance authorization go to rehab which I hope will occur by tomorrow. Social work is following closely. 04/10: The patient has been afebrile, heart rate 73, blood pressure 105/61, pulse ox 95% on room air. Blood sugars are running between 121-195. Insurance authorization has been obtained for subacute rehab and patient will be discharged once all arrangements are completed. Discharge diagnoses: 1. Left-sided weakness worse from baseline with possible new TIA/CVA. Patient has a known old right parietal infarct. 2. Hypertension. 3. Hyperlipidemia. 4. Diabetes mellitus type 2. 5. Chronic kidney disease stage III. 6. E. coli urinary tract infection. 7. Gastroesophageal reflux disease. 8. Urinary retention. 9. Insomnia. Discharge plan: [place] under the care of Dr. Yuan. Impression and plan of care have been directed as dictated by the signing physician. Marley Dow nurse practitioner acting as scribe for signing physician. Patient Condition at Discharge: Good Plan - Discharge Summary Discharge Rx Participant: No New Discharge Prescriptions: New Aspirin 325 mg PO DAILY tab Cefuroxime [Ceftin] 250 mg PO BID #14 tablet Continue Omeprazole 20 mg PO DAILY Metoprolol Tartrate [Lopressor] 50 mg PO BID Losartan Potassium 100 mg PO DAILY Pioglitazone [Actos] 15 mg PO DAILY ALPRAZolam [Xanax] 0.25 mg PO HS PRN PRN Reason: Insomnia amLODIPine [Norvasc] 10 mg PO DAILY Tamsulosin [Flomax] 0.4 mg PO DAILY Furosemide [Lasix] 20 mg PO DAILY PRN PRN Reason: Edema Atorvastatin Calcium [Lipitor] 20 mg PO DAILY Discontinued Aspirin [Adult Low Dose Aspirin EC] 81 mg PO DAILY Discharge Medication List Losartan Potassium 100 mg PO DAILY 07/25/18 [History] Metoprolol Tartrate [Lopressor] 50 mg PO BID 07/25/18 [History] Omeprazole 20 mg PO DAILY 07/25/18 [History] ALPRAZolam [Xanax] 0.25 mg PO HS PRN 10/02/18 [History] Pioglitazone [Actos] 15 mg PO DAILY 10/02/18 [History] Tamsulosin [Flomax] 0.4 mg PO DAILY 02/27/19 [History] amLODIPine [Norvasc] 10 mg PO DAILY 02/27/19 [History] Atorvastatin Calcium [Lipitor] 20 mg PO DAILY 04/06/19 [History] Furosemide [Lasix] 20 mg PO DAILY PRN 04/06/19 [History] Aspirin 325 mg PO DAILY tab 04/09/19 [Rx] Cefuroxime [Ceftin] 250 mg PO BID #14 tablet 04/09/19 [Rx] Follow up Appointment(s)/Referral(s): Celi Yuan MD [Primary Care Provider] - 1 Week (after discharge) Activity/Diet/Wound Care/Special Instructions: inpatient rehab Discharge Disposition: TRANSFER TO SNF/ECF
[2019-04-09] MEDS: CEFDINIR 300 MG CAP PO SCH ×2 (15:42→21:58)
[2019-04-09 16:49] LABS: Glucose,Whole Blood 121 mg/dL (75-99)
[2019-04-09 20:06] LABS: Glucose,Whole Blood 195 mg/dL (75-99)
[2019-04-10 07:25] LABS: Glucose,Whole Blood 123 mg/dL (75-99)
[2019-04-10] MEDS: INSULIN ASPART (NovoLOG) 100 UNIT/ML VIAL SQ SCH ×2 (07:42→12:58)
[2019-04-10] MEDS: ATORVASTATIN 20 MG TAB PO SCH (09:05)
[2019-04-10] MEDS: TAMSULOSIN 0.4 MG CAP.ER.24H PO SCH (09:06)
[2019-04-10] MEDS: ASPIRIN 325 MG TAB PO SCH (09:06)
[2019-04-10] MEDS: amLODIPine 10 MG TAB PO SCH (09:06)
[2019-04-10] MEDS: METOPROLOL TARTRATE 50 MG TAB PO SCH (09:06)
[2019-04-10] MEDS: PIOGLITAZONE 15 MG TAB PO SCH (09:06)
[2019-04-10] MEDS: CEFDINIR 300 MG CAP PO SCH (09:06)
[2019-04-10] MEDS: PANTOPRAZOLE 40 MG TABLET PO SCH (09:06)
[2019-04-10] MEDS: LOSARTAN 50 MG TAB PO SCH (09:06)
[2019-04-10] MEDS: HEPARIN SODIUM,PORCINE 5,000 UNIT/ML 1 ML VIAL SQ SCH (09:06)
[2019-04-10 11:48] LABS: Glucose,Whole Blood 145 mg/dL (75-99)
[2019-04-10 12:13] VITALS: BP 125/58; PULSE 69; TEMP 98.1
[2019-04-10 13:40] VITALS: RESP 16
--- NOTE | 2019-04-14 01:37 | CDI ---
Documentation Clarification Form Date: 04/14/19 From: Kwame Salgado Phone: call to [phone] Admit Date: 04/06/2019 9:44:00 PM Patient Name: Anisha Antoine Visit Number: [id number] Discharge Date: 04/10/2019 2:12:00 PM ATTENTION: The Clinical Documentation Specialists (CDI) and [facility] Coding Staff appreciate your assistance in clarifying documentation. Please respond to the clarification below the line at the bottom and electronically sign. The CDI & [facility] Coding staff will review the response and follow-up if needed. Please note: Queries are made part of the Legal Health Record. If you have any questions, please contact the author of this message via ITS. Dr. Marley Dow, The patients principal diagnosis has not been clearly identified and requires clarification. She presented with Left sided weakness. 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 In 04/08 Delvin Deluna consult note mentioned "Gait disturbance due to right- sided stroke result in left hemiparesthesias". In DS note mentioned "04/08: Patient has been seen by neurology with no new focal neural deficits and most likely recrudescence of her old stroke symptoms in the setting of a urinary tract infection and Left-sided weakness worse from baseline with possible new TIA/CVA.Patient has a known old right parietal infarct" In your professional opinion, can you please clarify which diagnosis, after study, accounted for the patients presenting symptoms and was the reason chiefly responsible for the admission? CVA TIA Recrudescence of old CVA. Other Please clarify , Recrudenscence of her old stroke symptoms in the setting of urinary tract infection. no new TIA/CVA. MTDD
== END 2019-04-10 14:12 | DRG 690 ==
LOC: EC 15:49 → 3SCARD 21:44 → 3NMEDONC 04-08 17:24
PROVIDERS: ADMIT Internal Medicine Geriatric Medicine; ATTEND Internal Medicine Geriatric Medicine
DX: N39.0 Urinary tract infection, site not specified (principal); I69.354 Hemiplegia and hemiparesis following cerebral infarction affecting left non-dominant side; I12.9 Hypertensive chronic kidney disease with stage 1 through stage 4 chronic kidney disease, or unspecified chronic kidney disease; I08.1 Rheumatic disorders of both mitral and tricuspid valves; G47.00 Insomnia, unspecified; R29.810 Facial weakness; N18.3 Chronic kidney disease, stage 3 (moderate); F17.200 Nicotine dependence, unspecified, uncomplicated; E78.5 Hyperlipidemia, unspecified; E11.69 Type 2 diabetes mellitus with other specified complication; B96.20 Unspecified Escherichia coli [E. coli] as the cause of diseases classified elsewhere; Z96.643 Presence of artificial hip joint, bilateral; Z96.651 Presence of right artificial knee joint; K21.9 Gastro-esophageal reflux disease without esophagitis; E11.22 Type 2 diabetes mellitus with diabetic chronic kidney disease; Z79.84 Long term (current) use of oral hypoglycemic drugs; Z79.82 Long term (current) use of aspirin; Z79.899 Other long term (current) drug therapy; Z82.49 Family history of ischemic heart disease and other diseases of the circulatory system; Z82.3 Family history of stroke; Z83.3 Family history of diabetes mellitus; Z90.710 Acquired absence of both cervix and uterus; Z90.49 Acquired absence of other specified parts of digestive tract; Z88.5 Allergy status to narcotic agent; Z88.0 Allergy status to penicillin
CPT/HCPCS: 36415; 70450; 70496; 70498; 71045; 80053; 80061; 80306; 81001; 82550; 82553; 84484; 85025; 85610; 85730; 87077; 87086; 87186; 93005; 93312; 93320; 93325; 94760; 96361; 96365; 99285

== ENCOUNTER → 2019-05-07 | Outpatient (CLI) | payer MEDICARE ==
--- NOTE | 2019-05-07 15:31 | CT ---
EXAMINATION TYPE: CT angio chest DATE OF EXAM: 05/07/2019 COMPARISON: None HISTORY: Chest pain and abnormal EKG. CT DLP: 155.9 mGycm CONTRAST: CT chest with contrast and 3D reconstruction with MIP imaging is performed with IV Contrast, patient injected with 50 mL of Isovue 370. Contrast-enhanced CT of the chest was performed through the course of the pulmonary arteries with lg g and mediastinal window settings submitted. 3D reconstruction with MIP imaging was also performed. PULMONARY ARTERIES: The pulmonary arteries and their major tributaries are patent. I do not see gayatri dence for sizable filling defect to suggest pulmonary embolic process. LUNGS: The lungs are clear and free of infiltrate. No evidence for atelectasis. No pulmonary nodule or mass is detected. No pleural effusion. MEDIASTINUM: Thoracic aorta is of normal caliber,however, evaluation is limited given timing of the contrast bolus. If there is concern for thoracic aortic pathology consider DANIEL. Correlate clinicall y . The heart is not enlarged. No evidence for mediastinal mass. No mediastinal lymph nodes greater than 1cm. HILAR STRUCTURES: No evidence for mass. No hilar lymph nodes greater than 1 cm. UPPER ABDOMEN: No significant abnormality is seen. IMPRESSION: 1. No evidence for Pulmonary embolism at this time.
== END | disposition home or self-care (01) ==
LOC: RADCTMAIN 14:16
PROVIDERS: ATTEND Internal Medicine
DX: R07.9 Chest pain, unspecified (principal); R94.31 Abnormal electrocardiogram [ECG] [EKG]; R79.89 Other specified abnormal findings of blood chemistry
CPT/HCPCS: 82565; 84520; 71275; 36415; Q9967

== ENCOUNTER → 2019-05-12 | Outpatient (CLI) | payer MEDICARE ==
[~2019-05-12] MED LIST: REGADENOSON 0.4 MG/5 ML SYRINGE IV ONE
--- NOTE | 2019-05-12 10:33 | EST ---
EXERCISE STRESS DATE OF SERVICE: 05/12/2019 AGE: 83 SEX: Female HT: 5'2" WT: 134 pounds PROTOCOL: Lexiscan Cardiolite STAGE: DURATION OF EXERCISE: HEART RATE REST: 65 BLOOD PRESSURE REST: 140/71 MAXIMUM HEART RATE ACHIEVED: 103 MAXIMUM BLOOD PRESSURE: 206/72 85% MPHR: 116 100% MPHR: 137 METS: INDICATIONS: Chest pressure. CLINICAL INFORMATION: Baseline rhythm is sinus mechanism, rate 65, normal axis and intervals, poor R progression V1 to V3. Baseline blood pressure 140/71 mmHg. Patient received an injection of Lexiscan. Electrocardiograph monitoring revealed no evidence of diagnostic ischemic ST deviation. Cardiolite was injected per protocol. CONCLUSION: 1. Nondiagnostic electrocardiograph stress testing. 2. Nuclear images will be reported separately. MMODL / IJN: [id number] /
--- NOTE | 2019-05-12 12:18 | NM ---
EXAMINATION TYPE: NM stress lexiscan cardiolite DATE OF EXAM: 05/12/2019 COMPARISON: Prior nuclear medicine study October 03, 2018 HISTORY: Continued chest pain and pressure, history of hypercholesterolemia, hypertension, diabetes, COPD, and stroke. TECHNIQUE: After the intravenous administration of 9.7 mCi Tc 99m Sestamibi - Cardiolite resting SPE CT images acquired 45 minutes post injection. The patient received 0.4mg Lexiscan, 23.6 mCi Tc 99m Sestamibi - Stress images obtained [address] injection FINDINGS: Review of stress and rest SPECT images demonstrates new small focus of diminished signal on stress im ages versus rest images involving the inferior wall towards the septum seen best on short axis views in which acute ischemia cannot be excluded.. Gated analysis shows normal wall motion with an estimat ed left ventricular ejection fraction of 61 %. IMPRESSION: Cannot exclude area of acute ischemia inferior left ventricular wall. Need to further inv estigate by direct catheter angiogram should be based on clinical and EKG correlation. [email or web address] not working at time of dictation to give yellow notification.
== END | disposition home or self-care (01) ==
LOC: RADNMMAIN 07:47
PROVIDERS: ATTEND Internal Medicine
DX: R07.9 Chest pain, unspecified (principal)
CPT/HCPCS: 93017; 78452; A9500; J2785

== ENCOUNTER 2019-09-10 11:00 | Inpatient (IN) | payer MEDICARE ==
[2019-09-10] MEDS ORDERED: SODIUM CHLORIDE 0.9% 500 ML 500 ML IV STA (11:22)
--- NOTE | 2019-09-10 11:33 | ED ---
General Adult HPI - General Chief complaint: Weakness Stated complaint: Left arm pain Time Seen by Provider: 09/10/19 11:10 Source: patient, RN notes reviewed, old records reviewed Mode of arrival: wheelchair Limitations: no limitations - History of Present Illness Initial comments: 83-year-old female presenting for evaluation of generalized weakness and difficulty ambulating. Patient is accompanied by her son who states that she had previously been in to 12 over the past 2 weeks has been unable to walk. She has history of previous stroke with residual left-sided weakness. She had been complaining of some left arm pain and son thought this may be related to recurrent stroke. This has been present for 4 days. They did call the primary care physician who encouraged the patient presented to the emergency department for evaluation. Patient denies any chest pain or dyspnea. She reports only a mild cough. No fever. No abdominal pain. No nausea vomiting. No dysuria or hematuria. - Related Data Home Medications Medication Instructions Recorded Confirmed Losartan Potassium 100 mg PO DAILY 07/25/18 09/10/19 Metoprolol Tartrate [Lopressor] 50 mg PO BID 07/25/18 09/10/19 Omeprazole 20 mg PO DAILY 07/25/18 09/10/19 amLODIPine [Norvasc] 10 mg PO DAILY 02/27/19 09/10/19 Furosemide [Lasix] 20 mg PO DAILY PRN 04/06/19 09/10/19 Acetaminophen [Tylenol] 500 mg PO Q4-6H PRN 09/10/19 09/10/19 Aspirin EC [Ecotrin Low Dose] 81 mg PO DAILY 09/10/19 09/10/19 Atorvastatin [Lipitor] 40 mg PO DAILY 09/10/19 09/10/19 Doxylamine Succinate [Unisom] 25 mg PO HS 09/10/19 09/10/19 Isosorbide Mononitrate ER [Imdur] 30 mg PO DAILY 09/10/19 09/10/19 Pioglitazone [Actos] 30 mg PO DAILY 09/10/19 09/10/19 Sertraline [Zoloft] 50 mg PO HS 09/10/19 09/10/19 Previous Rx's Medication Instructions Recorded ALPRAZolam [Xanax] 0.25 mg PO HS PRN #3 tab 04/10/19 Allergies Allergy/AdvReac Type Severity Reaction Status Date / Time codeine Allergy Unknown Verified 09/10/19 12:22 Penicillins Allergy Rash/Hives Verified 09/10/19 12:22 Review of Systems ROS Statement: Those systems with pertinent positive or pertinent negative responses have been documented in the HPI. ROS Other: All systems not noted in ROS Statement are negative. Past Medical History Past Medical History: CVA/TIA, Diabetes Mellitus, GERD/Reflux, Hyperlipidemia, Hypertension, Liver Disease Additional Past Medical History / Comment(s): CVA with L sided weakness June,, multiple TIAs per son with last one possibly 07/26/18, NIDDM type II, gastric ulcer years ago, jaundiced as a teen (water exposure). History of Any Multi-Drug Resistant Organisms: None Reported Past Surgical History: Appendectomy, Hysterectomy, Joint Replacement, Orthopedic Surgery Additional Past Surgical History / Comment(s): R shoulder open surgery, R total knee replacement, R total hip replacement, bilateral wrist carpal tunnel releases, EGD. kidney surgery Past Anesthesia/Blood Transfusion Reactions: No Reported Reaction Past Psychological History: No Psychological Hx Reported Smoking Status: Former smoker Past Alcohol Use History: None Reported Past Drug Use History: None Reported - Past Family History Father Family Medical History: Myocardial Infarction (NM) Additional Family Medical History / Comment(s): father from issues associated with alcoholism Mother Family Medical History: CVA/TIA, Myocardial Infarction (NM) Additional Family Medical History / Comment(s): Mother at age 90 from myocardial infarction. Sister(s) Family Medical History: Diabetes Mellitus Daughter(s) Additional Family Medical History / Comment(s): Patient states she has 8 children with no major medical problems. General Exam Limitations: no limitations General appearance: alert, in no apparent distress Head exam: Present: atraumatic, normocephalic Eye exam: Present: normal appearance, PERRL ENT exam: Present: normal exam Neck exam: Present: normal inspection. Absent: tenderness, meningismus Respiratory exam: Present: normal lung sounds bilaterally. Absent: respiratory distress, wheezes Cardiovascular Exam: Present: regular rate, normal rhythm GI/Abdominal exam: Present: soft. Absent: distended, tenderness, guarding Extremities exam: Present: normal inspection, normal capillary refill, other (Distal pulses intact, left upper extremity 2+ brachial, 2+ radial, normal labor custodian strength.) Neurological exam: Present: alert, oriented X3, CN II-XII intact, motor sensory deficit (Patient has an NIH of 1, drift in the left upper extremity, history of previous CVA, at baseline) Psychiatric exam: Present: normal affect, normal mood Skin exam: Present: warm, dry, intact. Absent: cyanosis, diaphoretic Course Vital Signs 09/10/19 11:03 Temperature 98.1 F Pulse Rate 74 Respiratory 18 Rate Blood Pressure 144/62 O2 Sat by Pulse 98 Oximetry Medical Decision Making - Medical Decision Making 83-year-old female presenting with generalized weakness, difficulty ambulating. Patient's symptoms have been progressive over weeks. She developed some left arm pain in the extremity affected by previous CVA, this is 3 days old. Patient is on [address] is performed which shows concern for normal pressure hydrocephalus, as well as acute on chronic ischemia in the right parietal lobe. Chest x-ray negative for focal pneumonia, consistent with COPD. Labs are essentially unremarkable. Urinalysis pending. She is given a full dose aspirin in the emergency department as well as IV hydration. I discussed case with patient's admitting physician Dr. Ching, she is also concerned about spinal stenosis given the bilateral lower extremity weakness and gait difficu lty, she will pursue this diagnosis as an inpatient. Patient is admitted for further evaluation and neurology is placed on consult. - Lab Data Result diagrams: 09/10/19 11:33 09/10/19 11:33 Lab Results 09/10/19 09/10/19 09/10/19 Range/Units 11:33 11:33 11:33 WBC 6.0 (3.8-10.6) k/uL RBC 4.10 (3.80-5.40) m/uL Hgb 11.5 (11.4-16.0) gm/dL Hct 35.8 (34.0-46.0) % MCV 87.4 (80.0-100.0) fL MCH 28.0 (25.0-35.0) pg MCHC 32.0 (31.0-37.0) g/dL RDW 16.2 H (11.5-15.5) % Plt Count 186 (150-450) k/uL Neutrophils % 72 % Lymphocytes % 18 % Monocytes % 5 % Eosinophils % 4 % Basophils % 1 % Neutrophils # 4.3 (1.3-7.7) k/uL Lymphocytes # 1.1 (1.0-4.8) k/uL Monocytes # 0.3 (0-1.0) k/uL Eosinophils # 0.2 (0-0.7) k/uL Basophils # 0.0 (0-0.2) k/uL Anisocytosis Slight PT (9.0-12.0) sec INR (<1.2) APTT (22.0-30.0) sec Sodium 140 (137-145) mmol/L Potassium 4.4 (3.5-5.1) mmol/L Chloride 105 (98-107) mmol/L Carbon Dioxide 27 (22-30) mmol/L Anion Gap 8 mmol/L BUN 32 H (7-17) mg/dL Creatinine 0.92 (0.52-1.04) mg/dL Est GFR (CKD-EPI)AfAm 67 (>60 ml/min/1.73 sqM) Est GFR (CKD-EPI)NonAf 58 (>60 ml/min/1.73 sqM) Glucose 224 H (74-99) mg/dL Plasma Lactic Acid Narayan 1.1 (0.7-2.0) mmol/L Calcium 9.1 (8.4-10.2) mg/dL Total Bilirubin 0.4 (0.2-1.3) mg/dL AST 23 (14-36) U/L ALT 14 (4-34) U/L Alkaline Phosphatase 90 (38-126) U/L Total Protein 7.1 (6.3-8.2) g/dL Albumin 3.8 (3.5-5.0) g/dL 09/10/19 Range/Units 11:33 WBC (3.8-10.6) k/uL RBC (3.80-5.40) m/uL Hgb (11.4-16.0) gm/dL Hct (34.0-46.0) % MCV (80.0-100.0) fL MCH (25.0-35.0) pg MCHC (31.0-37.0) g/dL RDW (11.5-15.5) % Plt Count (150-450) k/uL Neutrophils % % Lymphocytes % % Monocytes % % Eosinophils % % Basophils % % Neutrophils # (1.3-7.7) k/uL Lymphocytes # (1.0-4.8) k/uL Monocytes # (0-1.0) k/uL Eosinophils # (0-0.7) k/uL Basophils # (0-0.2) k/uL Anisocytosis PT 10.5 (9.0-12.0) sec INR 1.0 (<1.2) APTT 24.8 (22.0-30.0) sec Sodium (137-145) mmol/L Potassium (3.5-5.1) mmol/L Chloride (98-107) mmol/L Carbon Dioxide (22-30) mmol/L Anion Gap mmol/L BUN (7-17) mg/dL Creatinine (0.52-1.04) mg/dL Est GFR (CKD-EPI)AfAm (>60 ml/min/1.73 sqM) Est GFR (CKD-EPI)NonAf (>60 ml/min/1.73 sqM) Glucose (74-99) mg/dL Plasma Lactic Acid Narayan (0.7-2.0) mmol/L Calcium (8.4-10.2) mg/dL Total Bilirubin (0.2-1.3) mg/dL AST (14-36) U/L ALT (4-34) U/L Alkaline Phosphatase (38-126) U/L Total Protein (6.3-8.2) g/dL Albumin (3.5-5.0) g/dL Disposition Clinical Impression: CVA (cerebral vascular accident) Disposition: ADMITTED IP TO THIS [facility] Condition: Stable Is patient prescribed a controlled substance at d/c from ED?: No Referrals: Celi Yuan MD [Primary Care Provider] - 1-2 days Decision to Admit Reason: Admit from EC Decision Date: 09/10/19 Decision Time: 12:46
[2019-09-10 12:02] LABS: Anisocytosis Slight; Basophils % (A) 1 %; Eosinophils # (A) 0.2 k/uL (0-0.7); Eosinophils % (A) 4 %; HCT 35.8 % (34.0-46.0); HGB 11.5 gm/dL (11.4-16.0); Lymphocytes # (A) 1.1 k/uL (1.0-4.8); Lymphocytes % (A) 18 %; MCV 87.4 fL (80.0-100.0); Mean Platelet Volume 7.5; Monocytes # (A) 0.3 k/uL (0-1.0); Monocytes % (A) 5 %; Neutrophils # (A) 4.3 k/uL (1.3-7.7); Neutrophils % (A) 72 %; Platelet Count 186 k/uL (150-450); RDW 16.2 % (11.5-15.5)
[2019-09-10 12:03] LABS: Albumin 3.8 g/dL (3.5-5.0); Calcium 9.1 mg/dL (8.4-10.2); Potassium 4.4 mmol/L (3.5-5.1); Total Bilirubin 0.4 mg/dL (0.2-1.3); Total Protein 7.1 g/dL (6.3-8.2)
--- NOTE | 2019-09-10 12:06 | XR ---
EXAMINATION TYPE: XR chest 2V DATE OF EXAM: 09/10/2019 COMPARISON: 04/06/2019 HISTORY: Weakness TECHNIQUE: Frontal and lateral views of the chest are obtained. FINDINGS: There is no focal air space opacity, pleural effusion, or pneumothorax seen. Pulmonary hyp erinflation is seen with flattening of the diaphragms indicative of underlying COPD. Subcentimeter pa tchy density in the right midlung appears new from the prior. The cardiac silhouette size is within n ormal limits. There is prominence of the ascending thoracic aorta, which may be tortuous or aneurysma l. Degenerative changes of the right shoulder with prior rotator cuff repair and sequela of chronic r otator cuff repair. Diffuse osseous demineralization. IMPRESSION: 1. No acute cardiopulmonary process. 2. Radiographic sequela of COPD. 3. Subcentimeter patchy density in the right midlung could represent a subtle pulmonary nodule or con fluence of vasculature. Nonemergent follow-up CT thorax could further evaluate this finding.
[2019-09-10 12:11] LABS: Partial Thromboplastin Time 24.8 sec (22.0-30.0); Prothrombin Time 10.5 sec (9.0-12.0)
--- NOTE | 2019-09-10 12:15 | CT ---
EXAMINATION TYPE: CT brain wo con DATE OF EXAM: 09/10/2019 COMPARISON: 09/10/2019 HISTORY: weakness CT DLP: 1040.4 mGycm Automated exposure control for dose reduction was used. FINDINGS: There is moderate dilation of the ventricular system stable from the previous exam correlate for hydr ocephalus or normal pressure hydrocephalus. Area of low-attenuation the right parietal lobe appears i ncreased on the prior exam likely representing remote ischemia. Recent ischemia in the region is not excluded. No acute hemorrhage. No midline shift. Calvarium intact. Atherosclerotic change of the vasculature. IMPRESSION: CORRELATE FOR HYDROCEPHALUS OR NORMAL PRESSURE HYDROCEPHALUS. NO ACUTE HEMORRHAGE. 2. REMOTE RIGHT PARIETAL INFARCT, HOWEVER, THERE IS NEW INTERMEDIATE DENSITY CORRELATE FOR RECENT IS CHEMIA. CORRELATE WITH MRI CLINICALLY WARRANTED.
[2019-09-10] MEDS ORDERED: ASPIRIN 325 MG TAB PO STA (12:40)
[2019-09-10] MEDS ORDERED: ACETAMINOPHEN TAB 500 MG TAB PO PRN (13:00)
[2019-09-10] MEDS ORDERED: FUROSEMIDE 20 MG TAB PO PRN (13:00)
[2019-09-10 13:02] LABS: Appearance,Urine Clear (Clear); Bacteria,Urine Rare /hpf; Bilirubin,Urine Negative (Negative); Blood,Urine Negative (Negative); Color,Urine Light Yellow; Glucose,Urine (UA) Negative (Negative); Ketones,Urine Negative (Negative); Leukocyte Esterase,Urine Large (Negative); Mucus,Urine Rare /hpf; Nitrite,Urine Negative (Negative); Protein,Urine Negative (Negative); Specific Gravity,Urine 1.015 (1.001-1.035); Squamous Epithelial Cell,Urine 2 /hpf (0-4); Urobilinogen,Urine <2.0 mg/dL (<2.0); WBC,Urine 14 /hpf (0-5)
--- NOTE | 2019-09-10 13:25 | CT ---
EXAMINATION TYPE: CT cervical spine wo con DATE OF EXAM: 09/10/2019 COMPARISON: None HISTORY: 83-year-old female weakness right leg and cervical pain TECHNIQUE: Contiguous axial scanning of the cervical spine without IV contrast. Coronal and sagittal reconstructions performed. CT DLP: 259.9 mGycm Automated exposure control for dose reduction was used. FINDINGS: Mild mucosal thickening right maxillary sinus with leftward nasal septal deviation. Biapical pleural parenchymal scarring with underlying moderate emphysema. No acute fracture of the cervical spine. No craniocervical junction and midbody, predental space widening, or prevertebral soft tissue swellin g. Degenerative changes at the C1 dens articulation. Mild multilevel degenerative disc disease with bulging discs and anterior endplate spondylosis. Scattered mild facet and uncovertebral joint arthropathy. Grade 1 anterolisthesis at C3-C4, C4-C5, C5-C6, and C6-C7 degenerative basis. No bony spinal canal stenosis seen. At C3-C4, there is moderate left neuroforaminal stenosis. Additional variable mild neuroforaminal taye rowing. IMPRESSION: 1. NO ACUTE FRACTURE OF THE CERVICAL SPINE. 2. MILD TO MODERATE SPONDYLOTIC CHANGE WITH DEGENERATIVE GRADE 1 ANTEROLISTHESIS FROM C3 THROUGH C7 L EVELS. 3. PROMINENT DEGENERATIVE CHANGE AT THE C1 DENS ARTICULATION. 4. MODERATE LEFT NEUROFORAMINAL STENOSIS AT C3-C4. ADDITIONAL VARIABLE MILD NEURAL FORAMINAL NARROWIN G THROUGHOUT. 8. COPD. MILD CHRONIC RIGHT MAXILLARY SINUS DISEASE.
--- NOTE | 2019-09-10 13:31 | CT ---
EXAMINATION TYPE: CT lumbar spine wo con DATE OF EXAM: 09/10/2019 1:17 PM COMPARISON: None HISTORY: weakness right leg and cervical pain CT DLP: 1012.5 mGycm Automated exposure control for dose reduction was used. TECHNIQUE: Unenhanced CT of the lumbar spine was performed. Bone and soft tissue window settings are submitted as well as coronal and sagittal reconstructions. FINDINGS: The lumbar spine vertebral bodies maintain normal vertebral body heights. Multilevel degene rative disc disease is seen as there are nearly bridging anterior osteophytes, multilevel facet arthr opathy and multilevel at least broad-based disc bulges. Extensive atherosclerosis is seen of the abdominal aorta and its branches. The heart is enlarged. Min imal subsegmental atelectasis at the lung bases. There are scattered colonic diverticula, particularl y in the sigmoid colon without pericolonic fat stranding. L1-L2: There is a broad-based disc bulge and facet arthropathy resulting in mild bilateral neural for aminal narrowing and mild spinal canal stenosis. Disc herniation is possible and would be better eval uated with MRI. L2-L3: Broad-based disc bulge is seen with facet arthropathy resulting in mild bilateral neural nicholas inal narrowing without spinal canal stenosis. L3-L4: Broad-based disc bulge, ligamentum flavum buckling, and facet arthropathy result in mild spina l canal stenosis and mild bilateral neural foraminal narrowing. L4-L5: Facet arthropathy, ligamentum flavum buckling, and a broad-based disc bulge results in mild to moderate bilateral neural foraminal narrowing and mild spinal canal stenosis. L5-S1: Broad-based disc bulge is seen as well as facet arthropathy. No significant neural foraminal n arrowing or spinal canal stenosis. IMPRESSION: 1. Multilevel moderate degenerative disc disease of the lumbar spine. There is resultant mild spinal canal stenosis at L1-L2 and L3-L5 with variable degrees of neural foraminal narrowing as detailed abo ve. 2. At least broad-based disc bulge at L1-L2 although disc herniation is possible, not well seen on CT . MRI could further evaluate this finding. 3. Extensive atherosclerosis of the abdominal aorta and its branches. Mild cardiomegaly.
[2019-09-10] MEDS: methylPREDNISolone SOD SUCCI 125 MG/2 ML VIAL IV SCH ×3 (13:46→22:47)
--- NOTE | 2019-09-10 14:02 | P.HPIM ---
History of Present Illness H&P Date: 09/10/19 Chief Complaint: Bilateral leg weakness, known left hemiparesis This is an 83-year-old female patient of Dr. Yuan with past medical history of stroke/TIA with known left-sided residual weakness, hypertension, hyperlipidemia, diabetes mellitus type 2 with complications, chronic kidney disease stage III as multiple TIAs in the past, last visit for TIA was seen . CT of the brain showed cerebral atrophy and old right parietal infarct CTA carotid felt to reveal any carotid stenosis.. Patient was last seen by Dr. Yuan, 4 weeks ago without any medication changes, she was at baseline using a walker, for community ambulation, however this time, patient for any other reason, was not able to ambulate. Has difficulty getting in and out of bed, cannot use a walker anymore, and is such wheelchair-bound. Patient has cervical pain, no new weakness in the upper extremity, however both her generalized weakness, left is chronically paretic, patient denies any recent falls, she has significant memory loss since her CVA, has chronic dysphagia secondary to a most recent CVA. , Patient denies any paresthesias, no foot drops, no spasms. No headache, no lightheadedness. Patient denies any dysphagia There is no old MRI performed in our hospital at all. In the emergency room, they have done a CAT scan of the brain, which showed old right parietal infarct, there is possibility of hydrocephalus, with moderate dilation of the ventricular system, the area of low attenuation in the right parietal lobe seems to have increased from previous study, likely representing remote ischemia, recent ischemia in this lesion is not excluded. Urinalysis is 14, WBC, blood sugars are 224, creatinine 0.9 hemoglobin 11.5 Patient was admitted secondary to difficulty in ambulation, with suspected normal pressure hydrocephalus, they might retaining disease cannot be ruled out, has hyperactive DTRs in the right extremities, also cervical myelopathy cannot be ruled out. Computed tomography scan of the cervical spine and lumbar spines requested, consult with neurology, need to obtain MRI of the brain, patient might need to be evaluated for CUBE CUTTER shunt if this is truly NPH Review of Systems Constitutional: Reports as per HPI, Denies anorexia, Denies chills, Denies chronic headaches, Denies chronic pain, Denies daytime sleepiness, Denies fatigue, Denies fever, Denies lethargy, Denies malaise, Denies night sweats, Denies poor appetite, Denies sweats, Denies weakness, Denies weight gain, Denies weight loss Ears, nose, mouth and throat: Reports as per HPI Cardiovascular: Reports as per HPI Respiratory: Reports as per HPI Gastrointestinal: Reports as per HPI Genitourinary: Reports as per HPI Menstruation: Reports as per HPI Musculoskeletal: Reports as per HPI, Reports limitation of motion, Reports neck pain, Denies arm numbness/tingling, Denies atrophy, Denies fractures, Denies frequent falls, Denies gait dysfunction, Denies hot joints, Denies leg numbness/tingling, Denies loss of height, Denies low back pain, Denies morning stiffness, Denies muscle cramps, Denies muscle weakness, Denies myalgias, Denies neck stiffness, Denies prior amputations, Denies redness of joints, Denies shooting arm pain, Denies shooting leg pain Integumentary: Reports as per HPI Neurological: Reports as per HPI, Reports balance difficulties, Reports gait dysfunction, Reports motor disturbance, Reports paralysis, Reports weakness Psychiatric: Reports as per HPI Endocrine: Reports as per HPI Hematologic/Lymphatic: Reports as per HPI Allergic/Immunologic: Reports as per HPI Past Medical History Past Medical History: CVA/TIA, Diabetes Mellitus, GERD/Reflux, Hyperlipidemia, Hypertension, Liver Disease Additional Past Medical History / Comment(s): CVA with L sided weakness June,, multiple TIAs per son with last one possibly 07/26/18, NIDDM type II, gastric ulcer years ago, jaundiced as a teen (water exposure). History of Any Multi-Drug Resistant Organisms: None Reported Past Surgical History: Appendectomy, Hysterectomy, Joint Replacement, Orthopedic Surgery Additional Past Surgical History / Comment(s): R shoulder open surgery, R total knee replacement, R total hip replacement, bilateral wrist carpal tunnel releases, EGD. kidney surgery Past Anesthesia/Blood Transfusion Reactions: No Reported Reaction Past Psychological History: No Psychological Hx Reported Smoking Status: Former smoker Past Alcohol Use History: None Reported Past Drug Use History: None Reported - Past Family History Father Family Medical History: Myocardial Infarction ([place]) Additional Family Medical History / Comment(s): father from issues associated with alcoholism Mother Family Medical History: CVA/TIA, Myocardial Infarction ([place]) Additional Family Medical History / Comment(s): Mother at age 90 from myocardial infarction. Sister(s) Family Medical History: Diabetes Mellitus Daughter(s) Additional Family Medical History / Comment(s): Patient states she has 8 children with no major medical problems. Medications and Allergies Home Medications Medication Instructions Recorded Confirmed Type Losartan Potassium 100 mg PO DAILY 07/25/18 09/10/19 History Metoprolol Tartrate [Lopressor] 50 mg PO BID 07/25/18 09/10/19 History Omeprazole 20 mg PO DAILY 07/25/18 09/10/19 History amLODIPine [Norvasc] 10 mg PO DAILY 02/27/19 09/10/19 History Furosemide [Lasix] 20 mg PO DAILY PRN 04/06/19 09/10/19 History ALPRAZolam [Xanax] 0.25 mg PO HS PRN #3 tab 04/10/19 09/10/19 Rx Acetaminophen [Tylenol] 500 mg PO Q4-6H PRN 09/10/19 09/10/19 History Aspirin EC [Ecotrin Low Dose] 81 mg PO DAILY 09/10/19 09/10/19 History Atorvastatin [Lipitor] 40 mg PO DAILY 09/10/19 09/10/19 History Doxylamine Succinate [Unisom] 25 mg PO HS 09/10/19 09/10/19 History Isosorbide Mononitrate ER [Imdur] 30 mg PO DAILY 09/10/19 09/10/19 History Pioglitazone [Actos] 30 mg PO DAILY 09/10/19 09/10/19 History Sertraline [Zoloft] 50 mg PO HS 09/10/19 09/10/19 History Allergies Allergy/AdvReac Type Severity Reaction Status Date / Time codeine Allergy Unknown Verified 09/10/19 12:22 Penicillins Allergy Rash/Hives Verified 09/10/19 12:22 Physical Exam Vitals: Vital Signs Temp Pulse Resp BP Pulse Ox 09/10/19 11:03 98.1 F 74 18 144/62 98 Intake and Output 09/09/19 09/10/19 09/10/19 22:59 06:59 14:59 Other: Weight 63.957 kg - Constitutional General appearance: cooperative, no acute distress - EENT Eyes: anicteric sclerae, dentition normal, normal appearance ENT: NA/AT, normal oropharynx - Neck Neck: normal ROM - Respiratory Respiratory: bilateral: CTA, negative: diminished, dullness, rales - Cardiovascular Heart sounds: normal: S1, S2 Results CBC & Chem 7: 09/10/19 11:33 09/10/19 11:33 Labs: Abnormal Lab Results - Last 24 Hours (Table) 09/10/19 09/10/19 09/10/19 Range/Units 11:33 11:33 12:20 RDW 16.2 H (11.5-15.5) % BUN 32 H (7-17) mg/dL Glucose 224 H (74-99) mg/dL Ur Leukocyte Esterase Large H (Negative) Urine WBC 14 H (0-5) /hpf Urine Bacteria Rare H (None) /hpf Urine Mucus Rare H (None) /hpf Laboratory Results WBC 6.0 k/uL (3.8-10.6) 09/10/19 11:33 RBC 4.10 m/uL (3.80-5.40) 09/10/19 11:33 Hgb 11.5 gm/dL (11.4-16.0) 09/10/19 11:33 Hct 35.8 % (34.0-46.0) 09/10/19 11:33 MCV 87.4 fL (80.0-100.0) 09/10/19 11:33 MCH 28.0 pg (25.0-35.0) 09/10/19 11:33 MCHC 32.0 g/dL (31.0-37.0) 09/10/19 11:33 RDW 16.2 % (11.5-15.5) H 09/10/19 11:33 Plt Count 186 k/uL (150-450) 09/10/19 11:33 Neutrophils % 72 % 09/10/19 11:33 Lymphocytes % 18 % 09/10/19 11:33 Monocytes % 5 % 09/10/19 11:33 Eosinophils % 4 % 09/10/19 11:33 Basophils % 1 % 09/10/19 11:33 Neutrophils # 4.3 k/uL (1.3-7.7) 09/10/19 11:33 Lymphocytes # 1.1 k/uL (1.0-4.8) 09/10/19 11:33 Monocytes # 0.3 k/uL (0-1.0) 09/10/19 11:33 Eosinophils # 0.2 k/uL (0-0.7) 09/10/19 11:33 Basophils # 0.0 k/uL (0-0.2) 09/10/19 11:33 Anisocytosis Slight 09/10/19 11:33 PT 10.5 sec (9.0-12.0) 09/10/19 11:33 INR 1.0 (<1.2) 09/10/19 11:33 APTT 24.8 sec (22.0-30.0) 09/10/19 11:33 Sodium 140 mmol/L (137-145) 09/10/19 11:33 Potassium 4.4 mmol/L (3.5-5.1) 09/10/19 11:33 Chloride 105 mmol/L (98-107) 09/10/19 11:33 Carbon Dioxide 27 mmol/L (22-30) 09/10/19 11:33 Anion Gap 8 mmol/L 09/10/19 11:33 BUN 32 mg/dL (7-17) H 09/10/19 11:33 Creatinine 0.92 mg/dL (0.52-1.04) 09/10/19 11:33 Est GFR (CKD-EPI)AfAm 67 (>60 ml/min/1.73 sqM) 09/10/19 11:33 Est GFR (CKD-EPI)NonAf 58 (>60 ml/min/1.73 sqM) 09/10/19 11:33 Glucose 224 mg/dL (74-99) H 09/10/19 11:33 Plasma Lactic Acid Narayan 1.1 mmol/L (0.7-2.0) 09/10/19 11:33 Calcium 9.1 mg/dL (8.4-10.2) 09/10/19 11:33 Total Bilirubin 0.4 mg/dL (0.2-1.3) 09/10/19 11:33 AST 23 U/L (14-36) 09/10/19 11:33 ALT 14 U/L (4-34) 09/10/19 11:33 Alkaline Phosphatase 90 U/L (38-126) 09/10/19 11:33 Creatine Kinase 34 U/L (30-135) 09/10/19 11:33 Total Protein 7.1 g/dL (6.3-8.2) 09/10/19 11:33 Albumin 3.8 g/dL (3.5-5.0) 09/10/19 11:33 Urine Color Light Yellow 09/10/19 12:20 Urine Appearance Clear (Clear) 09/10/19 12:20 Urine pH 6.0 (5.0-8.0) 09/10/19 12:20 Ur Specific [place] 1.015 (1.001-1.035) 09/10/19 12:20 Urine Protein Negative (Negative) 09/10/19 12:20 Urine Glucose (UA) Negative (Negative) 09/10/19 12:20 Urine Ketones Negative (Negative) 09/10/19 12:20 Urine Blood Negative (Negative) 09/10/19 12:20 Urine Nitrite Negative (Negative) 09/10/19 12:20 Urine Bilirubin Negative (Negative) 09/10/19 12:20 Urine Urobilinogen <2.0 mg/dL (<2.0) 09/10/19 12:20 Ur Leukocyte Esterase Large (Negative) H 09/10/19 12:20 Urine WBC 14 /hpf (0-5) H 09/10/19 12:20 Ur Squamous Epith Cells 2 /hpf (0-4) 09/10/19 12:20 Urine Bacteria Rare /hpf (None) H 09/10/19 12:20 Urine Mucus Rare /hpf (None) H 09/10/19 12:20 Thrombosis Risk Factor Assmnt - DVT/VTE Prophylaxis DVT/VTE Prophylaxis: Pharmacologic Prophylaxis ordered, Mechanical Prophylaxis ordered - Choose All That Apply Each Risk Factor Represents 2 Points: Patient confined to bed Each Risk Factor Represents 3 Points: Age 75 years or older Thrombosis Risk Factor Assessment Total Risk Factor Score: 5 Thrombosis Risk Factor Assessment Level: High Risk Assessment and Plan Plan: 1. Inability to ambulate which is acute, bilateral lower extremity weakness, normal pressure hydrocephalus is suspected, other differential diagnosis include cervical myelopathy, and lumbar disc spinal stenosis, however she has an abnormal CAT scan, with possibly progression of the right parietal ischemic infarct. Aspirin 325 mg daily Patient would have an MRI of the brain, with and without contrast, along with consultation to neurology, PT OT. Solid Medrol 60 mg every 6 hours for cervical stenosis cervical myelopathy, might need higher strength this adjustment 2. Hyperactive deep tendon reflexes, TSH to be done, MRI is already ordered to rule out demyelination, check B12 3. Old parietal infarct on the right, with the Cipro left hemiparesis 4 Hypertension. Continue amlodipine 10 mg daily, losartan 100 mg daily, Lopressor 50 mg twice daily. 5. Hyperlipidemia. Continue Lipitor 20 mg daily. 6. Diabetes mellitus type 2 with hyperglycemia and complications. Continue Actos 15 mg daily and NovoLog scale before meals and at bedtime. 7. Chronic kidney disease stage II Avoid nephrotoxic agents. 9 Possible urinary tract infection. Rocephin 1 g daily. Await urine culture report. 10 Gastroesophageal reflux disease. Continue omeprazole 20 mg daily. 12 Insomnia. Continue Xanax or 0.25 mg at bedtime as needed. 13 DVT prophylaxis. Heparin subcu. Patient will be admitted to the hospital for a minimum of 2 night stay. Discharge plan: Most likely subacute rehab. PT, OT, speech therapy ordered..
[2019-09-10 17:04] LABS: Glucose,Whole Blood 232 mg/dL (75-99)
[2019-09-10] MEDS: INSULIN ASPART (NovoLOG) 100 UNIT/ML VIAL SQ SCH ×2 (17:44→20:58)
[2019-09-10 20:24] LABS: Glucose,Whole Blood 318 mg/dL (75-99)
[2019-09-10] MEDS: METOPROLOL TARTRATE 50 MG TAB PO SCH (20:57)
[2019-09-10] MEDS: ALPRAZolam 0.25 MG TAB PO PRN (20:58)
[2019-09-10] MEDS: SERTRALINE 50 MG TAB PO SCH (20:58)
[2019-09-10] MEDS: NON FORMULARY DRUG (Doxylamine Succinate [Unisom] 25 MG) PO SCH (20:59)
--- NOTE | 2019-09-11 04:49 | MR ---
EXAMINATION TYPE: MR brain wo con DATE OF EXAM: 09/10/2019 COMPARISON: CT scan 09/10/2019 HISTORY: Weakness, abnormal CT, MS protocol Multiplanar multiecho imaging of the brain was performed without contrast. There is enlargement of the ventricles. There is no mass effect nor midline shift. There is no sign o f intracranial hemorrhage. There is increased sánchez-white matter signal in the right posterior tempora l lobe consistent with an old infarct. There is diffuse cerebral cortical atrophy. There is mild muco richard thickening right maxillary sinus. There is thinning of the corpus callosum. The brainstem is inta ct. There is linear increased signal adjacent to the lateral ventricles in the white matter consisten t with pulsation. IMPRESSION: There is a 7 x 3.5 cm area of old infarct right posterior temporal lobe. Mild hydrocephalus. No evide nce of obstruction. Cerebral atrophy. No change compared to CT scan of 09/10/2019.
[2019-09-11 06:08] LABS: Glucose,Whole Blood 173 mg/dL (75-99)
[2019-09-11] MEDS: INSULIN ASPART (NovoLOG) 100 UNIT/ML VIAL SQ SCH ×4 (06:57→20:24)
[2019-09-11] MEDS: methylPREDNISolone SOD SUCCI 125 MG/2 ML VIAL IV SCH ×4 (06:57→23:30)
[2019-09-11] MEDS: PANTOPRAZOLE 40 MG TABLET PO SCH (06:57)
[2019-09-11] MEDS: amLODIPine 10 MG TAB PO SCH (08:55)
[2019-09-11] MEDS: ASPIRIN 81 MG PO SCH (08:55)
[2019-09-11] MEDS: ATORVASTATIN 40 MG TAB PO SCH (08:55)
[2019-09-11] MEDS: METOPROLOL TARTRATE 50 MG TAB PO SCH ×2 (08:56→20:24)
[2019-09-11] MEDS: ISOSORBIDE MONONITRATE ER 30 MG TAB.ER.24H PO SCH (08:56)
[2019-09-11] MEDS: LOSARTAN 50 MG TAB PO SCH (08:56)
[2019-09-11] MEDS: PIOGLITAZONE 30 MG TAB PO SCH (08:58)
[2019-09-11] MEDS ORDERED: ASPIRIN 325 MG TAB PO SCH (09:00)
--- NOTE | 2019-09-11 09:20 | P.CNOR ---
History of Present Illness - [facility] Consult date: 09/11/19 Requesting physician: Vane Ching Consult reason: other (Left upper extremity and lower extremity weakness with in ability to ambulate) History of present illness: Patient is a very pleasant 83-year-old female who is seen and examined at bedside for further evaluation in regards to her increased difficulty with ambulation and possible cervical myelopathy. Patient does have a significant medical history which includes multiple strokes and TIAs. Patient has had chronic left-sided weakness following her multiple episodes. Patient had been able to increase ambulation and was able to ambulate with the assistance of a walker. Over the past couple weeks she states she has noticed increased left- sided weakness of the upper and lower extremity and has been unable to ambulate since that time. She states her left side just will not work. She denies any injuries. She states her symptoms feel the same in regards to her left-sided weakness but with worsening weakness. She denies any specific right-sided weakness of the upper extremity or lower extremity. She is not currently spearing sitting any cervical pain. She denies any upper extremity or lower extremity radiculopathy bilaterally. Her past medical history also includes hypertension, hyperlipidemia, type 2 diabetes with complications, and chronic kidney disease stage III. Patient did have a CT of the brain which showed evidence of previous right parietal infarct that with correlation for possible hydrocephalus or normal pressure hydrocephalus. Patient is being seen in exam by medicine. A brain MRI has been ordered him performed, and interpreted which showed evidence of old right temporal lobe infarct and mild hydrocephalus. Past Medical History Past Medical History: CVA/TIA, Diabetes Mellitus, GERD/Reflux, Hyperlipidemia, Hypertension, Liver Disease Additional Past Medical History / Comment(s): 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 History of Any Multi-Drug Resistant Organisms: None Reported Past Surgical History: Appendectomy, Hysterectomy, Joint Replacement, Orthopedic Surgery Additional Past Surgical History / Comment(s): R shoulder open surgery, R total knee replacement, R total hip replacement, bilateral wrist carpal tunnel releases, colonoscopy Past Anesthesia/Blood Transfusion Reactions: No Reported Reaction Smoking Status: Former smoker - Past Family History Father Family Medical History: Myocardial Infarction ([place]) Additional Family Medical History / Comment(s): father from issues associated with alcoholism Mother Family Medical History: CVA/TIA, Myocardial Infarction ([place]) Additional Family Medical History / Comment(s): Mother at age 90 from myocardial infarction. Sister(s) Family Medical History: Diabetes Mellitus Daughter(s) Additional Family Medical History / Comment(s): Patient states she has 8 c hildren with no major medical problems. Medications and Allergies Home Medications Medication Instructions Recorded Confirmed Type Losartan Potassium 100 mg PO DAILY 07/25/18 09/10/19 History Metoprolol Tartrate [Lopressor] 50 mg PO BID 07/25/18 09/10/19 History Omeprazole 20 mg PO DAILY 07/25/18 09/10/19 History amLODIPine [Norvasc] 10 mg PO DAILY 02/27/19 09/10/19 History Furosemide [Lasix] 20 mg PO DAILY PRN 04/06/19 09/10/19 History ALPRAZolam [Xanax] 0.25 mg PO HS PRN #3 tab 04/10/19 09/10/19 Rx Acetaminophen [Tylenol] 500 mg PO Q4-6H PRN 09/10/19 09/10/19 History Aspirin EC [Ecotrin Low Dose] 81 mg PO DAILY 09/10/19 09/10/19 History Atorvastatin [Lipitor] 40 mg PO DAILY 09/10/19 09/10/19 History Doxylamine Succinate [Unisom] 25 mg PO HS 09/10/19 09/10/19 History Isosorbide Mononitrate ER [Imdur] 30 mg PO DAILY 09/10/19 09/10/19 History Pioglitazone [Actos] 30 mg PO DAILY 09/10/19 09/10/19 History Sertraline [Zoloft] 50 mg PO HS 09/10/19 09/10/19 History Allergies Allergy/AdvReac Type Severity Reaction Status Date / Time codeine Allergy Unknown Verified 09/10/19 12:22 Penicillins Allergy Rash/Hives Verified 09/10/19 12:22 Physical Examination Physical exam: Patient is awake, alert, and oriented 3 Vital signs stable Good chest excursion with deep inspiration and expiration Examination of the cervical spine reveals skin is intact with no abrasions, lacerations, or bruises; no erythema, purulence or signs of infection Full range of motion of the cervical spine with adequate flexion, extension, and bilateral rotation Soakers Supervisor strength, thumb strength, interosseous strength, biceps strength, triceps strength, and shoulder strength positive sustained on the right Significant difficulty with active range of motion of the left upper extremity Patient is unable to perform significant active range of motion with the biceps, triceps, and deltoids Patient is able to perform some vender and interossei on the left but significantly weak as compared to the right Left upper extremity positive Rosalba sign and hyperreflexia No evidence of hyperreflexia or positive Rosalba sign with the right upper extremity Patient is able to lift the right lower extremity off the bed independently without significant difficulty Patient is able to lift the left lower extremity a little bit off the bed but has difficulty while doing so Evidence of a well-healed incision over the left anterior knee from previous total knee arthroplasty Evidence of approximately 5 beats of clonus on the right and 3 beats of clonus on the left No evidence of lower extremity hyperreflexia Dorsiflexion, plantarflexion, and extensor hallucis longus positive sustained bilaterally Left lower extremity strength significantly weaker throughout range of motion as compared to the right Negative Lasegue's test bilaterally Right patellar reflex 3+/4; left patellar reflex 0/4 No signs or symptoms of DVT; no calf pain No pain with internal and external rotation of the hips bilaterally Neurovascularly intact Results Pertinent studies: MRI of the brain taken on 09/10/2019: 7 cm x 2.5 cm area of old infarct at the right posterior temporal lobe; mild hydrocephalus; no evidence of obstruction; cerebral atrophy CT of the brain taken on 09/10/2019: Correlate for hydrocephalus or normal pressure hydrocephalus; no evidence of acute hemorrhage; remote right parietal infarct however there is new intermediate density correlate for recent ischemia; correlate with MRI as clinically warranted CT of the cervical spine taken on 09/10/2019: C3-4, C4-5, and C5-6 degenerative disc disease with grade 1 spondylolisthesis and anterior osteophytic spurring; C6-7 degenerative disc disease and anterior osteophytic spurring; probable degenerative change at the C1 and dens articulation; moderate left neural foraminal narrowing C3-4; no acute fracture of the cervical spine; no bony spinal canal stenosis CT of the lumbar spine taken on 09/10/2019: Overall alignment is adequate to maintain; no evidence of acute body compression fracture; L1-2 mild spinal canal stenosis with neural foraminal narrowing due to broad-based disc bulge and facet arthropathy; L2-3 broad-based disc bulge and facet arthropathy with mild neuroforaminal narrowing; L3 4 broad-based disc bulge, ligamentum flavum buckling, and facet arthropathy resulting in mild spinal canal stenosis and mild bilateral neural foraminal narrowing; L4-5 broad-based disc bulge, facet arthropathy, ligamentum flavum buckling resulting in [id number] bilateral neural foraminal narrowing and mild spinal canal stenosis; L5-S1 broad-based disc bulge and facet arthropathy - Labs Labs: Abnormal Lab Results - Last 24 Hours (Table) 09/10/19 09/10/19 09/10/19 Range/Units 11:33 11:33 12:20 RDW 16.2 H (11.5-15.5) % BUN 32 H (7-17) mg/dL Glucose 224 H (74-99) mg/dL POC Glucose (mg/dL) (75-99) mg/dL LDL Cholesterol, Calc (0-99) mg/dL Ur Leukocyte Esterase Large H (Negative) Urine WBC 14 H (0-5) /hpf Urine Bacteria Rare H (None) /hpf Urine Mucus Rare H (None) /hpf 09/10/19 09/10/19 09/11/19 Range/Units 17:02 20:23 06:03 RDW (11.5-15.5) % BUN (7-17) mg/dL Glucose (74-99) mg/dL POC Glucose (mg/dL) 232 H 318 H (75-99) mg/dL LDL Cholesterol, Calc 110 H (0-99) mg/dL Ur Leukocyte Esterase (Negative) Urine WBC (0-5) /hpf Urine Bacteria (None) /hpf Urine Mucus (None) /hpf 09/11/19 Range/Units 06:06 RDW (11.5-15.5) % BUN (7-17) mg/dL Glucose (74-99) mg/dL POC Glucose (mg/dL) 173 H (75-99) mg/dL LDL Cholesterol, Calc (0-99) mg/dL Ur Leukocyte Esterase (Negative) Urine WBC (0-5) /hpf Urine Bacteria (None) /hpf Urine Mucus (None) /hpf Microbiology - Last 24 Hours (Table) 09/10/19 12:20 Urine Culture - Preliminary Urine,Voided H & H 09/10/19 Range/Units 11:33 Hgb 11.5 (11.4-16.0) gm/dL Hct 35.8 (34.0-46.0) % Coagulation 09/10/19 Range/Units 11:33 INR 1.0 (<1.2) Result Diagrams: 09/10/19 11:33 09/10/19 11:33 Assessment and Plan Assessment: Assessment: Acute on chronic worsening left-sided upper extremity and lower extremity weakness History of stroke and TIAs Previous right parietal/temporal lobe infarct Mild hydrocephalus on brain MRI C3-4, C4-5, C5-6 and C6-7 Cervical degenerative disc disease C3-4, C4-5, and C5-6 Cervical spondylolisthesis Multilevel lumbar mild spinal canal stenosis Lumbar degenerative disc disease Lumbar facet arthropathy Hypertension Hyperlipidemia Type 2 diabetes with complications Chronic kidney disease stage III (1) Weakness of left upper extremity Current Visit: Yes Status: Acute Code(s): R29.898 - OTH SYMPTOMS AND SIGNS INVOLVING THE MUSCULOSKELETAL SYSTEM SNOMED Code(s): 861142122 (2) Weakness of left lower extremity Current Visit: Yes Status: Acute Code(s): R29.898 - OTH SYMPTOMS AND SIGNS INVOLVING THE MUSCULOSKELETAL SYSTEM SNOMED Code(s): 009415295 (3) Degenerative disc disease, cervical Current Visit: Yes Status: Acute Code(s): M50.30 - OTHER CERVICAL DISC DEGENERATION, UNSP CERVICAL REGION SNOMED Code(s): 49771037 (4) Spondylolisthesis of cervical region Current Visit: Yes Status: Acute Code(s): M43.12 - SPONDYLOLISTHESIS, CERVICAL REGION SNOMED Code(s): 474986233 (5) Lumbar degenerative disc disease Current Visit: Yes Status: Acute Code(s): M51.36 - OTHER INTERVERTEBRAL DISC DEGENERATION, LUMBAR REGION SNOMED Code(s): 97482739 (6) Lumbar facet arthropathy Current Visit: Yes Status: Acute Code(s): M47.816 - SPONDYLOSIS W/O MYELOPATHY OR RADICULOPATHY, LUMBAR REGION SNOMED Code(s): 570913270 (7) Lumbar spinal stenosis Current Visit: Yes Status: Acute Code(s): M48.061 - SPINAL STENOSIS, LUMBAR REGION WITHOUT NEUROGENIC JOSE SNOMED Code(s): 04819062 (8) History of stroke Current Visit: Yes Status: Acute Code(s): Z86.73 - PRSNL HX OF TIA (TIA), AND CEREB INFRC W/O RESID DEFICITS SNOMED Code(s): 476084113 (9) History of TIA (transient ischemic attack) Current Visit: Yes Status: Acute Code(s): Z86.73 - PRSNL HX OF TIA (TIA), AND CEREB INFRC W/O RESID DEFICITS SNOMED Code(s): 060680686 (10) Hyperreflexia Current Visit: Yes Status: Acute Code(s): R29.2 - ABNORMAL REFLEX SNOMED Code(s): 61235149 (11) Hypertension Current Visit: Yes Status: Acute Code(s): I10 - ESSENTIAL (PRIMARY) HYPERTENSION SNOMED Code(s): 27618739 (12) Hyperlipidemia Current Visit: Yes Status: Acute Code(s): E78.5 - HYPERLIPIDEMIA, UNSPECIFIED SNOMED Code(s): 15311949 (13) Type 2 diabetes mellitus Current Visit: Yes Status: Acute Code(s): E11.9 - TYPE 2 DIABETES MELLITUS WITHOUT COMPLICATIONS SNOMED Code(s): 58518313 (14) Chronic kidney disease (CKD) Current Visit: Yes Status: Acute Code(s): N18.9 - CHRONIC KIDNEY DISEASE, UNSPECIFIED SNOMED Code(s): 255662628 (15) History of total knee arthroplasty Current Visit: Yes Status: Acute Code(s): Z96.659 - PRESENCE OF UNSPECIFIED ARTIFICIAL KNEE JOINT SNOMED Code(s): 4135528441003 (16) History of stroke with current residual effects Current Visit: No Status: Acute Code(s): I69.30 - UNSPECIFIED SEQUELAE OF CEREBRAL INFARCTION SNOMED Code(s): 4243194632448 Plan: Plan: 1. Patient will be discussed in detail with Dr. Ermias Orellana. After reviewing of imaging, physical examination of the patient, and further discussion with the patient, we will current plan to continue with conservative treatment in regards to her cervical spine and lumbar spine. She does have some degenerative changes on her cervical CT and lumbar CT without obvious stenosis at her cervical spine. Patient is not currently complaining of any upper extremity or lower extremity radiculopathy bilaterally. She is having worsening chronic left upper extremity and lower extremity weakness. She is not complaining of any right upper extremity or lower extremity weakness. She also has evidence of hyperreflexia and positive Rosalba sign on the left upper extremity. She does not have positive Rosalba sign or hyperreflexia on the right upper extremity. She does have evidence of positive beats of clonus in the bilateral lower extremities. She does have some hyperreflexia at the right patella. She does not have evidence of hyperreflexia at the left patella but is also status post total knee arthroplasty. She denies any recent injuries. Based on her symptoms and history, it seems her symptoms may be more relation to her brain rather than her cervical spine or lumbar spine. She does have some neurologic change including hyperreflexia, positive beats of clonus, and positive Rosalba sign with testing which also could be related to her previous stroke and TIAs. Her symptoms continue to be strictly left-sided, which has been chronic for her but have been worsening more recently. This does not correlate well in regards to her cervical spine or lumbar spine. We would recommend further testing and evaluation in regards to her brain. If no other causes for her symptoms are evident, we may plan to obtain an MRI of the cervical spine for further evaluation. 2. Patient will continue to be seen and examined by medicine for her significant medical diagnoses Time with Patient: Greater than 30 (Including obtaining history, physical ex amination, reviewing of imaging, and dictation.)
--- NOTE | 2019-09-11 11:42 | P.CNNES ---
History of Present Illness Consult date: 09/11/19 Requesting physician: Gio Urena Reason for Consult: CVA, difficulty ambulation History of Present Illness: Patient is a 83-year-old female, who had history of right parietal CVA in May 2018, for which she was admitted to [facility] in the past. Patient has residual left hemiparesis resulting from the stroke, with involvement of the left arm > left leg. Patient ambulates with cane or a walker. She lives with her son. Patient is currently on aspirin 81 mg daily, and Lipitor 40 mg. Patient's stroke risk factors includes hypertension, diabetes and former tobacco use. Patient was brought to the hospital, as her son felt that patient was having right facial droop and trouble walking more than usual. Patient underwent computed tomography scan of the head, which revealed possibility of hydrocephalus or normal pressure hydrocephalus. No acute hemorrhage. Remote right parietal infarct, however there is new intermediate density correlate for recent ischemia. May consider MRI. Patient underwent MRI of the brain without contrast, which revealed 7 x 3.5 cm area of old infarct right posterior temporal lobe. Mild hydrocephalus. No evidence of obstruction. Cerebral atrophy. Connie ent also was admitted to [facility] on 04/06/2019 for possible TIA in which she had a CTA of head and neck, which was negative for any significant stenosis occlusion or aneurysm. Patient had a 2-D echo on September 2018, which revealed EF 55-60%. Mild aortic valve sclerosis. Mild aortic regurgitation. Patient had a transesophageal echocardiogram on 04/07/2019 which revealed normal left-ventricular size and systolic function. Normal appearance of the left atrial appendage. Mild mitral and tricuspid regurgitation. 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 No evidence shunting by contrast bubble study. Patient's last hemoglobin A1c 5.9 on 10/02/2018. Her total cholesterol is 178, LDL 110, HDL 53 and triglycerides 73 on 09/11/2019. Vitamin B12 338 TSH normal. UA showed large amount of leukocyte Estrace, 14 WBC, rare bacteria. Patient also underwent CT of the cervical spine, which revealed mild to moderate spondylotic changes with degenerative grade 1 anterior listhesis from C3 through C7 levels. Prominent degenerative changes at the C1 dense articulation. Mild chronic right maxillary sinus disease. CT of the lumbar spine showed multilevel moderate degenerative disc disease of the lumbar spine. There is resultant mild spinal canal stenosis at L1-2 and L3 5 with variable degrees of neural foraminal narrowing. At least broad based disc bulge at L12 although disc herniation is possible, not well seen in the CT. MRI could further evaluate this finding. Patient herself states that she did not feel that there was any stroke symptoms, only her son observed it. Review of Systems Difficulty with ambulation, which is chronic. Denies hoarseness or for dysphagia diplopia nausea vomiting diarrhea abdominal pain. Patient has left hemiparesis. Patient denies any memory concerns. She agrees to having urgency and frequency of urination and sometimes difficulty with holding the urine. All other review of systems unremarkable. Past Medical History Past Medical History: CVA/TIA, Diabetes Mellitus, GERD/Reflux, Hyperlipidemia, Hypertension, Liver Disease Additional Past Medical History / Comment(s): 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 History of Any Multi-Drug Resistant Organisms: None Reported Past Surgical History: Appendectomy, Hysterectomy, Joint Replacement, Orthopedic Surgery Additional Past Surgical History / Comment(s): R shoulder open surgery, R total knee replacement, R total hip replacement, bilateral wrist carpal tunnel releases, colonoscopy Past Anesthesia/Blood Transfusion Reactions: No Reported Reaction Smoking Status: Former smoker - Past Family History Father Family Medical History: Myocardial Infarction ([place]) Additional Family Medical History / Comment(s): father from issues associated with alcoholism Mother Family Medical History: CVA/TIA, Myocardial Infarction ([place]) Additional Family Medical History / Comment(s): Mother at age 90 from myocardial infarction. Sister(s) Family Medical History: Diabetes Mellitus Daughter(s) Additional Family Medical History / Comment(s): Patient states she has 8 child olive with no major medical problems. Medications and Allergies Home Medications Medication Instructions Recorded Confirmed Type Losartan Potassium 100 mg PO DAILY 07/25/18 09/10/19 History Metoprolol Tartrate [Lopressor] 50 mg PO BID 07/25/18 09/10/19 History Omeprazole 20 mg PO DAILY 07/25/18 09/10/19 History amLODIPine [Norvasc] 10 mg PO DAILY 02/27/19 09/10/19 History Furosemide [Lasix] 20 mg PO DAILY PRN 04/06/19 09/10/19 History ALPRAZolam [Xanax] 0.25 mg PO HS PRN #3 tab 04/10/19 09/10/19 Rx Acetaminophen [Tylenol] 500 mg PO Q4-6H PRN 09/10/19 09/10/19 History Aspirin EC [Ecotrin Low Dose] 81 mg PO DAILY 09/10/19 09/10/19 History Atorvastatin [Lipitor] 40 mg PO DAILY 09/10/19 09/10/19 History Doxylamine Succinate [Unisom] 25 mg PO HS 09/10/19 09/10/19 History Isosorbide Mononitrate ER [Imdur] 30 mg PO DAILY 09/10/19 09/10/19 History Pioglitazone [Actos] 30 mg PO DAILY 09/10/19 09/10/19 History Sertraline [Zoloft] 50 mg PO HS 09/10/19 09/10/19 History Allergies Allergy/AdvReac Type Severity Reaction Status Date / Time codeine Allergy Unknown Verified 09/10/19 12:22 Penicillins Allergy Rash/Hives Verified 09/10/19 12:22 Physical Examination - Vital Signs Vital Signs: Vital Signs Temp Pulse Pulse Resp BP BP Pulse Ox 09/11/19 07:42 98.0 F 106 H 106 H 16 184/78 184/78 96 09/11/19 04:00 97.8 F 79 18 151/69 98 09/10/19 23:17 97.4 F L 90 17 155/88 95 09/10/19 20:00 97.7 F 94 18 165/95 96 09/10/19 15:42 98.4 F 84 84 16 161/63 161/63 96 09/10/19 15:15 98.1 F 75 18 132/62 98 09/10/19 14:42 98.0 F 72 18 132/64 98 09/10/19 13:50 98.1 F 75 18 137/59 98 09/10/19 13:42 98.0 F 70 18 137/59 97 Intake and Output 09/10/19 09/11/19 09/11/19 22:59 06:59 14:59 Intake Total 540 360 Balance 540 360 Intake: Oral 540 360 Other: Voiding Method Toilet Bedside Commode Bedside Commode Diaper Diaper Incontinent Incontinent # Voids 2 Weight 62.7 kg On examination patient is an elderly female, in no distress. Patient is alert awake fairly well oriented. Speech and language functions are normal. 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 It is slightly more prominent in the left upper visual field as compared to the left lower. There is sometimes left visual field neglect as compared to field cut. Patient has left facial asymmetry. Tongue protrudes the midline. Palatal elevation and sensation normal. On muscle strength testing patient has normal strength in the right arm and right leg. On the left side her deltoid is 2, biceps 4 triceps 4+ supervisor evaporator 4-. Patient's ankle dorsiflexion is normal whereas hip flexion is quite stiff on the left. Patient walks with a left hemiparetic gait, uses a walker. She does have some magnetic gait as well. Reflexes are brisk on the left and patient has Babinski on the left but normal on turn downgoing on the right. Patient has very slow finger tapping on the left. Tone is increased in the left. There is no obvious bruit, S1 and S2 audible. Peripheral pulses present. Results - Laboratory Findings CBC and BMP: 09/10/19 11:33 09/10/19 11:33 Abnormal Lab Findings: Abnormal Labs 09/10/19 09/10/19 09/10/19 11:33 11:33 12:20 RDW 16.2 H BUN 32 H Glucose 224 H POC Glucose (mg/dL) LDL Cholesterol, Calc Ur Leukocyte Esterase Large H Urine WBC 14 H Urine Bacteria Rare H Urine Mucus Rare H 09/10/19 09/10/19 09/11/19 17:02 20:23 06:03 RDW BUN Glucose POC Glucose (mg/dL) 232 H 318 H LDL Cholesterol, Calc 110 H Ur Leukocyte Esterase Urine WBC Urine Bacteria Urine Mucus 09/11/19 06:06 RDW BUN Glucose POC Glucose (mg/dL) 173 H LDL Cholesterol, Calc Ur Leukocyte Esterase Urine WBC Urine Bacteria Urine Mucus Assessment and Plan Assessment: * 83-year-old female admitted with questionable facial droop, and difficulty walking. Doubt CVA or TIA. Patient's vascular risk factors are well co ntrolled. Recommend continue aspirin and statins. * Possible normal pressure hydrocephalus noted on computed tomography scan of head and MRI. * UTI, on Rocephin * Hypertension * Diabetes Plan: * Patient will be continued on aspirin and Lipitor. * Patient is currently on Rocephin for possible UTI. * Patient's CT and MRI of the brain revealed possibility of hydrocephalus. I discussed with patient about large volume spinal tap to see if it helps with her gait imbalance, that would suggest NPH. Patient declined lumbar puncture. She may benefit from neurosurgical consultation as an outpatient. I wanted to speak to patient's son, but patient states that she will discuss with her son and let us know if she has any further questions. * Patient also to be seen by orthopedic surgeon for possible spinal stenosis noted on CT of the cervical spine.
[2019-09-11 12:31] LABS: Glucose,Whole Blood 211 mg/dL (75-99)
--- NOTE | 2019-09-11 14:14 | P.PN ---
Subjective Progress Note Date: 09/11/19 This is an 83-year-old female patient of Dr. Yuan with past medical history of stroke/TIA with known left-sided residual weakness, hypertension, hyperlipidemia, diabetes mellitus type 2 with complications, chronic kidney disease stage III as multiple TIAs in the past, last visit for TIA was seen 02/26/2019. CT of the brain showed cerebral atrophy and old right parietal infarct CTA carotid felt to reveal any carotid stenosis.. Patient was last seen by Dr. Yuan, 4 weeks ago without any medication changes, she was at baseline using a walker, for community ambulation, however this time, patient for any other reason, was not able to ambulate. Has difficulty getting in and out of bed, cannot use a walker anymore, and is such wheelchair-bound. Patient has cervical pain, no new weakness in the upper extremity, however both her generalized weakness, left is chronically paretic, patient denies any recent falls, she has significant memory loss since her CVA, has chronic dysphagia secondary to a most recent CVA. , Patient denies any paresthesias, no foot drops, no spasms. No headache, no lightheadedness. Patient denies any dysphagia There is no old MRI performed in our hospital at all. In the emergency room, they have done a CAT scan of the brain, which showed old right parietal infarct, there is possibility of hydrocephalus, with moderate dilation of the ventricular system, the area of low attenuation in the right parietal lobe seems to have increased from previous study, likely representing remote ischemia, recent ischemia in this lesion is not excluded. Urinalysis is 14, WBC, blood sugars are 224, creatinine 0.9 hemoglobin 11.5 Patient was admitted secondary to difficulty in ambulation, with suspected normal pressure hydrocephalus, they might retaining disease cannot be ruled out, has hyperactive DTRs in the right extremities, also cervical myelopathy cannot be ruled out. Computed tomography scan of the cervical spine and lumbar spines requested, consult with neurology, need to obtain MRI of the brain, patient might need to be evaluated for PICKING TECH shunt if this is truly NPH 09/11: CAT scan of the cervical spine revealed no acute fracture. [id number] spondylotic change with degenerative grade 1 anterior listhesis from C3 through C7. Prominent degenerative change at the C1 dens articulation. Moderate left neuroforaminal stenosis at C3-C4. Additional variable mild neural foraminal narrowing throughout. CAT scan of the lumbar spine revealed m ultilevel moderate degenerative disc disease. Mild spinal canal stenosis at L1- L2 and L3 through L5 with variable degrees of neural foraminal narrowing. Broad based disc bulge at L1-L2 although disc herniation is possible. MRI could further evaluate. Extensive atherosclerosis of the abdominal aorta and branches. Mild cardiomegaly. MRI of the brain revealed a 7 x 3.5 cm old infarct right posterior temporal lobe. Mild hydrocephalus. No evidence of obstruction. She will atrophy. No change compared to 09/10/2019 CAT scan. Patient has been seen by orthopedic spine with plan to continue conservative management regarding her cervical spine and lumbar spine degenerative changes without obvious stenosis. If no other causes for symptoms are evident, plan MRI of the cervical spine for further evaluation. Patient has been seen by neurology and CVA or TIA aren't doubtful. Recommend continuing aspirin and statins. There is possible normal pressure hydrocephalus on CAT scan of the brain and MRI. Dr. Butler discussed with the patient option of spinal tap for large volume spinal tap whic h may help her gait imbalance and suggest NPH and patient has declined. Recommend neurosurgical consultation as an outpatient. Patient was asked about this during our evaluation and she again declines but will talk to her son Domo. Patient has been afebrile, heart rate 106, blood pressure 184/78, pulse ox 96% on room air. Blood sugar running between 173 and 318. Triglycerides 73, cholesterol 178, LDL 110, HDL 53, TSH 0.915. Urine culture is in progress. Patient has been evaluated by PT and OT with recommendations for home with 24- hour supervision. The patient has declined any discharge needs. Plan is to observe overnight and discharge home tomorrow.. Review of Systems Constitutional: Reports as per HPI, Denies anorexia, Denies chills, Denies chronic headaches, Denies chronic pain, Denies daytime sleepiness, Denies fatigue, Denies fever, Denies lethargy, Denies malaise, Denies night sweats, Denies poor appetite, Denies sweats, Denies weakness, Denies weight gain, Denies weight loss EENT: No headache. No blurred vision or double vision, no loss of vision. No loss of Hearing, no ringing in the ears, no dizziness. No nasal drainage or congestion. No epistaxis. No sore throat. Lungs: No shortness of breath, cough, no sputum production. No wheezing. Cardiovascular: No chest pain, no lower extremity edema. No palpitations. No paroxysmal nocturnal dyspnea. No orthopnea. No lightheadedness or dizziness. No syncopal episodes. Abdominal: No abdominal pain. No nausea, vomiting. No diarrhea. No constipation. No bloody or tarry stools.. No loss of appetite. Genitourinary: No dysuria, increased frequency, urgency. No urinary retention. Musculoskeletal: Reports limitation of motion, Reports neck pain, Denies arm numbness/tingling, Denies atrophy, Denies fractures, Denies frequent falls, Denies gait dysfunction, Denies hot joints, Denies leg numbness/tingling, Denies loss of height, Denies low back pain, Denies morning stiffness, Denies muscle cramps, Denies muscle weakness, Denies myalgias, Denies neck stiffness, Denies prior amputations, Denies redness of joints, Denies shooting arm pain, Denies shooting leg pain Integumentary: No wounds, no lesions. No rash or pruritus. No unusual bruising. No change in hair or nails. Neurologic: No aphasia. No facial droop. No change in mentation. No head injury. No headache. Reports balance difficulties, Reports gait dysfunction, Reports motor disturbance, Reports paralysis, Reports weakness Psychiatric: No depression. No anxiety. No mood swings. Endocrine: No abnormal blood sugars. No weight change. No excessive sweating or thirst. No cold intolerance. Objective - Vital Signs Vital signs: Vital Signs Temp 98.0 F 09/11/19 07:42 Pulse 106 H 09/11/19 07:42 Resp 16 09/11/19 07:42 BP 184/78 09/11/19 07:42 Pulse Ox 96 09/11/19 07:42 Intake & Output 09/10/19 09/11/19 09/11/19 18:59 06:59 18:59 Intake Total 540 360 Balance 540 360 Weight 63.957 kg 62.7 kg Intake: Oral 540 360 Other: Voiding Method Toilet Bedside Commode Bedside Commode Diaper Diaper Incontinent Incontinent # Voids 2 - Exam Gen: This is an 84-year-old female. Patient is sitting up recliner and appears to be comfortable and in no acute distress. HEENT: Head is atraumatic, normocephalic. Pupils equal, round. Sclerae is anicteric. Left facial asymmetry. NECK: Supple. No JVD. No lymphadenopathy. No thyromegaly. LUNGS: Clear to auscultation. No wheezes or rhonchi. No intercostal retractions. HEART: Regular rate and rhythm. No murmur. ABDOMEN: Soft. Bowel sounds are present. No masses. No tenderness. EXTREMITIES: No pedal edema. No calf tenderness. Normal strength on the right upper and lower extremities. Mild weakness on the left upper and lower extremities NEUROLOGICAL: Patient is awake, alert and oriented x3. Cranial nerves 2 through 12 are grossly intact. - Labs CBC & Chem 7: 09/10/19 11:33 09/10/19 11:33 Labs: Abnormal Lab Results - Last 24 Hours (Table) 09/10/19 09/10/19 09/10/19 Range/Units 11:33 11:33 12:20 RDW 16.2 H (11.5-15.5) % BUN 32 H (7-17) mg/dL Glucose 224 H (74-99) mg/dL POC Glucose (mg/dL) (75-99) mg/dL LDL Cholesterol, Calc (0-99) mg/dL Ur Leukocyte Esterase Large H (Negative) Urine WBC 14 H (0-5) /hpf Urine Bacteria Rare H (None) /hpf Urine Mucus Rare H (None) /hpf 09/10/19 09/10/19 09/11/19 Range/Units 17:02 20:23 06:03 RDW (11.5-15.5) % BUN (7-17) mg/dL Glucose (74-99) mg/dL POC Glucose (mg/dL) 232 H 318 H (75-99) mg/dL LDL Cholesterol, Calc 110 H (0-99) mg/dL Ur Leukocyte Esterase (Negative) Urine WBC (0-5) /hpf Urine Bacteria (None) /hpf Urine Mucus (None) /hpf 09/11/19 Range/Units 06:06 RDW (11.5-15.5) % BUN (7-17) mg/dL Glucose (74-99) mg/dL POC Glucose (mg/dL) 173 H (75-99) mg/dL LDL Cholesterol, Calc (0-99) mg/dL Ur Leukocyte Esterase (Negative) Urine WBC (0-5) /hpf Urine Bacteria (None) /hpf Urine Mucus (None) /hpf Microbiology - Last 24 Hours (Table) 09/10/19 12:20 Urine Culture - Preliminary Urine,Voided Assessment and Plan Plan: 1. Inability to ambulate which is acute, bilateral lower extremity weakness, normal pressure hydrocephalus is suspected. Patient declined lumbar puncture. Degenerative changes in the cervical spine, spinal canal stenosis in the lumbar area. Consults with neurology and orthopedic spine appreciated. 2. Hyperactive deep tendon reflexes. 3. Old parietal infarct on the right, with left hemiparesis 4. Hypertension. Continue amlodipine 10 mg daily, losartan 100 mg daily, Lopressor 50 mg twice daily. 5. Hyperlipidemia. Continue Lipitor 20 mg daily. 6. Diabetes mellitus type 2 with hyperglycemia and complications. Continue Actos 15 mg daily and NovoLog scale before meals and at bedtime. 7. Chronic kidney disease stage II Avoid nephrotoxic agents. 8. Possible urinary tract infection. Rocephin 1 g daily. Await urine culture report. 9. Gastroesophageal reflux disease. Continue omeprazole 20 mg daily. 10. Insomnia. Continue Xanax or 0.25 mg at bedtime as needed. 11. DVT prophylaxis. Heparin subcu. Discharge plan: Home on Saturday. Patient declined need of home care. Impression and plan of care have been directed as dictated by the signing physician. Marley Dow nurse practitioner acting as scribe for signing phys ician.
[2019-09-11 15:29] VITALS: BMI 25.2
[2019-09-11 16:58] LABS: Glucose,Whole Blood 195 mg/dL (75-99)
[2019-09-11 20:20] LABS: Glucose,Whole Blood 269 mg/dL (75-99)
[2019-09-11] MEDS: ALPRAZolam 0.25 MG TAB PO PRN (20:24)
[2019-09-11] MEDS: SERTRALINE 50 MG TAB PO SCH (20:24)
[2019-09-11] MEDS: NON FORMULARY DRUG (Doxylamine Succinate [Unisom] 25 MG) PO SCH (20:25)
[2019-09-12] MEDS: methylPREDNISolone SOD SUCCI 125 MG/2 ML VIAL IV SCH ×2 (06:00→11:31)
[2019-09-12] MEDS: PANTOPRAZOLE 40 MG TABLET PO SCH (06:00)
[2019-09-12 06:20] LABS: Glucose,Whole Blood 202 mg/dL (75-99)
[2019-09-12] MEDS: INSULIN ASPART (NovoLOG) 100 UNIT/ML VIAL SQ SCH ×2 (06:24→11:54)
[2019-09-12] MEDS: amLODIPine 10 MG TAB PO SCH (08:05)
[2019-09-12] MEDS: ASPIRIN 81 MG PO SCH (08:05)
[2019-09-12] MEDS: LOSARTAN 50 MG TAB PO SCH (08:05)
[2019-09-12] MEDS: ATORVASTATIN 40 MG TAB PO SCH (08:05)
[2019-09-12] MEDS: ISOSORBIDE MONONITRATE ER 30 MG TAB.ER.24H PO SCH (08:05)
[2019-09-12] MEDS: METOPROLOL TARTRATE 50 MG TAB PO SCH (08:06)
[2019-09-12] MEDS: PIOGLITAZONE 30 MG TAB PO SCH (08:06)
[2019-09-12 11:24] VITALS: BP 133/61; PULSE 70; RESP 18
[2019-09-12 11:38] LABS: Glucose,Whole Blood 194 mg/dL (75-99)
[2019-09-12 13:53] VITALS: TEMP 98.3
--- NOTE | 2019-09-12 17:09 | P.DS ---
Providers Date of admission: 09/10/19 12:41 Expected date of discharge: 09/12/19 Attending physician: Vane Ching Consults: 09/10/19 12:41 Consult Physician Routine Consulting Provider: Raysa Butler Consult Reason/Comments: CVA, difficulty ambulating Do you want consulting provider notified?: Yes 09/10/19 14:17 Consult Physician Routine Consulting Provider: Alexis Orellana Consult Reason/Comments: cervical myelopathy with spinal stenosis Do you want consulting provider notified?: Yes Primary care physician: Celi Yuan [facility] Course: This is an 83-year-old female patient of Dr. Yuan with past medical history of stroke/TIA with known left-sided residual weakness, hypertension, hyperlipidemia, diabetes mellitus type 2 with complications, chronic kidney di sease stage III as multiple TIAs in the past, last visit for TIA was seen 02/26/2019. CT of the brain showed cerebral atrophy and old right parietal infarct CTA carotid felt to reveal any carotid stenosis.. Patient was last seen by Dr. Yuan, 4 weeks ago without any medication changes, she was at baseline using a walker, for community ambulation, however this time, patient for any other reason, was not able to ambulate. Has difficulty getting in and out of bed, cannot use a walker anymore, and is such wheelchair-bound. Patient has cervical pain, no new weakness in the upper extremity, however both her generalized weakness, left is chronically paretic, patient denies any recent falls, she has significant memory loss since her CVA, has chronic dysphagia secondary to a most recent CVA. , Patient denies any paresthesias, no foot drops, no spasms. No headache, no lightheadedness. Patient denies any dysphagia There is no old MRI performed in our hospital at all. In the emergency room, they have done a CAT scan of the brain, which showed old right parietal infarct, there is possibility of hydrocephalus, with moderate dilation of the ventricular system, the area of low attenuation in the right parietal lobe seems to have increased from previous study, likely representing remote ischemia, recent ischemia in this lesion is not excluded. Urinalysis is 14, WBC, blood sugars are 224, creatinine 0.9 hemoglobin 11.5 Patient was admitted secondary to difficulty in ambulation, with suspected normal pressure hydrocephalus, they might retaining disease cannot be ruled out, has hyperactive DTRs in the right extremities, also cervical myelopathy cannot be ruled out. Computed tomography scan of the cervical spine and lumbar spines requested, consult with neurology, need to obtain MRI of the brain, patient might need to be evaluated for WET MIX OPERATOR shunt if this is truly NPH 09/11: CAT scan of the cervical spine revealed no acute fracture. [id number] spondylotic change with degenerative grade 1 anterior listhesis from C3 through C7. Prominent degenerative change at the C1 dens articulation. Moderate left neuroforaminal stenosis at C3-C4. Additional variable mild neural foraminal narrowing throughout. CAT scan of the lumbar spine revealed multilevel moderate degenerative disc disease. Mild spinal canal stenosis at L1-L2 and L3 through L5 with variable degrees of neural foraminal narrowing. Broad based disc bulge at L1-L2 although disc herniation is possible. MRI could further evaluate. Extensive atherosclerosis of the abdominal aorta and branches. Mild cardiomegaly. MRI of the brain revealed a 7 x 3.5 cm old infarct right posterior temporal lobe. Mild hydrocephalus. No evidence of obstruction. She will atrophy. No change compared to 09/10/2019 CAT scan. Patient has been seen by orthopedic spine with plan to continue conservative management regarding her cervical spine and lumbar spine degenerative changes without obvious stenosis. If no other causes for symptoms are evident, plan MRI of the cervical spine for further evaluation. Patient has been seen by neurology and CVA or TIA aren't doubtful. Recommend continuing aspirin and statins. There is possible normal pressure hydrocephalus on CAT scan of the brain and MRI. Dr. Butler discussed with the patient option of spinal tap for large volume spinal tap which may help her gait imbalance and suggest NPH and patient has declined. Recommend neurosurgical consultation as an outpatient. Patient was asked about this during our evaluation and she again declines but will talk to her son Domo. Patient has been afebrile, heart rate 106, blood pressure 184/78, pulse ox 96% on room air. Blood sugar running between 173 and 318. Triglycerides 73, cholesterol 178, LDL 110, HDL 53, TSH 0.915. Urine culture is in progress. Patient has been evaluated by PT and OT with recommendations for home with 24- hour supervision. The patient has declined any discharge needs. Plan is to observe overnight and discharge home tomorrow. 09/12: Afebrile, HR 70, 133/61. BS 194-268. Pt states she is back to her baseline strength and believes she will be safe for discharge. Son will be contacted by seda isbell to ensure dc plan. Pt will be discharged home today in stable condition. Discharge diagnoses: 1. Inability to ambulate which is acute, bilateral lower extremity weakness, normal pressure hydrocephalus is suspected. 2. Hyperactive deep tendon reflexes. 3. Old parietal infarct on the right, with left hemiparesis 4. Hypertension. 5. Hyperlipidemia. 6. Diabetes mellitus type 2 with hyperglycemia and complications. 7. Chronic kidney disease stage II 8. Possible urinary tract infection. 9. Gastroesophageal reflux disease. 10. Insomnia. Discharge plan: Home. Patient declined need of home care. Impression and plan of care have been directed as dictated by the signing physician. Marley Dow nurse practitioner acting as scribe for signing physician. Patient Condition at Discharge: Good Plan - Discharge Summary Discharge Rx Participant: No New Discharge Prescriptions: Continue Omeprazole 20 mg PO DAILY Metoprolol Tartrate [Lopressor] 50 mg PO BID Losartan Potassium 100 mg PO DAILY amLODIPine [Norvasc] 10 mg PO DAILY Furosemide [Lasix] 20 mg PO DAILY PRN PRN Reason: Edema ALPRAZolam [Xanax] 0.25 mg PO HS PRN #3 tab PRN Reason: Insomnia Acetaminophen [Tylenol] 500 mg PO Q4-6H PRN PRN Reason: Pain Doxylamine Succinate [Unisom] 25 mg PO HS Atorvastatin [Lipitor] 40 mg PO DAILY Sertraline [Zoloft] 50 mg PO HS Isosorbide Mononitrate ER [Imdur] 30 mg PO DAILY Pioglitazone [Actos] 30 mg PO DAILY Aspirin EC [Ecotrin Low Dose] 81 mg PO DAILY Discharge Medication List Losartan Potassium 100 mg PO DAILY 07/25/18 [History] Metoprolol Tartrate [Lopressor] 50 mg PO BID 07/25/18 [History] Omeprazole 20 mg PO DAILY 07/25/18 [History] amLODIPine [Norvasc] 10 mg PO DAILY 02/27/19 [History] Furosemide [Lasix] 20 mg PO DAILY PRN 04/06/19 [History] ALPRAZolam [Xanax] 0.25 mg PO HS PRN #3 tab 04/10/19 [Rx] Acetaminophen [Tylenol] 500 mg PO Q4-6H PRN 09/10/19 [History] Aspirin EC [Ecotrin Low Dose] 81 mg PO DAILY 09/10/19 [History] Atorvastatin [Lipitor] 40 mg PO DAILY 09/10/19 [History] Doxylamine Succinate [Unisom] 25 mg PO HS 09/10/19 [History] Isosorbide Mononitrate ER [Imdur] 30 mg PO DAILY 09/10/19 [History] Pioglitazone [Actos] 30 mg PO DAILY 09/10/19 [History] Sertraline [Zoloft] 50 mg PO HS 09/10/19 [History] Follow up Appointment(s)/Referral(s): Celi Yuan MD [Primary Care Provider] - 1 Week Patient Instructions/Handouts: Ischemic Stroke (DC) Discharge Disposition: HOME SELF-CARE
== END 2019-09-12 16:30 | disposition home or self-care (01) | DRG 57 ==
LOC: EC 11:00 → 3SCARD 12:41
PROVIDERS: ADMIT Family Medicine; ATTEND Family Medicine
DX: G91.2 (Idiopathic) normal pressure hydrocephalus (principal); I69.354 Hemiplegia and hemiparesis following cerebral infarction affecting left non-dominant side; N39.0 Urinary tract infection, site not specified; K21.9 Gastro-esophageal reflux disease without esophagitis; H53.462 Homonymous bilateral field defects, left side; E11.22 Type 2 diabetes mellitus with diabetic chronic kidney disease; R29.2 Abnormal reflex; I12.9 Hypertensive chronic kidney disease with stage 1 through stage 4 chronic kidney disease, or unspecified chronic kidney disease; E78.5 Hyperlipidemia, unspecified; E11.65 Type 2 diabetes mellitus with hyperglycemia; G47.00 Insomnia, unspecified; M50.31 Other cervical disc degeneration, high cervical region; M43.12 Spondylolisthesis, cervical region; I08.3 Combined rheumatic disorders of mitral, aortic and tricuspid valves; J32.0 Chronic maxillary sinusitis; I69.312 Visuospatial deficit and spatial neglect following cerebral infarction; I70.0 Atherosclerosis of aorta; N18.2 Chronic kidney disease, stage 2 (mild); M51.36 Other intervertebral disc degeneration, lumbar region; M47.816 Spondylosis without myelopathy or radiculopathy, lumbar region; M48.061 Spinal stenosis, lumbar region without neurogenic claudication; Z79.899 Other long term (current) drug therapy; Z79.82 Long term (current) use of aspirin; Z79.84 Long term (current) use of oral hypoglycemic drugs; Z99.3 Dependence on wheelchair; Z96.651 Presence of right artificial knee joint; Z87.11 Personal history of peptic ulcer disease; Z87.19 Personal history of other diseases of the digestive system; Z90.710 Acquired absence of both cervix and uterus; Z90.49 Acquired absence of other specified parts of digestive tract; Z96.643 Presence of artificial hip joint, bilateral; Z98.890 Other specified postprocedural states; Z87.891 Personal history of nicotine dependence; Z88.5 Allergy status to narcotic agent; Z88.0 Allergy status to penicillin; Z82.49 Family history of ischemic heart disease and other diseases of the circulatory system; Z81.1 Family history of alcohol abuse and dependence; Z83.3 Family history of diabetes mellitus
CPT/HCPCS: 36415; 70450; 70551; 71046; 72125; 72131; 80053; 80061; 81001; 82550; 82607; 83605; 84443; 85025; 85610; 85730; 87086; 93005; 96361; 96374; 99285; 99291

== ENCOUNTER 2019-10-14 11:10 | Observation (INO) | payer MEDICARE ==
--- NOTE | 2019-10-14 11:37 | ED ---
General Adult HPI - General Chief complaint: Skin/Abscess/Foreign Body Stated complaint: diabetic would on foot Time Seen by Provider: 10/14/19 11:23 Source: patient, family, RN notes reviewed Mode of arrival: ambulatory Limitations: no limitations - History of Present Illness Initial comments: Patient is a pleasant 84-year-old female presenting to the emergency Department with complaints of left toe infection. Onset of symptoms was approximately a w viejas ago. Patient is a poor historian and majority of history is taken from family. Patient did see her primary care physician Dr. Yuan yesterday and started on doxycycline. He did do a wound culture and blood work. Results today revealed sedimentation rate at 70 and patient advised to come to the hospital. No reported fevers. Patient does not appear to have neck and pain however has neuropathy and does not normally feel pain of her feet. - Related Data Home Medications Medication Instructions Recorded Confirmed Losartan Potassium 100 mg PO DAILY 07/25/18 10/14/19 Metoprolol Tartrate [Lopressor] 50 mg PO BID 07/25/18 10/14/19 Omeprazole 20 mg PO DAILY 07/25/18 10/14/19 amLODIPine [Norvasc] 10 mg PO DAILY 02/27/19 10/14/19 Furosemide [Lasix] 20 mg PO DAILY PRN 04/06/19 10/14/19 Acetaminophen [Tylenol] 500 mg PO Q4-6H PRN 09/10/19 10/14/19 Aspirin EC [Ecotrin Low Dose] 81 mg PO DAILY 09/10/19 10/14/19 Atorvastatin [Lipitor] 40 mg PO DAILY 09/10/19 10/14/19 Doxylamine Succinate [Unisom] 25 mg PO HS 09/10/19 10/14/19 Isosorbide Mononitrate ER [Imdur] 30 mg PO DAILY 09/10/19 10/14/19 Pioglitazone [Actos] 30 mg PO DAILY 09/10/19 10/14/19 Sertraline [Zoloft] 50 mg PO HS 09/10/19 10/14/19 Doxycycline Hyclate 100 mg PO BID 10/14/19 10/14/19 Previous Rx's Medication Instructions Recorded ALPRAZolam [Xanax] 0.25 mg PO HS PRN #3 tab 04/10/19 Allergies Allergy/AdvReac Type Severity Reaction Status Date / Time codeine Allergy Unknown Verified 10/14/19 12:13 Penicillins Allergy Rash/Hives Verified 10/14/19 12:13 Review of Systems ROS Statement: Those systems with pertinent positive or pertinent negative responses have been documented in the HPI. ROS Other: All systems not noted in ROS Statement are negative. Constitutional: Denies: fever Eyes: Denies: eye pain ENT: Denies: ear pain Respiratory: Denies: cough Cardiovascular: Denies: chest pain Endocrine: Denies: fatigue Gastrointestinal: Denies: abdominal pain Genitourinary: Denies: dysuria Musculoskeletal: Denies: back pain Skin: Reports: as per HPI, rash Past Medical History Past Medical History: CVA/TIA, Diabetes Mellitus, GERD/Reflux, Hyperlipidemia, Hypertension, Liver Disease Additional Past Medical History / Comment(s): 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 History of Any Multi-Drug Resistant Organisms: None Reported Past Surgical History: Appendectomy, Hysterectomy, Joint Replacement, Orthopedic Surgery Additional Past Surgical History / Comment(s): R shoulder open surgery, R total knee replacement, R total hip replacement, bilateral wrist carpal tunnel releases, colonoscopy Past Anesthesia/Blood Transfusion Reactions: No Reported Reaction Past Psychological History: No Psychological Hx Reported Smoking Status: Former smoker Past Alcohol Use History: None Reported Past Drug Use History: None Reported - Past Family History Father Family Medical History: Myocardial Infarction ([place]) Additional Family Medical History / Comment(s): father from issues associated with alcoholism Mother Family Medical History: CVA/TIA, Myocardial Infarction ([place]) Additional Family Medical History / Comment(s): Mother at age 90 from myocardial infarction. Sister(s) Family Medical History: Diabetes Mellitus Daughter(s) Additional Family Medical History / Comment(s): Patient states she has 8 children with no major medical problems. General Exam Limitations: no limitations General appearance: alert, in no apparent distress Head exam: Present: normocephalic Eye exam: Present: normal appearance Neck exam: Present: normal inspection Respiratory exam: Present: normal lung sounds bilaterally Cardiovascular Exam: Present: regular rate, normal rhythm GI/Abdominal exam: Present: soft. Absent: tenderness Extremities exam: Present: other (L great Toe with swelling and erythema. Purulent discharge obtained from area just proximal to the nail blood.) Neurological exam: Present: alert Psychiatric exam: Present: normal affect, normal mood Skin exam: Present: erythema (Great toe, left) Course Vital Signs 10/14/19 11:19 Temperature 98.5 F Pulse Rate 79 Respiratory 20 Rate Blood Pressure 128/61 O2 Sat by Pulse 98 Oximetry Medical Decision Making - Medical Decision Making Case discussed with Dr. Powell, covering for Dr. Yuan, who will admit. He does request consult with infectious disease. Patient and family reevaluated and updated. - Lab Data Result diagrams: 10/14/19 12:10 10/14/19 12:10 Lab Results 10/14/19 10/14/19 10/14/19 Range/Units 12:10 12:10 12:10 WBC 7.2 (3.8-10.6) k/uL RBC 4.06 (3.80-5.40) m/uL Hgb 11.2 L (11.4-16.0) gm/dL Hct 34.6 (34.0-46.0) % MCV 85.2 (80.0-100.0) fL MCH 27.5 (25.0-35.0) pg MCHC 32.3 (31.0-37.0) g/dL RDW 16.3 H (11.5-15.5) % Plt Count 211 (150-450) k/uL Neutrophils % 72 % Lymphocytes % 19 % Monocytes % 5 % Eosinophils % 2 % Basophils % 0 % Neutrophils # 5.2 (1.3-7.7) k/uL Lymphocytes # 1.3 (1.0-4.8) k/uL Monocytes # 0.4 (0-1.0) k/uL Eosinophils # 0.2 (0-0.7) k/uL Basophils # 0.0 (0-0.2) k/uL Anisocytosis Slight Sodium 137 (137-145) mmol/L Potassium 4.6 (3.5-5.1) mmol/L Chloride 102 (98-107) mmol/L Carbon Dioxide 24 (22-30) mmol/L Anion Gap 11 mmol/L BUN 20 H (7-17) mg/dL Creatinine 0.83 (0.52-1.04) mg/dL Est GFR (CKD-EPI)AfAm 75 (>60 ml/min/1.73 sqM) Est GFR (CKD-EPI)NonAf 65 (>60 ml/min/1.73 sqM) Glucose 201 H (74-99) mg/dL Plasma Lactic Acid Narayan 1.5 (0.7-2.0) mmol/L Calcium 9.3 (8.4-10.2) mg/dL Total Bilirubin 0.4 (0.2-1.3) mg/dL AST 26 (14-36) U/L ALT 15 (4-34) U/L Alkaline Phosphatase 86 (38-126) U/L C-Reactive Protein 50.7 H (<10.0) mg/L Total Protein 7.3 (6.3-8.2) g/dL Albumin 3.7 (3.5-5.0) g/dL - Radiology Data Radiology results: image reviewed Disposition Clinical Impression: Cellulitis, toe, Diabetic foot ulcer Disposition: ADMITTED IP TO THIS [facility] Is patient prescribed a controlled substance at d/c from ED?: No Referrals: Celi Yuan MD [Primary Care Provider] - 1-2 days Decision Time: 12:54
[2019-10-14] MEDS: SODIUM CHLORIDE 0.9% 1,000 ML IV SCH ×2 (12:07→22:04)
[2019-10-14 12:28] LABS: Anisocytosis Slight; Basophils % (A) 0 %; Eosinophils # (A) 0.2 k/uL (0-0.7); Eosinophils % (A) 2 %; HCT 34.6 % (34.0-46.0); HGB 11.2 gm/dL (11.4-16.0); Lymphocytes # (A) 1.3 k/uL (1.0-4.8); Lymphocytes % (A) 19 %; MCH 27.5 pg (25.0-35.0); MCHC 32.3 g/dL (31.0-37.0); MCV 85.2 fL (80.0-100.0); Mean Platelet Volume 7.1; Monocytes # (A) 0.4 k/uL (0-1.0); Monocytes % (A) 5 %; Neutrophils # (A) 5.2 k/uL (1.3-7.7); Neutrophils % (A) 72 %; Platelet Count 211 k/uL (150-450); RBC 4.06 m/uL (3.80-5.40); RDW 16.3 % (11.5-15.5); WBC 7.2 k/uL (3.8-10.6)
[2019-10-14 12:36] LABS: Albumin 3.7 g/dL (3.5-5.0); C Reactive Protein 50.7 mg/L (<10.0); Calcium 9.3 mg/dL (8.4-10.2); Potassium 4.6 mmol/L (3.5-5.1); Total Bilirubin 0.4 mg/dL (0.2-1.3); Total Protein 7.3 g/dL (6.3-8.2)
[2019-10-14 12:49] LABS: Partial Thromboplastin Time 24.5 sec (22.0-30.0); Prothrombin Time 10.3 sec (9.0-12.0)
--- NOTE | 2019-10-14 12:50 | XR ---
EXAMINATION TYPE: XR foot complete LT DATE OF EXAM: 10/14/2019 COMPARISON: None HISTORY: Toe infection first digit TECHNIQUE: Three-view left foot FINDINGS: Plantar and Achilles tendon calcaneal heel spurs are present. No acute fractures or disloca tions are evident. Joint spaces appear preserved. No suspicious cortical erosions are evident. There is some hallux valgus deformity of the first digit . Soft tissues appear normal. IMPRESSION: 1. No suspicious changes to suggest acute osteomyelitis based on radiographs. 2. If there is sufficient suspicion, three-phase bone scan could be performed.
[2019-10-14] MEDS ORDERED: LEVOFLOXACIN 750MG-D5W PMX 750 MG in DEXTROSE/WATER 1 150ML.BAG IVPB STA (12:54)
[2019-10-14] MEDS ORDERED: NALOXONE 0.4 MG/ML 1 ML VIAL IV PRN (12:55)
[2019-10-14] MEDS ORDERED: FUROSEMIDE 20 MG TAB PO PRN (13:40)
[2019-10-14] MEDS ORDERED: ALPRAZolam 0.25 MG TAB PO PRN (13:40)
[2019-10-14 14:07] LABS: Erythrocyte Sedimentation Rate 67 mm/hr (0-20)
--- NOTE | 2019-10-14 15:51 | P.GSCN ---
History of Present Illness Consult date: 10/14/19 History of present illness: The patient is an 80-year-old female who presented to the emergency department after being seen by her PCP Dr. Yuan in the office yesterday for a left great toe foot ulcer. The majority of the history is obtained from the patient's family who is at the bedside, as the patient has a history of prior CVA with altered mental status, neuropathy, and residual left-sided weakness. The family states they noticed redness and swelling of the left great toe on Saturday, they brought the patient into her PCP who did cultures and blood work revealing a sed rate of 70; therefore the patient was advised to go to the hospital. The patient's family denies any fevers, chills, or drainage from the ulcer. The patient's family states that her diabetes is well-controlled with medications. The patient reports no pain to bilateral lower extremities, the family states that she has bilateral lower extremity neuropathy. The patient has a past medical history that includes diabetes mellitus CVA/TIA, hypertension, hyperlipidemia, and chronic liver disease. The patient and family state no prior history of peripheral arterial disease. The patient was a former smoker for at least 25 years. 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 History of Any Multi-Drug Resistant Organisms: None Reported Past Surgical History: Appendectomy, Hysterectomy, Joint Replacement, Orthopedic Surgery Additional Past Surgical History / Comment(s): R shoulder open surgery, R total knee replacement, R total hip replacement, bilateral wrist carpal tunnel releases, colonoscopy Past Anesthesia/Blood Transfusion Reactions: No Reported Reaction Past Psychological History: No Psychological Hx Reported Smoking Status: Former smoker Past Alcohol Use History: None Reported Past Drug Use History: None Reported - Past Family History Father Family Medical History: Myocardial Infarction ([place]) Additional Family Medical History / Comment(s): father from issues associated with alcoholism Mother Family Medical History: CVA/TIA, Myocardial Infarction ([place]) Additional Family Medical History / Comment(s): Mother at age 90 from myocardial infarction. Sister(s) Family Medical History: Diabetes Mellitus Daughter(s) Additional Family Medical History / Comment(s): Patient states she has 8 children with no major medical problems. Medications and Allergies Home Medications Medication Instructions Recorded Confirmed Type Losartan Potassium 100 mg PO DAILY 07/25/18 10/14/19 History Metoprolol Tartrate [Lopressor] 50 mg PO BID 07/25/18 10/14/19 History Omeprazole 20 mg PO DAILY 07/25/18 10/14/19 History amLODIPine [Norvasc] 10 mg PO DAILY 02/27/19 10/14/19 History Furosemide [Lasix] 20 mg PO DAILY PRN 04/06/19 10/14/19 History ALPRAZolam [Xanax] 0.25 mg PO HS PRN #3 tab 04/10/19 10/14/19 Rx Acetaminophen [Tylenol] 500 mg PO Q4-6H PRN 09/10/19 10/14/19 History Aspirin EC [Ecotrin Low Dose] 81 mg PO DAILY 09/10/19 10/14/19 History Atorvastatin [Lipitor] 40 mg PO DAILY 09/10/19 10/14/19 History Doxylamine Succinate [Unisom] 25 mg PO HS 09/10/19 10/14/19 History Isosorbide Mononitrate ER [Imdur] 30 mg PO DAILY 09/10/19 10/14/19 History Pioglitazone [Actos] 30 mg PO DAILY 09/10/19 10/14/19 History Sertraline [Zoloft] 50 mg PO HS 09/10/19 10/14/19 History Doxycycline Hyclate 100 mg PO BID 10/14/19 10/14/19 History Allergies Allergy/AdvReac Type Severity Reaction Status Date / Time codeine Allergy Unknown Verified 10/14/19 12:13 Penicillins Allergy Rash/Hives Verified 10/14/19 12:13 Surgical - Exam Vital Signs Temp Pulse Resp BP Pulse Ox 98.5 F 79 20 128/61 98 10/14/19 11:19 10/14/19 11:19 10/14/19 11:19 10/14/19 11:19 10/14/19 11:19 General appearance: The patient is alert, however not oriented. HET: Head is normocephalic and atraumatic. Neck: Supple without lymphadenopathy. Heart: S1 S2. Regular rate and rhythm. Lungs: No crackles or wheezes are heard. Extremities: Normal skin color and turgor. No edema. Bilateral lower extremities warm to the touch. Palpable bilateral PT and DP pulses. Left foot great toe with redness and swelling along nail bed and medial side of nail with small ulceration. Neurological: Decreased sensation in bilateral lower extremities, mobility of bilateral upper and lower extremities. Results X-ray of the left foot shows no suspicious changes to suggest acute osteomyelitis, if there is sufficient suspicion, a 3-phase bone scan could be performed. - Labs 10/14/19 12:10 10/14/19 12:10 Abnormal Lab Results - Last 24 Hours (Table) 10/14/19 10/14/19 Range/Units 12:10 12:10 Hgb 11.2 L (11.4-16.0) gm/dL RDW 16.3 H (11.5-15.5) % ESR 67 H (0-20) mm/hr BUN 20 H (7-17) mg/dL Glucose 201 H (74-99) mg/dL C-Reactive Protein 50.7 H (<10.0) mg/L Diabetes panel 10/14/19 Range/Units 12:10 Sodium 137 (137-145) mmol/L Potassium 4.6 (3.5-5.1) mmol/L Chloride 102 (98-107) mmol/L Carbon Dioxide 24 (22-30) mmol/L BUN 20 H (7-17) mg/dL Creatinine 0.83 (0.52-1.04) mg/dL Glucose 201 H (74-99) mg/dL Calcium 9.3 (8.4-10.2) mg/dL AST 26 (14-36) U/L ALT 15 (4-34) U/L Alkaline Phosphatase 86 (38-126) U/L Total Protein 7.3 (6.3-8.2) g/dL Albumin 3.7 (3.5-5.0) g/dL Calcium panel 10/14/19 Range/Units 12:10 Calcium 9.3 (8.4-10.2) mg/dL Albumin 3.7 (3.5-5.0) g/dL Pituitary panel 10/14/19 Range/Units 12:10 Sodium 137 (137-145) mmol/L Potassium 4.6 (3.5-5.1) mmol/L Chloride 102 (98-107) mmol/L Carbon Dioxide 24 (22-30) mmol/L BUN 20 H (7-17) mg/dL Creatinine 0.83 (0.52-1.04) mg/dL Glucose 201 H (74-99) mg/dL Calcium 9.3 (8.4-10.2) mg/dL Adrenal panel 10/14/19 Range/Units 12:10 Sodium 137 (137-145) mmol/L Potassium 4.6 (3.5-5.1) mmol/L Chloride 102 (98-107) mmol/L Carbon Dioxide 24 (22-30) mmol/L BUN 20 H (7-17) mg/dL Creatinine 0.83 (0.52-1.04) mg/dL Glucose 201 H (74-99) mg/dL Calcium 9.3 (8.4-10.2) mg/dL Total Bilirubin 0.4 (0.2-1.3) mg/dL AST 26 (14-36) U/L ALT 15 (4-34) U/L Alkaline Phosphatase 86 (38-126) U/L Total Protein 7.3 (6.3-8.2) g/dL Albumin 3.7 (3.5-5.0) g/dL Assessment and Plan Assessment: #1 left great toe diabetic ulcer #2 cellulitis of the left great toe #3 diabetes mellitus #4 past history CVA/TIA with residual left-sided weakness #5 hypertension #6 hyperlipidemia Plan: Continue IV antibiotics. Await culture results. Await recommendations per infectious disease. Further recommendations to follow. Thank you for this consultation and allowing us to take part plan of care of this patient during her hospital stay. The above dictated assessment and findings were discussed with Dr. Randle. The impression and plan of care have been directed as dictated.
[2019-10-14 17:34] LABS: Glucose,Whole Blood 141 mg/dL (75-99)
[2019-10-14] MEDS: INSULIN ASPART (NovoLOG) 100 UNIT/ML VIAL SQ SCH ×2 (18:14→22:04)
[2019-10-14] MEDS: ACETAMINOPHEN TAB 500 MG TAB PO PRN (18:31)
[2019-10-14 20:04] LABS: Glucose,Whole Blood 142 mg/dL (75-99)
[2019-10-14] MEDS: METOPROLOL TARTRATE 50 MG TAB PO SCH (22:03)
[2019-10-14] MEDS: SERTRALINE 50 MG TAB PO SCH (22:03)
[2019-10-14] MEDS: DOXYLAMINE SUCCINATE 25 MG PO SCH (22:06)
[2019-10-14] MEDS ORDERED: ZOLPIDEM 5 MG TAB PO PRN (23:40)
[2019-10-14] MEDS ORDERED: HYDROcodone/APAP 5-325MG 1 EACH TAB PO PRN (23:42)
--- NOTE | 2019-10-14 23:50 | P.CONS ---
History of Present Illness - Reason for Consult Consult date: 10/14/19 Left big toe infection Requesting physician: Wang Smith - Chief Complaint Left big toe swelling and redness x one week - History of Present Illness Patient is 84-year-old female who apparently had did have problem with the left big toe possible ingrowing toenail and this patient noticed to have swelling and redness of her left big toe for the patient has been evaluated in the outpatient setting by her primary care physician apparently the patient did have her local cultures obtained and she was started on doxycycline patient also have blood work done she was noticed to have elevated sed rate of 70 for the patient has been advised to go to the hospital for further management, patient currently denies having any fever or any chills, patient denies having any pain to her left big toe, the patient did have a swelling and redness to the left big toe currently with no open wound or any purulent drainage patient on arrival to the area has been afebrile her white count has been normal patient did have x- rays of the left foot which did not show any bony erosion patient has been started on Levaquin because of her penicillin ALLERGY infection disease was c onsulted for further recommendation regarding antibiotic therapy Review of Systems Positive point has been mentioned in the HPI rest of the systems are negative Past Medical History Past Medical History: CVA/TIA, Diabetes Mellitus, GERD/Reflux, Hyperlipidemia, Hypertension, Liver Disease Additional Past Medical History / Comment(s): 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 History of Any Multi-Drug Resistant Organisms: None Reported Past Surgical History: Appendectomy, Hysterectomy, Joint Replacement, Orthopedic Surgery Additional Past Surgical History / Comment(s): R shoulder open surgery, R total knee replacement, R total hip replacement, bilateral wrist carpal tunnel releas es, colonoscopy Past Anesthesia/Blood Transfusion Reactions: No Reported Reaction Past Psychological History: No Psychological Hx Reported Smoking Status: Former smoker Past Alcohol Use History: None Reported Past Drug Use History: None Reported - Past Family History Father Family Medical History: Myocardial Infarction ([place]) Additional Family Medical History / Comment(s): father from issues associated with alcoholism Mother Family Medical History: CVA/TIA, Myocardial Infarction ([place]) Additional Family Medical History / Comment(s): Mother at age 90 from myocardial infarction. Sister(s) Family Medical History: Diabetes Mellitus Daughter(s) Additional Family Medical History / Comment(s): Patient states she has 8 children with no major medical problems. Medications and Allergies Home Medications Medication Instructions Recorded Confirmed Type Losartan Potassium 100 mg PO DAILY 07/25/18 10/14/19 History Metoprolol Tartrate [Lopressor] 50 mg PO BID 07/25/18 10/14/19 History Omeprazole 20 mg PO DAILY 07/25/18 10/14/19 History amLODIPine [Norvasc] 10 mg PO DAILY 02/27/19 10/14/19 History Furosemide [Lasix] 20 mg PO DAILY PRN 04/06/19 10/14/19 History ALPRAZolam [Xanax] 0.25 mg PO HS PRN #3 tab 04/10/19 10/14/19 Rx Acetaminophen [Tylenol] 500 mg PO Q4-6H PRN 09/10/19 10/14/19 History Aspirin EC [Ecotrin Low Dose] 81 mg PO DAILY 09/10/19 10/14/19 History Atorvastatin [Lipitor] 40 mg PO DAILY 09/10/19 10/14/19 History Doxylamine Succinate [Unisom] 25 mg PO HS 09/10/19 10/14/19 History Isosorbide Mononitrate ER [Imdur] 30 mg PO DAILY 09/10/19 10/14/19 History Pioglitazone [Actos] 30 mg PO DAILY 09/10/19 10/14/19 History Sertraline [Zoloft] 50 mg PO HS 09/10/19 10/14/19 History Doxycycline Hyclate 100 mg PO BID 10/14/19 10/14/19 History Allergies Allergy/AdvReac Type Severity Reaction Status Date / Time codeine Allergy Unknown Verified 10/14/19 12:13 Penicillins Allergy Rash/Hives Verified 10/14/19 12:13 Physical Exam Vitals: Vital Signs Temp Pulse Resp BP Pulse Ox 10/14/19 17:05 98.8 F 85 18 130/89 98 10/14/19 11:19 98.5 F 79 20 128/61 98 Intake and Output 02/10/14/19 10/14/19 06:59 14:59 22:59 Other: Weight 70.76 kg GENERAL DESCRIPTION: An elderly female lying in bed, no distress. No tachypnea or accessory muscle of respiration use. HEENT: Shows Pallor , no scleral icterus. Oral mucous membrane is dry. No pharyngeal erythema or thrush NECK: Trachea central, no thyromegaly. LUNGS: Unlabored breathing. Clear to auscultation anteriorly. No wheeze or crackle. HEART: S1, S2, regular rate and rhythm. No loud murmur ABDOMEN: Soft, no tenderness , guarding or rigidity, no organomegaly EXTREMITIES: Left big toe with evidence of ingrowing toenail with some swelling and minimal redness no purulent drainage SKIN: No rash, no masses palpable. NEUROLOGICAL: The patient is awake, alert, oriented x2, mood and affect normal. Results CBC & Chem 7: 10/14/19 12:10 10/14/19 12:10 Labs: Abnormal Lab Results - Last 24 Hours (Table) 10/14/19 10/14/19 Range/Units 12:10 12:10 Hgb 11.2 L (11.4-16.0) gm/dL RDW 16.3 H (11.5-15.5) % ESR 67 H (0-20) mm/hr BUN 20 H (7-17) mg/dL Glucose 201 H (74-99) mg/dL C-Reactive Protein 50.7 H (<10.0) mg/L Assessment and Plan Assessment: 1-patient with left big toe cellulitis likely from ingrowing toenail clinic suspicion of for underlying deep infection was no evidence of any purulent drainage or any suspicious for bony involvement on the basis of the x-rays and clinically 2-patient with penicillin ALLERGY that would limit the number of antibiotic safe to use however her ALLERGY was a rash and no anaphylaxis (1) Cellulitis, toe Current Visit: Yes Status: Acute Code(s): L03.039 - CELLULITIS OF UNSPECIFIED TOE SNOMED Code(s): 04308917 (2) Diabetic foot ulcer Current Visit: Yes Status: Acute Code(s): E11.621 - TYPE 2 DIABETES MELLITUS WITH FOOT ULCER; L97.509 - NON-PRESSURE CHRONIC ULCER OTH PRT UNSP FOOT W UNSP SEVERITY SNOMED Code(s): 299660908 Plan: 1- discontinue the Levaquin 2-cefazolin 2 g every 8 hours We will follow on clinical condition and cultures to further adjust medication if needed Thank you for this consultation will follow this patient with you Time with Patient: Greater than 30
[2019-10-15] MEDS: SODIUM CHLORIDE 0.9% 1,000 ML IV SCH ×3 (03:50→15:52)
[2019-10-15] MEDS: ACETAMINOPHEN TAB 500 MG TAB PO PRN (04:39)
[2019-10-15 07:11] LABS: Glucose,Whole Blood 211 mg/dL (75-99)
[2019-10-15] MEDS: INSULIN ASPART (NovoLOG) 100 UNIT/ML VIAL SQ SCH ×4 (08:01→21:39)
[2019-10-15] MEDS: ASPIRIN 81 MG PO SCH (08:02)
[2019-10-15] MEDS: ATORVASTATIN 40 MG TAB PO SCH (08:02)
[2019-10-15] MEDS: amLODIPine 10 MG TAB PO SCH (08:02)
[2019-10-15] MEDS: ISOSORBIDE MONONITRATE ER 30 MG TAB.ER.24H PO SCH (08:02)
[2019-10-15] MEDS: LOSARTAN 50 MG TAB PO SCH (08:02)
[2019-10-15] MEDS: PANTOPRAZOLE 40 MG TABLET PO SCH (08:02)
[2019-10-15] MEDS: PIOGLITAZONE 30 MG TAB PO SCH (08:02)
[2019-10-15] MEDS: METOPROLOL TARTRATE 50 MG TAB PO SCH ×2 (08:02→21:39)
[2019-10-15 08:45] LABS: Basophils % (A) 1 %; Eosinophils # (A) 0.1 k/uL (0-0.7); Eosinophils % (A) 1 %; HCT 34.2 % (34.0-46.0); HGB 11.1 gm/dL (11.4-16.0); Lymphocytes % (A) 15 %; MCH 27.6 pg (25.0-35.0); MCHC 32.4 g/dL (31.0-37.0); MCV 85.3 fL (80.0-100.0); Mean Platelet Volume 7.2; Monocytes # (A) 0.3 k/uL (0-1.0); Monocytes % (A) 5 %; Neutrophils # (A) 5.1 k/uL (1.3-7.7); Neutrophils % (A) 77 %; Platelet Count 204 k/uL (150-450); RBC 4.02 m/uL (3.80-5.40); WBC 6.6 k/uL (3.8-10.6)
--- NOTE | 2019-10-15 12:03 | P.PN ---
Subjective Progress Note Date: 10/15/19 Patient seen and examined sitting up in a recliner. Patient states he is being discharged home today. She denies any changes through the night, any fevers or chills. Objective - Vital Signs Vital signs: Vital Signs Temp 98.7 F 10/15/19 04:45 Pulse 97 10/15/19 08:00 Resp 20 10/15/19 08:00 BP 165/80 10/15/19 04:45 Pulse Ox 97 10/15/19 04:45 Intake & Output 10/14/19 10/15/19 10/15/19 18:59 06:59 18:59 Intake Total 400 Balance 400 Weight 70.76 kg Intake: Oral 400 Other: Voiding Method Diaper Bedpan Incontinent Diaper Incontinent # Voids 2 - Exam General appearance: The patient is alert, in no acute distress. HET: Head is normocephalic and atraumatic. Neck: Supple without lymphadenopathy. Trachea midline. Heart: S1 S2. Regular rate and rhythm. Lungs: No crackles or wheezes are heard. Extremities: Normal skin color and turgor. No cyanosis, rash, ulceration, clubbing, or edema. Radial and pedal pulses are 2/4 bilaterally. Left foot great toe with cellulitis along the nailbed, with scabbing along the left medial nail with no drainage. Neurological: No focal deficits. Bilateral lower extremity neuropathy. - Labs CBC & Chem 7: 10/15/19 08:15 10/14/19 12:10 Labs: Abnormal Lab Results - Last 24 Hours (Table) 10/14/19 10/14/19 10/14/19 Range/Units 12:10 12:10 17:28 Hgb 11.2 L (11.4-16.0) gm/dL RDW 16.3 H (11.5-15.5) % ESR 67 H (0-20) mm/hr BUN 20 H (7-17) mg/dL Glucose 201 H (74-99) mg/dL POC Glucose (mg/dL) 141 H (75-99) mg/dL C-Reactive Protein 50.7 H (<10.0) mg/L 10/14/19 10/15/19 10/15/19 Range/Units 20:02 07:09 08:15 Hgb 11.1 L (11.4-16.0) gm/dL RDW 16.0 H (11.5-15.5) % ESR (0-20) mm/hr BUN (7-17) mg/dL Glucose (74-99) mg/dL POC Glucose (mg/dL) 142 H 211 H (75-99) mg/dL C-Reactive Protein (<10.0) mg/L Microbiology - Last 24 Hours (Table) 10/14/19 12:10 Gram Stain - Preliminary Toe - Right First Wound Culture - Preliminary Assessment and Plan Assessment: #1 cellulitis of the left great toe, likely related to ingrown toenail #2 diabetic foot uler #3 diabetes mellitus #4 past history CVA/TIA with residual left-sided weakness #5 hypertension #6 hyperlipidemia Plan: Discussed patient with Dr. Seth. Patient is being discharged to extended care facility today. Patient has PT and DP palpable pulses to bilateral lower extremities. There is no indication for any vascular surgical intervention. We will sign off for now, please don't hesitate to contact us in the future if needed. The above dictated assessment and findings were discussed with Dr. Seth. The impression and plan of care have been directed as dictated.
[2019-10-15 12:05] LABS: Glucose,Whole Blood 157 mg/dL (75-99)
--- NOTE | 2019-10-15 13:12 | P.HPIM ---
History of Present Illness H&P Date: 10/15/19 Chief Complaint: Wound HISTORY AND PHYSICAL AND DISCHARGE SUMMARY: This is an 84-year-old female patient of Dr. 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 Patient was sent in from her physician's office due to a wound to the left big toe and concerned that her sed rate was elevated at 70. Patient was started on doxycycline and apparently a culture was obtained. Patient has underlying dementia as well and is a very poor historian. Patient came into [facility] emergency center for evaluation. X-ray of the left foot did not show any bony erosion. WBC 7.2, hemoglobin 11.2, platelet count 211. Electrolytes normal, BUN 20 creatinine 0.83. Initial blood sugar 201. Lactic acid 1.5. C-reactive protein 50.7. Liver function tests were normal. Patient was started on Levaquin due to penicillin ALLERGY and admitted to the [facility] floor. Patient has been seen in consultation by infectious disease and antibiotics were transitioned to Kefzol. Patient is also been seen by vascular surgery with no plan for any intervention. Review of Systems Constitutional: Denies chills, Denies fatigue, Denies fever, Denies lethargy, D enies malaise, Denies poor appetite Eyes: denies blurred vision, denies pain Ears, nose, mouth and throat: Denies headache, Denies sore throat, Denies vertigo Cardiovascular: Denies chest pain, Denies edema, Denies leg edema, Denies lightheadedness, Denies shortness of breath Respiratory: Denies cough, Denies cough with sputum Gastrointestinal: Denies abdominal pain, Denies diarrhea, Denies loss of appetite, Denies nausea, Denies vomiting Genitourinary: Denies dysuria Musculoskeletal: Reports muscle weakness, Denies myalgias Integumentary: Reports wounds, Denies pruritus, Denies rash Neurological: Denies numbness, Denies weakness Psychiatric: Denies anxiety, Denies depression Endocrine: Denies fatigue, Denies weight change Past Medical History Past Medical History: CVA/TIA, Diabetes Mellitus, GERD/Reflux, Hyperlipidemia, Hypertension, Liver Disease Additional Past Medical History / Comment(s): 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 History of Any Multi-Drug Resistant Organisms: None Reported Past Surgical History: Appendectomy, Hysterectomy, Joint Replacement, Orthopedic Surgery Additional Past Surgical History / Comment(s): R shoulder open surgery, R total knee replacement, R total hip replacement, bilateral wrist carpal tunnel releases, colonoscopy Past Anesthesia/Blood Transfusion Reactions: No Reported Reaction Past Psychological History: No Psychological Hx Reported Smoking Status: Former smoker Past Alcohol Use History: None Reported Past Drug Use History: None Reported - Past Family History Father Family Medical History: Myocardial Infarction ([place]) Additional Family Medical History / Comment(s): father from issues associated with alcoholism Mother Family Medical History: CVA/TIA, Myocardial Infarction ([place]) Additional Family Medical History / Comment(s): Mother at age 90 from myocardial infarction. Sister(s) Family Medical History: Diabetes Mellitus Daughter(s) Additional Family Medical History / Comment(s): Patient states she has 8 children with no major medical problems. Medications and Allergies Home Medications Medication Instructions Recorded Confirmed Type Losartan Potassium 100 mg PO DAILY 07/25/18 10/14/19 History Metoprolol Tartrate [Lopressor] 50 mg PO BID 07/25/18 10/14/19 History Omeprazole 20 mg PO DAILY 07/25/18 10/14/19 History amLODIPine [Norvasc] 10 mg PO DAILY 02/27/19 10/14/19 History Furosemide [Lasix] 20 mg PO DAILY PRN 04/06/19 10/14/19 History ALPRAZolam [Xanax] 0.25 mg PO HS PRN #3 tab 04/10/19 10/14/19 Rx Acetaminophen [Tylenol] 500 mg PO Q4-6H PRN 09/10/19 10/14/19 History Aspirin EC [Ecotrin Low Dose] 81 mg PO DAILY 09/10/19 10/14/19 History Atorvastatin [Lipitor] 40 mg PO DAILY 09/10/19 10/14/19 History Doxylamine Succinate [Unisom] 25 mg PO HS 09/10/19 10/14/19 History Isosorbide Mononitrate ER [Imdur] 30 mg PO DAILY 09/10/19 10/14/19 History Pioglitazone [Actos] 30 mg PO DAILY 09/10/19 10/14/19 History Sertraline [Zoloft] 50 mg PO HS 09/10/19 10/14/19 History Doxycycline Hyclate 100 mg PO BID 10/14/19 10/14/19 History Allergies Allergy/AdvReac Type Severity Reaction Status Date / Time codeine Allergy Unknown Verified 10/14/19 12:13 Penicillins Allergy Rash/Hives Verified 10/14/19 12:13 Physical Exam Vitals: Vital Signs Temp Pulse Pulse Resp BP BP Pulse Ox 10/15/19 08:00 97 20 10/15/19 04:45 98.7 F 97 20 165/80 97 10/14/19 21:23 98.1 F 92 20 131/69 96 10/14/19 17:05 98.8 F 85 18 130/89 98 10/14/19 11:19 98.5 F 79 20 128/61 98 Intake and Output 10/14/19 10/15/19 10/15/19 22:59 06:59 14:59 Intake Total 300 100 Balance 300 100 Intake: Oral 300 100 Other: Voiding Method Diaper Bedpan Incontinent Diaper Incontinent # Voids 1 2 Weight 70.76 kg Gen: This is an 84-year-old female. Patient is sitting in a recliner with legs elevated. She appears to be in no acute distress. HEENT: Head is atraumatic, normocephalic. Pupils equal, round. Sclerae is anicteric. NECK: Supple. No JVD. No lymphadenopathy. No thyromegaly. LUNGS: Clear to auscultation. No wheezes or rhonchi. No intercostal retract ions. HEART: Regular rate and rhythm. No murmur. ABDOMEN: Soft. Bowel sounds are present. No masses. No tenderness. EXTREMITIES: No pedal edema. No calf tenderness. Dorsalis pedis palpable bilaterally. There is minimal redness and swelling along the left great toenail bed on the medial side. No significant drainage. NEUROLOGICAL: Patient is awake, alert and oriented to person and place. Cranial nerves 2 through 12 are grossly intact. Patient has poor historian. Results CBC & Chem 7: 10/15/19 08:15 10/14/19 12:10 Labs: Abnormal Lab Results - Last 24 Hours (Table) 10/14/19 10/14/19 10/14/19 Range/Units 12:10 12:10 17:28 Hgb 11.2 L (11.4-16.0) gm/dL RDW 16.3 H (11.5-15.5) % ESR 67 H (0-20) mm/hr BUN 20 H (7-17) mg/dL Glucose 201 H (74-99) mg/dL POC Glucose (mg/dL) 141 H (75-99) mg/dL C-Reactive Protein 50.7 H (<10.0) mg/L 10/14/19 10/15/19 10/15/19 Range/Units 20:02 07:09 08:15 Hgb 11.1 L (11.4-16.0) gm/dL RDW 16.0 H (11.5-15.5) % ESR (0-20) mm/hr BUN (7-17) mg/dL Glucose (74-99) mg/dL POC Glucose (mg/dL) 142 H 211 H (75-99) mg/dL C-Reactive Protein (<10.0) mg/L Microbiology - Last 24 Hours (Table) 10/14/19 12:10 Gram Stain - Preliminary Toe - Right First Wound Culture - Preliminary Thrombosis Risk Factor Assmnt - DVT/VTE Prophylaxis DVT/VTE Prophylaxis: Pharmacologic Prophylaxis ordered - Choose All That Apply Any of the Below Risk Factors Present?: Yes Other Risk Factors: Yes Each Risk Factor Represents 3 Points: Age 75 years or older Thrombosis Risk Factor Assessment Total Risk Factor Score: 3 Thrombosis Risk Factor Assessment Level: Moderate Risk Assessment and Plan Plan: 1. Left great toe cellulitis. Patient is currently on Kefzol. Consults with infectious disease and vascular surgery appreciated. 2. Diabetes mellitus type 2. Continue Actos 30 mg daily, NovoLog scale before meals and at bedtime. 3. Hypertension. Continue Norvasc 10 mg daily, Cozaar 100 mg daily, Lopressor 50 mg twice daily. 4. Hyperlipidemia. Continue atorvastatin 40 mg daily 5. Gastroesophageal reflux disease. 6. History of CVA, old right parietal infarct with residual left-sided weakness, stable. No new symptoms 7. Generalized anxiety disorder. Continue Xanax 0.25 mg at bedtime as needed. 8. Alzheimer's dementia, stable. 9. Recurrent depression. Continue Zoloft 50 mg at bedtime. 10. DVT prophylaxis. Lovenox. Patient will be admitted to the hospital for a minimum of 2 night stay. Discharge plan: [facility] once insurance authorization has been obtained. Impression and plan of care have been directed as dictated by the signing physician. Marley Dow nurse practitioner acting as scribe for signing physician.
--- NOTE | 2019-10-15 13:32 | P.DS ---
Providers Date of admission: 10/14/19 12:55 Expected date of discharge: 10/16/19 Attending physician: Kelly Cronin Consults: 10/14/19 12:55 Consult Physician Urgent Consulting Provider: Jose Francisco Guerrero Consult Reason/Comments: Diabetic foot ulcer with cellulitis Do you want consulting provider notified?: Yes 10/14/19 13:44 Consult Physician Routine Consulting Provider: Brittany Randle Consult Reason/Comments: left toe infection Do you want consulting provider notified?: Yes Primary care physician: Celi Yuan [facility] Course: This is an 84-year-old female patient of Dr. 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 Patient was sent in from her physician's office due to a wound to the left big toe and concerned that her sed rate was elevated at 70. Patient was started on doxycycline and apparently a culture was obtained. Patient has underlying dementia as well and is a very poor historian. Patient came into [facility] emergency center for evaluation. X-ray of the left foot did not show any bony erosion. WBC 7.2, hemoglobin 11.2, platelet count 211. Electrolytes normal, BUN 20 creatinine 0.83. Initial blood sugar 201. Lactic acid 1.5. C-reactive protein 50.7. Liver function tests were normal. Patient was started on Levaquin due to penicillin ALLERGY and admitted to the [facility] floor. Patient has been seen in consultation by infectious disease and antibiotics were transitioned to Kefzol. Patient is also been seen by vascular surgery with no plan for any intervention. Social work is waiting for insurance authorization for subacute rehab at [facility]. PT and OT have evaluated the patient. Patient will be discharged [facility] once all arrangements are completed. 10/16: Patient has been afebrile, heart rate 97, blood pressure 155/70, pulse ox 95% on room air. Blood sugars are running between 150s to 176. Insurance authorization has been obtained this morning patient will be discharged [facility] under the care of Dr. Yuan in stable condition today. Discharge diagnoses: 1. Left great toe cellulitis. 2. Diabetes mellitus type 2. 3. Hypertension. 4. Hyperlipidemia. 5. Gastroesophageal reflux disease. 6. History of CVA, old right parietal infarct with residual left-sided weakness, stable. No new symptoms 7. Generalized anxiety disorder. 8. Alzheimer's dementia, stable. 9. Recurrent depression. Discharge plan: [facility] Impression and plan of care have been directed as dictated by the signing physician. Marley Dow nurse practitioner acting as scribe for signing physician. Patient Condition at Discharge: Good Plan - Discharge Summary Discharge Rx Participant: No New Discharge Prescriptions: Continue Omeprazole 20 mg PO DAILY Metoprolol Tartrate [Lopressor] 50 mg PO BID Losartan Potassium 100 mg PO DAILY amLODIPine [Norvasc] 10 mg PO DAILY Furosemide [Lasix] 20 mg PO DAILY PRN PRN Reason: Edema Acetaminophen [Tylenol] 500 mg PO Q4-6H PRN PRN Reason: Pain Doxylamine Succinate [Unisom] 25 mg PO HS Atorvastatin [Lipitor] 40 mg PO DAILY Sertraline [Zoloft] 50 mg PO HS Isosorbide Mononitrate ER [Imdur] 30 mg PO DAILY Pioglitazone [Actos] 30 mg PO DAILY Aspirin EC [Ecotrin Low Dose] 81 mg PO DAILY Doxycycline Hyclate 100 mg PO BID ALPRAZolam [Xanax] 0.25 mg PO HS PRN #3 tab PRN Reason: Insomnia Discharge Medication List Losartan Potassium 100 mg PO DAILY 07/25/18 [History] Metoprolol Tartrate [Lopressor] 50 mg PO BID 07/25/18 [History] Omeprazole 20 mg PO DAILY 07/25/18 [History] amLODIPine [Norvasc] 10 mg PO DAILY 02/27/19 [History] Furosemide [Lasix] 20 mg PO DAILY PRN 04/06/19 [History] Acetaminophen [Tylenol] 500 mg PO Q4-6H PRN 09/10/19 [History] Aspirin EC [Ecotrin Low Dose] 81 mg PO DAILY 09/10/19 [History] Atorvastatin [Lipitor] 40 mg PO DAILY 09/10/19 [History] Doxylamine Succinate [Unisom] 25 mg PO HS 09/10/19 [History] Isosorbide Mononitrate ER [Imdur] 30 mg PO DAILY 09/10/19 [History] Pioglitazone [Actos] 30 mg PO DAILY 09/10/19 [History] Sertraline [Zoloft] 50 mg PO HS 09/10/19 [History] Doxycycline Hyclate 100 mg PO BID 10/14/19 [History] ALPRAZolam [Xanax] 0.25 mg PO HS PRN #3 tab 10/15/19 [Rx] Follow up Appointment(s)/Referral(s): Celi Yuan MD [Primary Care Provider] - 1 Week (at [facility]) Discharge Disposition: TRANSFER TO SNF/ECF
[2019-10-15 15:13] VITALS: BMI 28.5
[2019-10-15] MEDS ORDERED: LEVOFLOXACIN 750MG-D5W PMX 750 MG in DEXTROSE/WATER 1 150ML.BAG IVPB SCH (16:00)
--- NOTE | 2019-10-15 16:08 | PN ---
PROGRESS NOTE DATE OF SERVICE: 10/15/2019 REASON FOR FOLLOWUP: Left big toe ingrowing toenail with cellulitis. INTERVAL HISTORY: The patient is currently afebrile. She has been breathing comfortably. Denies having any chest pain or any cough. No nausea, no vomiting, no abdominal pain or any diarrhea. PHYSICAL EXAMINATION: Blood pressure 134/51 with a pulse of 83, temperature 97.8. She is 97% on room air. General description is an elderly female up in the chair in no distress. RESPIRATORY SYSTEM: Unlabored breathing. Clear to auscultation anteriorly. HEART: S1, S2. Regular rate and rhythm. ABDOMEN: Soft. No tenderness. Left big toe swelling and redness have decreased. LABS: White count 6.6. Wound culture is currently pending. Blood cultures were negative. DIAGNOSTIC IMPRESSION AND PLAN: Patient with left big toe ingrowing toenail with concern about cellulitis clinically doubt deep infection. She is on cefazolin; to finish therapy with oral Keflex 500 mg t.i.d. for 10 days with close outpatient followup. MMODL / IJN: [id number] / ANDERSON
[2019-10-15 17:13] LABS: Glucose,Whole Blood 142 mg/dL (75-99)
[2019-10-15 19:08] LABS: Hemoglobin A1C 7.5 % (4.0-6.0)
[2019-10-15 20:12] LABS: Glucose,Whole Blood 176 mg/dL (75-99)
[2019-10-15] MEDS: SERTRALINE 50 MG TAB PO SCH (21:39)
[2019-10-15] MEDS: DOXYLAMINE SUCCINATE 25 MG PO SCH (22:56)
[2019-10-16] MEDS: SODIUM CHLORIDE 0.9% 1,000 ML IV SCH ×2 (05:36→08:56)
[2019-10-16 07:12] LABS: Glucose,Whole Blood 152 mg/dL (75-99)
[2019-10-16 08:03] VITALS: BP 155/78; PULSE 97; RESP 19; TEMP 98.1
[2019-10-16] MEDS ORDERED: ENOXAPARIN 40 MG/0.4 ML SYRINGE SQ SCH (09:00)
[2019-10-16] MEDS: amLODIPine 10 MG TAB PO SCH (09:14)
[2019-10-16] MEDS: METOPROLOL TARTRATE 50 MG TAB PO SCH (09:14)
[2019-10-16] MEDS: LOSARTAN 50 MG TAB PO SCH (09:14)
[2019-10-16] MEDS: PANTOPRAZOLE 40 MG TABLET PO SCH (09:14)
[2019-10-16] MEDS: ISOSORBIDE MONONITRATE ER 30 MG TAB.ER.24H PO SCH (09:14)
[2019-10-16] MEDS: ASPIRIN 81 MG PO SCH (09:14)
[2019-10-16] MEDS: INSULIN ASPART (NovoLOG) 100 UNIT/ML VIAL SQ SCH (09:14)
[2019-10-16] MEDS: ATORVASTATIN 40 MG TAB PO SCH (09:14)
[2019-10-16] MEDS: PIOGLITAZONE 30 MG TAB PO SCH (09:14)
--- NOTE | 2019-10-19 16:07 | CDI ---
Documentation Clarification Form Date: 10/19/19 From: Blank Cole, Phone: If you have a question about this query, please contact Dahlia Hendricks, Directory Compiler at [phone] between 8am and 5pm. Admit Date: 10/14/19 Discharge Date:10/16/19 Patient Name: Anisha Antoine Visit Number: [id number] ATTENTION: The Clinical Documentation Specialists (CDI) and [facility] Coding Staff appreciate your assistance in clarifying documentation. Please respond to the clarification below the line at the bottom and electronically sign. The CDI & [facility] Coding staff will review the response and follow-up if needed. Please note: Queries are made part of the Legal Health Record. If you have any questions, please contact the author of this message via ITS. Dear Dr. Cronin Cellulitis of the left great toe is documented in the ED Note, H&P, Dr. Guerrero's progress note & consult note, Dr. Rnadle's consult note and discharge summary. Patient history/risk factors: Diabetes, ingrown toenail, left great toe ulcer Clinical Indicators: Left big toe swelling and redness Radiology: No suspicious changes to suggest acute osteomyelitis. Labs: Glucose 201, c-reactive protein 50.7, Vital Signs: T. 98.5, P. 79, R. 20, BP 128/61 Treatment: Medication: IV Cefazolin In your professional opinion, can cellulitis be further specified as one of the following? Associated with diabetes Not associated with diabetes Other: Unable to determine associated with DM MTDD
== END 2019-10-16 10:48 ==
LOC: EC 11:10 → INTOOBSV 12:55 → 6NMEDSUR 12:55 → UNDODISIN 10-16 10:48
PROVIDERS: ADMIT Internal Medicine; ATTEND Internal Medicine
DX: E11.628 Type 2 diabetes mellitus with other skin complications (principal); L03.032 Cellulitis of left toe; E11.621 Type 2 diabetes mellitus with foot ulcer; L97.529 Non-pressure chronic ulcer of other part of left foot with unspecified severity; E11.42 Type 2 diabetes mellitus with diabetic polyneuropathy; I10 Essential (primary) hypertension; E78.5 Hyperlipidemia, unspecified; K21.9 Gastro-esophageal reflux disease without esophagitis; I69.354 Hemiplegia and hemiparesis following cerebral infarction affecting left non-dominant side; F41.1 Generalized anxiety disorder; G30.9 Alzheimer's disease, unspecified; F02.80 Dementia in other diseases classified elsewhere, unspecified severity, without behavioral disturbance, psychotic disturbance, mood disturbance, and anxiety; F33.9 Major depressive disorder, recurrent, unspecified; K76.9 Liver disease, unspecified; R26.9 Unspecified abnormalities of gait and mobility; G47.00 Insomnia, unspecified; Z79.899 Other long term (current) drug therapy; Z79.82 Long term (current) use of aspirin; Z79.84 Long term (current) use of oral hypoglycemic drugs; Z88.5 Allergy status to narcotic agent; Z88.0 Allergy status to penicillin; Z87.11 Personal history of peptic ulcer disease; Z87.19 Personal history of other diseases of the digestive system; Z87.440 Personal history of urinary (tract) infections; Z87.448 Personal history of other diseases of urinary system; Z90.49 Acquired absence of other specified parts of digestive tract; Z90.710 Acquired absence of both cervix and uterus; Z96.651 Presence of right artificial knee joint; Z96.641 Presence of right artificial hip joint; Z98.890 Other specified postprocedural states; Z87.891 Personal history of nicotine dependence; Z86.69 Personal history of other diseases of the nervous system and sense organs; Z82.49 Family history of ischemic heart disease and other diseases of the circulatory system; Z81.1 Family history of alcohol abuse and dependence; Z82.3 Family history of stroke; Z83.3 Family history of diabetes mellitus
CPT/HCPCS: 96361; 96366 ×4; 96367; 96365; 99284; 36415; 97162; 97166; 80053; 85652; 83605; 85025 ×2; 85610; 85730; 86140; 87040; 87070; 87205; 83036; 73630; G0378 ×3; J0690 ×3; J1650; J1956

== ENCOUNTER 2020-04-22 01:42 | Observation (INO) | payer MEDICARE ==
--- NOTE | 2020-04-22 01:45 | ED ---
Recheck HPI - General Stated Complaint: Covid workup Time Seen by Provider: 04/22/20 01:44 Source: RN notes reviewed, old records reviewed Mode of arrival: EMS Limitations: no limitations - History of Present Illness Initial Comments: This is an 84 female to the ED co abnormal outpatient lab test, patient has significant recent medical history of positive COronavirus evposuire as well as positive test. History of diabetes, htn, hygh cholesterol. Patient has no new sob no fever, does have positive esposure as ECF. Complaint: abnormal lab (positive COVID test) -: unknown Returns Today for: Called Because of Abnormal Lab/Test (positive COVID test) Symptoms Since Prior Visit: no new symptoms Context: called for abnormal lab result Associated Symptoms: none - Related Data Home Medications Medication Instructions Recorded Confirmed Losartan Potassium 100 mg PO DAILY 07/25/18 10/14/19 Metoprolol Tartrate [Lopressor] 50 mg PO BID 07/25/18 10/14/19 Omeprazole 20 mg PO DAILY 07/25/18 10/14/19 amLODIPine [Norvasc] 10 mg PO DAILY 02/27/19 10/14/19 Furosemide [Lasix] 20 mg PO DAILY PRN 04/06/19 10/14/19 Acetaminophen [Tylenol] 500 mg PO Q4-6H PRN 09/10/19 10/14/19 Aspirin EC [Ecotrin Low Dose] 81 mg PO DAILY 09/10/19 10/14/19 Atorvastatin [Lipitor] 40 mg PO DAILY 09/10/19 10/14/19 Isosorbide Mononitrate ER [Imdur] 30 mg PO DAILY 09/10/19 10/14/19 Pioglitazone [Actos] 30 mg PO DAILY 09/10/19 10/14/19 Sertraline [Zoloft] 50 mg PO HS 09/10/19 10/14/19 Doxycycline Hyclate 100 mg PO BID 10/14/19 10/14/19 Previous Rx's Medication Instructions Recorded ALPRAZolam [Xanax] 0.25 mg PO HS PRN #3 tab 10/15/19 Allergies Allergy/AdvReac Type Severity Reaction Status Date / Time codeine Allergy Unknown Verified 10/14/19 12:13 Penicillins Allergy Rash/Hives Verified 10/14/19 12:13 Review of Systems ROS Statement: Those systems with pertinent positive or pertinent negative responses have been documented in the HPI. ROS Other: All systems not noted in ROS Statement are negative. Past Medical History Past Medical History: CVA/TIA, Diabetes Mellitus, GERD/Reflux, Hyperlipidemia, Hypertension, Liver Disease Additional Past Medical History / Comment(s): 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 History of Any Multi-Drug Resistant Organisms: None Reported Past Surgical History: Appendectomy, Hysterectomy, Joint Replacement, Orthopedic Surgery Additional Past Surgical History / Comment(s): R shoulder open surgery, R total knee replacement, R total hip replacement, bilateral wrist carpal tunnel releases, colonoscopy Past Anesthesia/Blood Transfusion Reactions: No Reported Reaction Past Psychological History: No Psychological Hx Reported Past Alcohol Use History: None Reported Past Drug Use History: None Reported - Past Family History Father Family Medical History: Myocardial Infarction ([place]) Additional Family Medical History / Comment(s): father from issues associated with alcoholism Mother Family Medical History: CVA/TIA, Myocardial Infarction ([place]) Additional Family Medical History / Comment(s): Mother at age 90 from myocardial infarction. Sister(s) Family Medical History: Diabetes Mellitus Daughter(s) Additional Family Medical History / Comment(s): Patient states she has 8 children with no major medical problems. General Exam General appearance: alert, in no apparent distress Head exam: Present: atraumatic, normocephalic, normal inspection Eye exam: Present: normal appearance, PERRL, EOMI. Absent: scleral icterus, conjunctival injection, periorbital swelling ENT exam: Present: normal exam, mucous membranes moist Neck exam: Present: normal inspection. Absent: tenderness, meningismus, lymphadenopathy Respiratory exam: Present: normal lung sounds bilaterally. Absent: respiratory distress, wheezes, rales, rhonchi, stridor Cardiovascular Exam: Present: regular rate, normal rhythm, normal heart sounds. Absent: systolic murmur, diastolic murmur, rubs, gallop, clicks GI/Abdominal exam: Present: soft, normal bowel sounds. Absent: distended, tenderness, guarding, rebound, rigid Extremities exam: Present: normal inspection, full ROM, normal capillary refill. Absent: tenderness, pedal edema, joint swelling, calf tenderness Back exam: Present: normal inspection Neurological exam: Present: alert, oriented X3, CN II-XII intact Psychiatric exam: Present: normal affect, normal mood Skin exam: Present: warm, dry, intact, normal color. Absent: rash Course Vital Signs 04/22/20 04/22/20 04/22/20 01:46 01:54 04:02 Temperature 98.4 F 98.2 F Pulse Rate 74 72 Respiratory 20 18 18 Rate Blood Pressure 149/57 129/64 O2 Sat by Pulse 96 96 Oximetry - Reevaluation(s) Reevaluation #1: 04/22/20 04:20 Medical record is reviewed Reevaluation #2: 04/22/20 04:20 Patient's in no acute distress Reevaluation #3: 04/22/20 04:20 Spoke patient regarding findings questions answered - Consultations Consultation #1: Spoke with Dr. Yuan who agrees to admit patient Medical Decision Making - Medical Decision Making 84 female DF for evaluation of positive Kovic testing. Patient be admitted for observation infectious disease consultation - Lab Data Result diagrams: 04/22/20 01:47 04/22/20 01:47 Lab Results 04/22/20 04/22/20 04/22/20 Range/Units 01:47 01:47 01:47 WBC 5.7 (3.8-10.6) k/uL RBC 4.09 (3.80-5.40) m/uL Hgb 11.6 (11.4-16.0) gm/dL Hct 36.3 (34.0-46.0) % MCV 88.8 (80.0-100.0) fL MCH 28.4 (25.0-35.0) pg MCHC 32.0 (31.0-37.0) g/dL RDW 16.0 H (11.5-15.5) % Plt Count 198 (150-450) k/uL Neutrophils % 52 % Lymphocytes % 37 % Monocytes % 6 % Eosinophils % 4 % Basophils % 1 % Neutrophils # 3.0 (1.3-7.7) k/uL Lymphocytes # 2.1 (1.0-4.8) k/uL Monocytes # 0.3 (0-1.0) k/uL Eosinophils # 0.2 (0-0.7) k/uL Basophils # 0.0 (0-0.2) k/uL Anisocytosis Slight PT 10.2 (9.0-12.0) sec INR 1.0 (<1.2) APTT 22.2 (22.0-30.0) sec D-Dimer 1.30 H (<0.60) mg/L FEU Sodium 138 (137-145) mmol/L Potassium 4.6 (3.5-5.1) mmol/L Chloride 106 (98-107) mmol/L Carbon Dioxide 26 (22-30) mmol/L Anion Gap 6 mmol/L BUN 31 H (7-17) mg/dL Creatinine 0.83 (0.52-1.04) mg/dL Est GFR (CKD-EPI)AfAm 75 (>60 ml/min/1.73 sqM) Est GFR (CKD-EPI)NonAf 65 (>60 ml/min/1.73 sqM) Glucose 100 H (74-99) mg/dL Plasma Lactic Acid Narayan (0.7-2.0) mmol/L Calcium 9.2 (8.4-10.2) mg/dL Magnesium 2.2 (1.6-2.3) mg/dL Total Bilirubin 0.3 (0.2-1.3) mg/dL AST 21 (14-36) U/L ALT 12 (4-34) U/L Alkaline Phosphatase 69 (38-126) U/L Lactate Dehydrogenase 391 (313-618) U/L C-Reactive Protein <5.0 (<10.0) mg/L Total Protein 6.5 (6.3-8.2) g/dL Albumin 3.5 (3.5-5.0) g/dL 04/22/20 Range/Units 01:47 WBC (3.8-10.6) k/uL RBC (3.80-5.40) m/uL Hgb (11.4-16.0) gm/dL Hct (34.0-46.0) % MCV (80.0-100.0) fL MCH (25.0-35.0) pg MCHC (31.0-37.0) g/dL RDW (11.5-15.5) % Plt Count (150-450) k/uL Neutrophils % % Lymphocytes % % Monocytes % % Eosinophils % % Basophils % % Neutrophils # (1.3-7.7) k/uL Lymphocytes # (1.0-4.8) k/uL Monocytes # (0-1.0) k/uL Eosinophils # (0-0.7) k/uL Basophils # (0-0.2) k/uL Anisocytosis PT (9.0-12.0) sec INR (<1.2) APTT (22.0-30.0) sec D-Dimer (<0.60) mg/L FEU Sodium (137-145) mmol/L Potassium (3.5-5.1) mmol/L Chloride (98-107) mmol/L Carbon Dioxide (22-30) mmol/L Anion Gap mmol/L BUN (7-17) mg/dL Creatinine (0.52-1.04) mg/dL Est GFR (CKD-EPI)AfAm (>60 ml/min/1.73 sqM) Est GFR (CKD-EPI)NonAf (>60 ml/min/1.73 sqM) Glucose (74-99) mg/dL Plasma Lactic Acid Narayan 1.4 (0.7-2.0) mmol/L Calcium (8.4-10.2) mg/dL Magnesium (1.6-2.3) mg/dL Total Bilirubin (0.2-1.3) mg/dL AST (14-36) U/L ALT (4-34) U/L Alkaline Phosphatase (38-126) U/L Lactate Dehydrogenase (313-618) U/L C-Reactive Protein (<10.0) mg/L Total Protein (6.3-8.2) g/dL Albumin (3.5-5.0) g/dL - EKG Data -: EKG Interpreted by Me (EKG is sinus rhythm 73 ND 186 QRS 76 QTc 405) - Radiology Data Radiology results: report reviewed (Chest x-rays negative for acute disease), image reviewed Disposition Clinical Impression: COVID-19 Disposition: ADMITTED IP TO THIS [facility] Condition: Fair Is patient prescribed a controlled substance at d/c from ED?: No
[2020-04-22 02:11] LABS: Anisocytosis Slight; Basophils % (A) 1 %; Eosinophils # (A) 0.2 k/uL (0-0.7); Eosinophils % (A) 4 %; HCT 36.3 % (34.0-46.0); HGB 11.6 gm/dL (11.4-16.0); Lymphocytes # (A) 2.1 k/uL (1.0-4.8); Lymphocytes % (A) 37 %; MCH 28.4 pg (25.0-35.0); MCV 88.8 fL (80.0-100.0); Mean Platelet Volume 6.9; Monocytes # (A) 0.3 k/uL (0-1.0); Monocytes % (A) 6 %; Neutrophils % (A) 52 %; Platelet Count 198 k/uL (150-450); RBC 4.09 m/uL (3.80-5.40); WBC 5.7 k/uL (3.8-10.6)
[2020-04-22 02:26] LABS: ALT 12 U/L (4-34); AST 21 U/L (14-36); African American GFR (CKD) 75 (>60 ml/min/1.73 sqM); Albumin 3.5 g/dL (3.5-5.0); Alkaline Phosphatase 69 U/L (38-126); Anion Gap 6 mmol/L; Blood Urea Nitrogen 31 mg/dL (7-17); C Reactive Protein <5.0 mg/L (<10.0); Calcium 9.2 mg/dL (8.4-10.2); Carbon Dioxide 26 mmol/L (22-30); Chloride 106 mmol/L (98-107); Glucose 100 mg/dL (74-99); LDH 391 U/L (313-618); Magnesium 2.2 mg/dL (1.6-2.3); Non-African American GFR(CKD) 65 (>60 ml/min/1.73 sqM); Potassium 4.6 mmol/L (3.5-5.1); Sodium 138 mmol/L (137-145); Total Bilirubin 0.3 mg/dL (0.2-1.3); Total Protein 6.5 g/dL (6.3-8.2)
[2020-04-22 02:28] LABS: Partial Thromboplastin Time 22.2 sec (22.0-30.0); Prothrombin Time 10.2 sec (9.0-12.0)
--- NOTE | 2020-04-22 02:32 | XR ---
EXAMINATION TYPE: XR chest 1V portable DATE OF EXAM: 04/22/2020 COMPARISON: 09/10/2019 HISTORY: Weakness TECHNIQUE: Single view FINDINGS: There is no heart failure nor confluent pneumonic infiltrate. Costophrenic angles are clear . There are no hilar masses. Thoracic aorta shows mild atheromatous change. Heart size is normal. Bon y thorax is intact. IMPRESSION: No active cardiopulmonary disease. No adverse change. Normal heart. There is improved ins piration compared to old exam.
[2020-04-22 02:36] LABS: D-Dimer 1.3 mg/L FEU (<0.60)
[2020-04-22] MEDS: SODIUM CHLORIDE 0.9% 1,000 ML IV SCH (05:16)
[2020-04-22 11:08] LABS: Ferritin 18.3 ng/mL (10.0-291.0)
[2020-04-22] MEDS ORDERED: ACETAMINOPHEN TAB 500 MG TAB PO PRN (17:05)
[2020-04-22] MEDS ORDERED: bisacodyL 10 MG SUPP RECTAL PRN (17:05)
[2020-04-22] MEDS ORDERED: FUROSEMIDE 20 MG TAB PO PRN (17:05)
[2020-04-22] MEDS ORDERED: MAGNESIUM HYDROXIDE 2,400 MG/10 ML CUP PO PRN (17:05)
[2020-04-22] MEDS ORDERED: SENNOSIDES 8.6 MG TAB PO SCH (21:00)
[2020-04-22] MEDS ORDERED: ATORVASTATIN 40 MG TAB PO SCH (21:00)
[2020-04-22] MEDS ORDERED: SERTRALINE 25 MG TAB PO SCH (21:00)
--- NOTE | 2020-04-22 23:10 | P.CONS ---
History of Present Illness - Reason for Consult Consult date: 04/22/20 Positive Covid19 test Requesting physician: Celi Yuan - Chief Complaint Positive test x one day - History of Present Illness Patient is 84-year-old female who is currently a resident of a local correction apparently the correction has 1 employee that came back positive for Covid19, subsequently on the resident has been tested and the patient came back positive subsequent the patient has been sent to [facility] ER for further evaluation patient currently denies having any fever or any chills, the patient denies having any URI symptoms, patient denies having any chest pain shortness of breath or cough no nausea no vomiting no abdominal pain no diarrhea on arrival to the area patient has been afebrile patient did have a normal white count no lymphopenia liver enzymes are normal CRP is normal chest x-ray was negative for any acute infiltrate patient has been admitted to the hospital infectious disease consulted for further management Review of Systems Positive point has been mentioned in the HPI rest of the systems are negative Past Medical History Past Medical History: CVA/TIA, Diabetes Mellitus, GERD/Reflux, Hyperlipidemia, Hypertension, Liver Disease Additional Past Medical History / Comment(s): 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 History of Any Multi-Drug Resistant Organisms: None Reported Past Surgical History: Appendectomy, Hysterectomy, Joint Replacement, Orthopedic Surgery Additional Past Surgical History / Comment(s): R shoulder open surgery, R total knee replacement, R total hip replacement, bilateral wrist carpal tunnel releases, colonoscopy Past Anesthesia/Blood Transfusion Reactions: No Reported Reaction Past Psychological History: No Psychological Hx Reported Past Alcohol Use History: None Reported Past Drug Use History: None Reported - Past Family History Father Family Medical History: Myocardial Infarction ([place]) Additional Family Medical History / Comment(s): father from issues associated with alcoholism Mother Family Medical History: CVA/TIA, Myocardial Infarction ([place]) Additional Family Medical History / Comment(s): Mother at age 90 from myocardial infarction. Sister(s) Family Medical History: Diabetes Mellitus Daughter(s) Additional Family Medical History / Comment(s): Patient states she has 8 children with no major medical problems. Medications and Allergies Home Medications Medication Instructions Recorded Confirmed Type Losartan Potassium 100 mg PO DAILY@0800 MDD HOLD IF 07/25/18 04/22/20 History SYSTOLIC < = TO 100 Metoprolol Tartrate [Lopressor] 50 mg PO BID@0800,1700 07/25/18 04/22/20 History Furosemide [Lasix] 20 mg PO DAILY PRN 04/06/19 04/22/20 History Acetaminophen [Tylenol] 500 mg PO Q4-6H PRN 09/10/19 04/22/20 History Aspirin EC [Ecotrin Low Dose] 81 mg PO DAILY@169909/10/19 04/22/20 History Atorvastatin [Lipitor] 40 mg PO HS@209909/10/19 04/22/20 History Isosorbide Mononitrate ER [Imdur] 30 mg PO DAILY@0800 09/10/19 04/22/20 History Pioglitazone [Actos] 30 mg PO DAILY@0809/10/19 04/22/20 History Sertraline [Zoloft] 75 mg PO HS@209909/10/19 04/22/20 History Famotidine [Pepcid] 20 mg PO DAILY@79904/22/20 04/22/20 History Glimepiride [Amaryl] 2 mg PO DAILY@79904/22/20 04/22/20 History Lactose-Reduced Food [Ensure Plus] 1 can PO BID@0800,1700 04/22/20 04/22/20 History Magnesium Hydroxide [Milk of 7,200 mg PO DAILY PRN 04/22/20 04/22/20 History Magnesia] Na Phos,M-B/Na Phos,Di-Ba [Fleet 133 ml RECTAL DAILY PRN 04/22/20 04/22/20 Hist ory Adult] Sennosides [Senokot] 17.2 mg PO HS@209904/22/20 04/22/20 History amLODIPine [Norvasc] 5 mg PO DAILY@0800 04/22/20 04/22/20 History bisacodyL [Dulcolax] 10 mg RECTAL DAILY PRN 04/22/20 04/22/20 History Allergies Allergy/AdvReac Type Severity Reaction Status Date / Time codeine Allergy Unknown Verified 04/22/20 07:59 Penicillins Allergy Rash/Hives Verified 04/22/20 07:59 Physical Exam Vitals: Vital Signs Temp Pulse Pulse Resp BP BP Pulse Ox 04/22/20 08:01 97.4 F L 57 L 16 103/52 04/22/20 08:00 57 L 16 04/22/20 04:33 98.9 F 71 14 126/52 96 04/22/20 04:02 98.2 F 72 18 129/64 96 04/22/20 01:54 18 04/22/20 01:46 98.4 F 74 20 149/57 96 Intake and Output 04/21/20 04/22/20 04/22/20 22:59 06:59 14:59 Other: Voiding Method Bedpan Bedpan # Voids 1 # Bowel Movements 1 Weight 68.492 kg GENERAL DESCRIPTION: An elderly female lying in bed, no distress. No tachypnea or accessory muscle of respiration use. HEENT: Shows Pallor , no scleral icterus. Oral mucous membrane is dry. No pharyngeal erythema or thrush NECK: Trachea central, no thyromegaly. LUNGS: Unlabored breathing. Clear to auscultation anteriorly. No wheeze or crackle. HEART: S1, S2, regular rate and rhythm. No loud murmur ABDOMEN: Soft, no tenderness , guarding or rigidity, no organomegaly EXTREMITIES: No edema of feet. SKIN: No rash, no masses palpable. NEUROLOGICAL: The patient is awake, alert, oriented x2, mood and affect normal. Results CBC & Chem 7: 04/22/20 01:47 04/22/20 01:47 Labs: Abnormal Lab Results - Last 24 Hours (Table) 04/22/20 04/22/20 04/22/20 Range/Units 01:47 01:47 01:47 RDW 16.0 H (11.5-15.5) % D-Dimer 1.30 H (<0.60) mg/L FEU BUN 31 H (7-17) mg/dL Glucose 100 H (74-99) mg/dL Assessment and Plan Assessment: 1- patient was sent to the ER after the patient tested positive at the correction for Covid19, and this patient currently do not have any fever or respiratory symptoms. Did have a normal blood work and a chest x-ray is normal as well more likely representing possibly positive Covid19 testing (1) Lab test positive for detection of COVID-19 virus Current Visit: Yes Status: Acute Code(s): U07.1 - COVID-19 SNOMED Code(s): 347657040 Plan: 1- we will request for the nasopharyngeal swab for Covid19 PCR which if negative no further workup will be done 2- hold on any specific treatment towards Covid19 We will follow on clinical condition and cultures to further adjust medication if needed Thank you for this consultation will follow this patient with you Time with Patient: Greater than 30
[2020-04-23] MEDS: SODIUM CHLORIDE 0.9% 1,000 ML IV SCH (02:47)
[2020-04-23 08:00] LABS: Anisocytosis Slight; Basophils % (A) 1 %; Eosinophils # (A) 0.1 k/uL (0-0.7); Eosinophils % (A) 2 %; HCT 35.2 % (34.0-46.0); Lymphocytes % (A) 22 %; MCH 28.2 pg (25.0-35.0); MCHC 31.3 g/dL (31.0-37.0); MCV 89.9 fL (80.0-100.0); Mean Platelet Volume 7.2; Monocytes # (A) 0.3 k/uL (0-1.0); Monocytes % (A) 6 %; Neutrophils # (A) 3.2 k/uL (1.3-7.7); Neutrophils % (A) 68 %; Platelet Count 168 k/uL (150-450); RBC 3.92 m/uL (3.80-5.40); RDW 16.1 % (11.5-15.5); WBC 4.7 k/uL (3.8-10.6)
[2020-04-23] MEDS ORDERED: METOPROLOL TARTRATE 50 MG TAB PO SCH (08:00)
[2020-04-23] MEDS ORDERED: LOSARTAN 50 MG TAB PO SCH (08:00)
[2020-04-23] MEDS ORDERED: PIOGLITAZONE 30 MG TAB PO SCH (08:00)
[2020-04-23] MEDS ORDERED: GLIMEPIRIDE 2 MG TAB PO SCH (08:00)
[2020-04-23] MEDS ORDERED: NON FORMULARY DRUG (Lactose-Reduced Food [Ensure Plus] 1 CAN) PO SCH (08:00)
[2020-04-23] MEDS ORDERED: amLODIPine 5 MG TAB PO SCH (08:00)
[2020-04-23] MEDS ORDERED: ISOSORBIDE MONONITRATE ER 30 MG TAB.ER.24H PO SCH (08:00)
[2020-04-23] MEDS ORDERED: FAMOTIDINE 20 MG TAB PO SCH (08:00)
[2020-04-23 08:06] LABS: Albumin 3.4 g/dL (3.5-5.0); Calcium 9.1 mg/dL (8.4-10.2); Potassium 4.3 mmol/L (3.5-5.1); Total Bilirubin 0.5 mg/dL (0.2-1.3); Total Protein 6.3 g/dL (6.3-8.2)
[2020-04-23 08:27] VITALS: BP 152/67; PULSE 85; RESP 16; TEMP 97.8
[2020-04-23] MEDS ORDERED: ENOXAPARIN 40 MG/0.4 ML SYRINGE SQ SCH (09:00)
--- NOTE | 2020-04-23 10:11 | P.HPIM ---
History of Present Illness H&P Date: 04/22/20 Chief Complaint: COVID-19 positive test results. This is an 84-year-old female patient of mine with past medical history of diabetes mellitus type 2, CVA with left-sided weakness in June 2018 and multiple TIAs, hypertension, hyperlipidemia, gastroesophageal reflux disease, osteoarthritis, vascular dementia, has been residing at [facility] for chronic care as the patient was not able to give herself and her family struggled quite a bit with activities of daily living, patient has been doing fine over the last few months however recently where one of the aide that works midnights tested positive for coded that triggered to test old resident again at [facility] [place] and fortunately paresis. Test result came back positive for Covid 19, it was elected for the patient be transferred to the hospital for evaluation patient was totally asymptomatic had no fever or chills no sore throat no significant abnormalities, beside her baseline chronic medical conditions and she was admitted to the hospital for evaluation by ID for another 24 hours and hopefully she will be able to go back to the group home one week if okay from the administration at [facility]. Review of Systems Constitutional: Reports weakness, Denies anorexia, Denies chronic headaches, Denies chronic pain, Denies fatigue, Denies fever, Denies malaise Eyes: denies blurred vision, denies bulging eye, denies decreased vision Ears: bilateral: decreased hearing Cardiovascular: Denies chest pain, Denies decreased exercise tolerance, Denies dyspnea on exertion, Denies leg edema, Denies lightheadedness, Denies rapid heart beat, Denies shortness of breath, Denies syncope Respiratory: Denies congestion, Denies cough, Denies cough with sputum, Denies home oxygen, Denies respiratory infections, Denies sleep apnea, Denies snoring, Denies wheezing Gastrointestinal: Reports loss of appetite, Denies abdominal pain, Denies bloating, Denies BRBPR, Denies heartburn, Denies melena, Denies nausea Genitourinary: Denies dysuria, Denies hematuria Menstruation: Reports postmenopausal Musculoskeletal: Reports frequent falls, Reports gait dysfunction, Reports low back pain, Reports muscle weakness Musculoskeletal: absent: ankle pain, ankle stiffness, ankle swelling, elbow pain, elbow stiffness, elbow swelling, foot pain, foot stiffness, foot swelling, hand pain, hand stiffness, hand swelling, hip pain, hip stiffness, hip swelling, knee pain, knee stiffness, knee swelling, shoulder pain, shoulder stiffness, shoulder swelling, wrist pain, wrist stiffness, wrist swelling Integumentary: Denies pruritus, Denies rash Neurological: Reports balance difficulties, Reports confusion, Reports gait dysfunction, Reports memory loss, Reports motor disturbance, Reports paralysis, Reports sensory deficit, Reports weakness Psychiatric: Reports anxiety, Reports depression, Denies sadness/tearfulness, Denies sleep disturbances, Denies suicidal ideation Endocrine: Denies fatigue, Denies weight change Past Medical History Past Medical History: CVA/TIA, Diabetes Mellitus, GERD/Reflux, Hyperlipidemia, Hypertension, Liver Disease Additional Past Medical History / Comment(s): 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 History of Any Multi-Drug Resistant Organisms: None Reported Past Surgical History: Appendectomy, Hysterectomy, Joint Replacement, Orthopedic Surgery Additional Past Surgical History / Comment(s): R shoulder open surgery, R total knee replacement, R total hip replacement, bilateral wrist carpal tunnel releases, colonoscopy Past Anesthesia/Blood Transfusion Reactions: No Reported Reaction Past Psychological History: No Psychological Hx Reported Past Alcohol Use History: None Reported Past Drug Use History: None Reported - Past Family History Father Family Medical History: Myocardial Infarction ([place]) Additional Family Medical History / Comment(s): father from issues associated with alcoholism Mother Family Medical History: CVA/TIA, Myocardial Infarction ([place]) Additional Family Medical History / Comment(s): Mother at age 90 from myocardial infarction. Sister(s) Family Medical History: Diabetes Mellitus Daughter(s) Additional Family Medical History / Comment(s): Patient states she has 8 children with no major medical problems. Medications and Allergies Home Medications Medication Instructions Recorded Confirmed Type Losartan Potassium 100 mg PO DAILY@0800 MDD HOLD IF 07/25/18 04/22/20 History SYSTOLIC < = TO 100 Metoprolol Tartrate [Lopressor] 50 mg PO BID@0800,1700 07/25/18 04/22/20 History Furosemide [Lasix] 20 mg PO DAILY PRN 04/06/19 04/22/20 History Acetaminophen [Tylenol] 500 mg PO Q4-6H PRN 09/10/19 04/22/20 History Aspirin EC [Ecotrin Low Dose] 81 mg PO DAILY@1700 09/10/19 04/22/20 History Atorvastatin [Lipitor] 40 mg PO HS@209909/10/19 04/22/20 History Isosorbide Mononitrate ER [Imdur] 30 mg PO DAILY@0809/10/19 04/22/20 History Pioglitazone [Actos] 30 mg PO DAILY@79909/10/19 04/22/20 History Sertraline [Zoloft] 75 mg PO HS@209909/10/19 04/22/20 History Famotidine [Pepcid] 20 mg PO DAILY@79904/22/20 04/22/20 History Glimepiride [Amaryl] 2 mg PO DAILY@79904/22/20 04/22/20 History Lactose-Reduced Food [Ensure Plus] 1 can PO BID@0800,1700 04/22/20 04/22/20 History Magnesium Hydroxide [Milk of 7,200 mg PO DAILY PRN 04/22/20 04/22/20 History Magnesia] Na Phos,M-B/Na Phos,Di-Ba [Fleet 133 ml RECTAL DAILY PRN 04/22/20 04/22/20 History Adult] Sennosides [Senokot] 17.2 mg PO HS@209904/22/20 04/22/20 History amLODIPine [Norvasc] 5 mg PO DAILY@0804/22/20 04/22/20 History bisacodyL [Dulcolax] 10 mg RECTAL DAILY PRN 04/22/20 04/22/20 History Allergies Allergy/AdvReac Type Severity Reaction Status Date / Time codeine Allergy Unknown Verified 04/22/20 07:59 Penicillins Allergy Rash/Hives Verified 04/22/20 07:59 Physical Exam Vitals: Vital Signs Temp Pulse Pulse Resp BP BP Pulse Ox 04/22/20 04:33 98.9 F 71 14 126/52 96 04/22/20 04:02 98.2 F 72 18 129/64 96 04/22/20 01:54 18 04/22/20 01:46 98.4 F 74 20 149/57 96 Intake and Output 04/21/20 04/22/20 04/22/20 22:59 06:59 14:59 Other: Voiding Method Bedpan # Bowel Movements 1 Weight 68.492 kg Physical examination: HEENT: Head is atraumatic, normocephalic, pupils were equal round reactive to light and recommendation, extraocular muscle movement were intact, mucus brains of the mouth are somewhat dry. Neck: Supple no JVP renal adenopathy. chest: decreased breath sounds at the bases, no rhonchi no expiratory wheezes no chest wall tenderness or intercostal retractions. Heart: First heart sound is depressed, second heart sounds normal, there is systolic ejection murmur 2/6 in the left sternal border. Abdomen: Soft nontender nondistended positive bowel sound. Extremities: Trace edema, no calf tenderness, dorsalis pedis +1 bilaterally. Neurologic examination: Patient is awake alert and oriented 2, patient does appear to have left-sided hemiparesis that she had chronically, she does appear to be at baseline. Results CBC & Chem 7: 04/23/20 07:24 04/23/20 07:24 Labs: Abnormal Lab Results - Last 24 Hours (Table) 04/22/20 04/22/20 04/22/20 Range/Units 01:47 01:47 01:47 RDW 16.0 H (11.5-15.5) % D-Dimer 1.30 H (<0.60) mg/L FEU BUN 31 H (7-17) mg/dL Glucose 100 H (74-99) mg/dL Thrombosis Risk Factor Assmnt - DVT/VTE Prophylaxis DVT/VTE Prophylaxis: Pharmacologic Prophylaxis ordered, Mechanical Prophylaxis ordered - Choose All That Apply Each Factor Represents 1 point: Obesity (BMI >25) Each Risk Factor Represents 3 Points: Age 75 years or older Thrombosis Risk Factor Assessment Total Risk Factor Score: 4 Thrombosis Risk Factor Assessment Level: Moderate Risk Assessment and Plan Assessment: Assessment and plan: 1. Covid 19 positive test results without evidence of any clinical symptoms. Patient was placed in isolation, infectious disease consultation was obtained, patient will be maintained on droplet precautions with eye contact cautions, she'll being evaluated by ID we'll repeat her Covid 19 PCR again and the patient can be discharged home in the next 24 hours. 2. Hypertension and hypertensive cardiovascular disease. Continue patient on metoprolol 50 mg orally twice every day, amlodipine 5 minute gram orally once every day, losartan 100 mg orally once every day. 3. Hyperlipidemia. Continue patient on Lipitor 40 mg orally once every day. 4. Diabetes mellitus type 2. Continue patient on Actos 30 mg orally once every day as well as glimepiride 2 mg orally once every day, continue patient on Accu-Chek before each meal and at bedtime. 5. History of CVA with left-sided hemiparesis. Continue patient on aspirin 81 mg once every day, continue patient also on Lipitor 40 mg orally once every day for secondary stroke prevention. 6. Vascular dementia. Appears to be stable at this point in time. 7. Major depressive disorder. Continue sertraline 75 mg orally once every day. 8. CAD. Continue patient on aspirin 81 mg once every day, metoprolol 50 mg ora lly twice every day as well as Lipitor 40 mg orally once every day. 9. DVT prophylaxis. Continue Lovenox 40 mg subcutaneously once every 24 hours. 10. GI prophylaxis. Continue Pepcid 20 mg orally once every day. 11. Admitted to inpatient. Estimate length of stay 2 midnights. 12. No code.
--- NOTE | 2020-04-23 10:49 | P.DS ---
Providers Date of admission: 04/22/20 03:30 Expected date of discharge: 04/23/20 Attending physician: Celi Yuan Consults: 04/22/20 03:30 Consult Physician Urgent Consulting Provider: Jose Francisco Guerrero Consult Reason/Comments: covid Do you want consulting provider notified?: Yes Primary care physician: Celi Yuan Hospital Course: This is an 84-year-old female patient of mine with past medical history of diabetes mellitus type 2, CVA with left-sided weakness in June 2018 and multiple TIAs, hypertension, hyperlipidemia, gastroesophageal reflux disease, osteoarthritis, vascular dementia, has been residing at [facility] for chronic care as the patient was not able to give herself and her family struggled quite a bit with activities of daily living, patient has been doing fine over the last few months however recently where one of 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 Test result came back positive for Covid 19, it was elected for the patient be transferred to the hospital for evaluation patient was totally asymptomatic had no fever or chills no sore throat no significant abnormalities, beside her baseline chronic medical conditions and she was admitted to the hospital for evaluation by ID for another 24 hours and hopefully she will be able to go back to the detention one week if okay from the administration at [facility]. Discharge diagnoses: 1. Negative Covid 19 PCR. 2. Hypertension and hypertensive cardiovascular disease. 3. Hyperlipidemia. 4. Diabetes mellitus type 2. 5. History of CVA with left-sided hemiparesis. 6. Vascular dementia. 7. Major depressive disorder. 8. CAD. Patient Condition at Discharge: Fair Plan - Discharge Summary Discharge Rx Participant: No New Discharge Prescriptions: No Action Metoprolol Tartrate [Lopressor] 50 mg PO BID@0800,1700 Losartan Potassium 100 mg PO DAILY@0800 MDD HOLD IF SYSTOLIC < = TO 100 Furosemide [Lasix] 20 mg PO DAILY PRN PRN Reason: Edema Acetaminophen [Tylenol] 500 mg PO Q4-6H PRN PRN Reason: Pain Atorvastatin [Lipitor] 40 mg PO HS@2100 Sertraline [Zoloft] 75 mg PO HS@2100 Isosorbide Mononitrate ER [Imdur] 30 mg PO DAILY@0800 Pioglitazone [Actos] 30 mg PO DAILY@0800 Aspirin EC [Ecotrin Low Dose] 81 mg PO DAILY@170 bisacodyL [Dulcolax] 10 mg RECTAL DAILY PRN PRN Reason: Constipation Na Phos,M-B/Na Phos,Di-Ba [Fleet Adult] 133 ml RECTAL DAILY PRN PRN Reason: Constipation Lactose-Reduced Food [Ensure Plus] 1 can PO BID@0800,1700 Magnesium Hydroxide [Milk of Magnesia] 7,200 mg PO DAILY PRN PRN Reason: Constipation Sennosides [Senokot] 17.2 mg PO HS@2099 amLODIPine [Norvasc] 5 mg PO DAILY@0800 Famotidine [Pepcid] 20 mg PO DAILY@0800 Glimepiride [Amaryl] 2 mg PO DAILY@0800 Discharge Medication List Losartan Potassium 100 mg PO DAILY@0800 MDD HOLD IF SYSTOLIC < = TO 100 07/25/18 [History] Metoprolol Tartrate [Lopressor] 50 mg PO BID@0800,1700 07/25/18 [History] Furosemide [Lasix] 20 mg PO DAILY PRN 04/06/19 [History] Acetaminophen [Tylenol] 500 mg PO Q4-6H PRN 09/10/19 [History] Aspirin EC [Ecotrin Low Dose] 81 mg PO DAILY@169909/10/19 [History] Atorvastatin [Lipitor] 40 mg PO HS@209909/10/19 [History] Isosorbide Mononitrate ER [Imdur] 30 mg PO DAILY@79909/10/19 [History] Pioglitazone [Actos] 30 mg PO DAILY@0809/10/19 [History] Sertraline [Zoloft] 75 mg PO HS@209909/10/19 [History] Famotidine [Pepcid] 20 mg PO DAILY@0804/22/20 [History] Glimepiride [Amaryl] 2 mg PO DAILY@0804/22/20 [History] Lactose-Reduced Food [Ensure Plus] 1 can PO BID@0800,1700 04/22/20 [History] Magnesium Hydroxide [Milk of Magnesia] 7,200 mg PO DAILY PRN 04/22/20 [History] Na Phos,M-B/Na Phos,Di-Ba [Fleet Adult] 133 ml RECTAL DAILY PRN 04/22/20 [History] Sennosides [Senokot] 17.2 mg PO HS@2100 04/22/20 [History] amLODIPine [Norvasc] 5 mg PO DAILY@0800 04/22/20 [History] bisacodyL [Dulcolax] 10 mg RECTAL DAILY PRN 04/22/20 [History] Follow up Appointment(s)/Referral(s): Celi Yuan MD [Primary Care Provider] - 1-2 days Scott Rico, [NON-STAFF] - As Needed
--- NOTE | 2020-04-23 15:47 | PN ---
PROGRESS NOTE DATE OF SERVICE: 04/23/2020. REASON FOR FOLLOWUP: Positive Covid-19 test. INTERVAL HISTORY: Patient seen on rounds earlier. The patient has been afebrile. The patient is breathing comfortably. Denies any chest pain, cough. No nausea, vomiting, abdominal pain or diarrhea. PHYSICAL EXAMINATION: Blood pressure 152/67 with a pulse of 85. Temperature 97.8. She is 93% on room air. General description: The patient is an elderly female lying in bed in no distress. Respiratory system: Unlabored breathing, clear to auscultation anteriorly. Heart S1, S2. Regular rate and rhythm. Abdomen soft, no tenderness. LABS: Hemoglobin is 11.9, white count 4.7. No lymphopenia. Liver enzymes are normal. CRP less than 5. PCR is normal. Chest is negative. DIAGNOSTIC IMPRESSION AND PLAN: Patient with a positive repeat test for Covid-19, likely falsely positive. PCR is negative. She does not clinically behaving as a Covid-19. Recommend no treatment or any further workup for the same. MMODL / IJN: [id number] /
[2020-04-23] MEDS ORDERED: ASPIRIN 81 MG PO SCH (17:00)
== END 2020-04-23 13:49 ==
LOC: EC 01:42 → 4SSUR 03:30
PROVIDERS: ADMIT Internal Medicine; ATTEND Internal Medicine
DX: Z20.828 Contact with and (suspected) exposure to other viral communicable diseases (principal); I11.9 Hypertensive heart disease without heart failure; E78.5 Hyperlipidemia, unspecified; E11.9 Type 2 diabetes mellitus without complications; I69.354 Hemiplegia and hemiparesis following cerebral infarction affecting left non-dominant side; F01.50 Vascular dementia, unspecified severity, without behavioral disturbance, psychotic disturbance, mood disturbance, and anxiety; F32.9 Major depressive disorder, single episode, unspecified; I25.10 Atherosclerotic heart disease of native coronary artery without angina pectoris; E78.00 Pure hypercholesterolemia, unspecified; K21.9 Gastro-esophageal reflux disease without esophagitis; R33.9 Retention of urine, unspecified; R32 Unspecified urinary incontinence; G47.00 Insomnia, unspecified; M19.90 Unspecified osteoarthritis, unspecified site; E66.9 Obesity, unspecified; Z68.27 Body mass index [BMI] 27.0-27.9, adult; Z79.899 Other long term (current) drug therapy; Z79.82 Long term (current) use of aspirin; Z79.84 Long term (current) use of oral hypoglycemic drugs; Z88.5 Allergy status to narcotic agent; Z88.0 Allergy status to penicillin; Z87.19 Personal history of other diseases of the digestive system; Z87.11 Personal history of peptic ulcer disease; Z87.440 Personal history of urinary (tract) infections; Z90.49 Acquired absence of other specified parts of digestive tract; Z90.710 Acquired absence of both cervix and uterus; Z96.641 Presence of right artificial hip joint; Z96.651 Presence of right artificial knee joint; Z98.890 Other specified postprocedural states; Z86.69 Personal history of other diseases of the nervous system and sense organs; Z66 Do not resuscitate; Z82.49 Family history of ischemic heart disease and other diseases of the circulatory system; Z81.1 Family history of alcohol abuse and dependence; Z82.3 Family history of stroke; Z83.3 Family history of diabetes mellitus
CPT/HCPCS: 96372; 99285; 36415; 93005; 85379; 80061; 80053 ×2; 82728; 83605; 83615; 83735; 85025 ×2; 85610; 85730; 86140; 87040; 84145; 71045; G0378 ×2; U0003 ×2; J1650

== ENCOUNTER 2024-04-06 20:00 | Inpatient (IN) | payer MEDICARE ==
[2024-04-07] MEDS ORDERED: METOPROLOL TARTRATE 50 MG TAB ONE (16:36)
[2024-04-07] MEDS ORDERED: ACETAMINOPHEN TAB 325 MG TAB ONE (16:36)
[2024-04-07] MEDS ORDERED: ASPIRIN 81 MG ONE (16:36)
[2024-04-07] MEDS ORDERED: ATORVASTATIN 40 MG TAB ONE (20:28)
[2024-04-07] MEDS ORDERED: SERTRALINE 50 MG TAB ONE (20:28)
[2024-04-07] MEDS ORDERED: SENNOSIDES-DOCUSATE SODIUM 1 EACH TAB PO ONE (20:28)
[2024-04-07] MEDS ORDERED: BACLOFEN 10 MG TAB ONE (20:29)
[2024-04-07] MEDS ORDERED: INSULIN ASPART (NovoLOG) 100 UNIT/ML VIAL SQ ONE (20:30)
[2024-04-07] MEDS ORDERED: INSULIN DETEMIR (LEVEMIR) 100 UNIT/ML SYR SQ ONE (23:59)
[2024-04-07] MEDS ORDERED: SODIUM CHLORIDE 0.9% 1,000 ML BAG ONE (23:59)
[2024-04-08] MEDS ORDERED: LOSARTAN 50 MG TAB ONE (09:35)
[2024-04-08] MEDS ORDERED: METOPROLOL TARTRATE 50 MG TAB ONE (09:36)
[2024-04-08] MEDS ORDERED: LORATADINE 10 MG TAB ONE (09:36)
[2024-04-08] MEDS ORDERED: FAMOTIDINE 20 MG TAB ONE (09:36)
[2024-04-08] MEDS ORDERED: ISOSORBIDE MONONITRATE ER 30 MG TAB.ER.24H PO ONE (09:36)
[2024-04-08] MEDS ORDERED: ACETAMINOPHEN TAB 325 MG TAB ONE (09:36)
[2024-04-08] MEDS ORDERED: DAPAGLIFLOZIN PROPANEDIOL 5 MG TABLET ONE (09:37)
[2024-04-08] MEDS ORDERED: FUROSEMIDE 20 MG TAB ONE (09:37)
--- NOTE | 2024-05-19 17:21 | CDI ---
Documentation Clarification Form Date: 05/19/2024 05:02:03 PM From: Shakila Schulte Phone: Admit Date: 04/06/2024 08:25:00 PM Patient Name: Anisha Antoine Visit Number: [id number] Discharge Date: 04/08/2024 11:30:00 AM ATTENTION: The Clinical Documentation Specialists (CDI) and [facility] Coding Staff appreciate your assistance in clarifying documentation. Please respond to the clarification below the line at the bottom and electronically sign. The CDI & [facility] Coding staff will review the response and follow-up if needed. Please note: Queries are made part of the Legal Health Record. If you have any questions, please contact the author of this message via ITS. Doctor/Provider: Celi Yuan Your patient is receiving the following: decrease insulin glargine SQ from 22u to 18u per Physicians Orders 04/08 (page 6/6 paper chart). Please clarify what condition/diagnosis is being treated. History/Risk Factors: melena, ABLA, hypotension, encephalopathy, DNR/ "No Hospitization" Clinical Indicators: per RN Note 04/08 (pg 2/2 paper chart) blood glucose is 46. Gave OJx2 w sugar packets BG was 62. OJ and 4 sugars BG 76 Treatment: DC on Hospice. Pt has a DNR/ "No Hospitization" order in chart from [facility] Can you please clarify what diagnosis are you treating with the insulin change? [ ] Hypoglycemia, NOS [X ] Diabetes Mellitus with hypoglycemia [ ] Type 1 [ ] Type 2 [ ] Other, please specify [ ] Unable to determine (Template Last Revised: October 2020) MTDD
--- NOTE | 2024-05-19 17:39 | CDI ---
Documentation Clarification Form Date: 05/19/2024 05:22:13 PM From: Shakila Schulte Phone: Admit Date: 04/06/2024 08:25:00 PM Patient Name: Anisha Antoine Visit Number: [id number] Discharge Date: 04/08/2024 11:30:00 AM ATTENTION: The Clinical Documentation Specialists (CDI) and [facility] Coding Staff appreciate your assistance in clarifying documentation. Please respond to the clarification below the line at the bottom and electronically sign. The CDI & [facility] Coding staff will review the response and follow-up if needed. Please note: Queries are made part of the Legal Health Record. If you have any questions, please contact the author of this message via ITS. Doctor/Provider: Celi Yuan Encephalopathy is documented per DC Summary which may lack sufficient clinical evidence/support in the medical record. Additional clarification is requested. History/Risk Factors: melena, ABLA, hypotension, encephalopathy, DNR/ "No Hospitization Clinical Indicators: Vitals: 127/66 P 118 RR 18 T 98.0 SpO2 94.1 RA GCS 14 Per RN Note 04/08 (pg 2/2 paper chart) blood glucose is 46. GaveOJx2 w sugar packets BG was 62.OJ and 4 sugars BG 76; Insulin was decreased per Physicians Orders. Per [facility] Nursing Record Downtime Form pt carried a Dx of dementia and arrived via EMS with AMS and blood in brief DC Summary states ABLA Treatment: Pt has aDNR/ "No Hospitization" order in chart from SNF so was discharged on Comfort care back to the SNF per son/DPOA request After work up and study, please clarify the diagnosis(es) is/are most appropriate? Please select any/all applicable. [ ] Encephalopathy ruled out [ X ] Metabolic Encephalopathy is a valid diagnosis as evidenced by the following: __due to hypoglycemia [ ] Dementia [ ] Delirium [ ] Unable to determine [ ] Other, please specify (Template Last Revised: August 2023) MTDD
--- NOTE | 2024-05-21 14:40 | HP ---
HISTORY AND PHYSICAL CHIEF COMPLAINT: Bloody stool. 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 The patient resides at [facility] for [facility] care. Apparently, the patient has been declining over the last few months, and there was a discussion about switching the patient to no hospitalization as well as no code at this point, and the family were contemplating whether or not she is ready to go for hospice care at this point in time since the patient developed to have a significant deep tissue injury to the left heel and the patient has not been eating much over the last few weeks. Apparently, the patient was sent to the ER because the family did not make a decision on hospice care as of yet and she was having bloody stool and hypotension. Her blood pressure was around 80/60 in the [facility], tachycardic, and she had some bloody stool after she was started on Xarelto 2.5 mg orally twice every day due to her severe peripheral vascular disease. The patient was sent to the ER in [facility]. She was seen in the emergency department. She did start on IV fluid resuscitation in the form of normal saline at 100 cc an hour. Her blood pressure improved. Her hemoglobin is down to 11.7, white counts were normal, platelet counts were normal. PT, PTT, and INR were normal. Because of the presentation, she was admitted to the hospital for evaluation by General Surgery. The patient's son met with hospice, and then eventually, they decided to possibly go to [facility] at [facility] hopefully in the next 24 hours. PAST MEDICAL HISTORY: 1. Hypertension and hypertensive cardiovascular disease. 2. Hyperlipidemia. 3. Diabetes mellitus type 2. 4. Diabetic polyneuropathy. 5. History of CVA with left-sided hemiplegia. 6. History of vascular dementia. 7. History of recurrent TIA. 8. History of chronic kidney disease stage 3A. 9. Anemia of chronic kidney disease. 10.Osteoarthritis. 11.Medical debility. 12.Moderate protein-calorie malnutrition. PAST SURGICAL HISTORY: 1. Right total shoulder arthroplasty. 2. Right total hip arthroplasty. 3. Right total knee arthroplasty. 4. Bilateral carpal tunnel release. 5. Hysterectomy. 6. Appendectomy. SOCIAL HISTORY: The patient denies any history of smoking. No history of drinking. No history of drug use or abuse. She is currently bedbound, stays at [facility]. FAMILY HISTORY: Father from myocardial infarction, had history of alcoholism. Mother at the age of 90. She had a history of DE and a CVA. The patient had one sister with diabetes. The patient has a son with hypertension and CAD and other 7 siblings. REVIEW OF SYSTEMS: GENERAL: The patient does not appear to be in acute distress at this time. HEENT: The patient is hard of hearing. She does not appear to have any sore throat. RESPIRATORY: The patient denies any cough. She appears to be a bit short of breath. She has no pleurisy or hemoptysis. CARDIOVASCULAR: The patient denies any chest pain. She does not appear to have any orthopnea or PND at this time. She does not appear to have any edema. GASTROINTESTINAL: The patient denies any abdominal pain. She did complain of bloody stool earlier yesterday, none today. She has no nausea, vomiting, or diarrhea at this time. GENITOURINARY: The patient has no urinary frequency. She does not have any hematuria. MUSCULOSKELETAL: The patient appears to have limited range of motion of the left upper and left lower extremity due to her recent stroke. She does appear to have significant osteoarthritis. SKIN: There is a deep tissue injury to the left heel. NEUROLOGIC: The patient appears to have baseline dementia. Follows simple commands only. PHYSICAL EXAMINATION: GENERAL: The patient is lying down in bed, in no apparent distress. VITAL SIGNS: As follows; temperature 98.7, blood pressure 120/75, heart rate 75, respirations 18, oxygen saturation 98% on room air. HEAD, EYES, EARS, NOSE AND THROAT: Head is atraumatic and normocephalic. Pupils were equal, sluggish reaction to light. Sclerae nonicteric. Conjunctivae were slightly pale. Mucous membranes of the mouth were somewhat dry. NECK: Supple. No JVP. Decreased carotid upstroke bilaterally. No lymphadenopathy. CHEST: Decreased breath sounds at the bases. A few rhonchi. Minimal expiratory wheezes. No chest wall tenderness. No intercostal retractions. HEART: First heart sound is depressed. Second heart sound is normal. There is a systolic ejection murmur, 2/6 located in the left sternal border. ABDOMEN: Soft. Minimal tenderness to the midepigastric area. No rebound or guarding. Positive bowel sounds. EXTREMITIES: Trace edema. No calf tenderness. Dorsalis pedis +1 bilaterally. NEUROLOGIC: Left-sided hemiplegia. SKIN: Deep tissue injury of the left heel with bandages to the left heel. LABORATORY EVALUATION: Reviewed. ASSESSMENT/PLAN: 1. Lower gastrointestinal bleed. The patient denies having any significant drop in her hemoglobin at this time. Discontinue Xarelto at this point in time. Monitor the patient's CBC over the next 24 hours. Continue IV fluid resuscitation in the form of normal saline at 100 cc an hour. Monitor the patient very closely. There is general surgery consultation at this time. I do not believe the patient is a candidate for any aggressive procedure at this time. 2. Hypertension and hypertensive cardiovascular disease. Continue the patient on losartan 50 mg orally once every day. Discontinue amlodipine. Continue metoprolol 50 mg orally twice every day. Monitor the patient's blood pressure very closely. 3. Hyperlipidemia. Continue the patient's atorvastatin 40 mg orally once every day. Monitor lipid panel. 4. Diabetes mellitus type 2. Continue current diabetic medication. Follow up with the patient very closely. 5. Chronic kidney disease stage 3A. Continue IV fluid resuscitation in the form of normal saline. Avoid nephrotoxins. Monitor the patient's CMP over the next 24 hours. 6. History of ischemic cerebrovascular accident in the past with left-sided hemiplegia. Continue the patient on aspirin 81 mg once every day. Continue the patient on atorvastatin 40 mg once every day for secondary stroke prevention. 7. History of vascular dementia, not taking any medication at this time. 8. Deep tissue injury to the left heel. Encouraged oral intake of protein. Apply skin prep to the left heel and keep the heel floated. Bilateral heel boots. 9. History of osteoarthritis. Continue current pain management. 10.History of peripheral vascular occlusive disease. Discontinue Xarelto for now. 11.Constipation. Continue current bowel care. 12.Deep venous thrombosis prophylaxis. Bilateral knee-high GUALBERTO hose. Avoid heparin products and Xarelto for now since the patient is having possible gastrointestinal bleed. 13.Gastrointestinal prophylaxis. Continue with Protonix 40 mg once every day. 14.Admit to inpatient. 15.Estimated length of stay 2 midnights. 16.The patient is [id number]. 17.motion picture set up worker has met with the son, and he is going to have a meeting with the [facility] hopefully in the next 24 hours for establishment of [facility], and hopefully, the patient will be able to be transferred back to the [facility] with hospice care at this point in time. 18. MMBIBI / IJN: [id number] /
--- NOTE | 2024-05-21 14:40 | PN ---
PROGRESS NOTE DATE OF SERVICE: 04/07/2024 HISTORY OF PRESENT ILLNESS: The patient is lying down in bed, in no apparent distress. She has not had any bowel movement today. I have spoken with the behavioral health case manager on the floor, and she stated that the family had met with [facility], and they are probably planning to transfer the patient back to the [facility] tomorrow morning with [facility]. We will continue with supportive care at this point in time. The patient does not appear to be in any acute distress at this time, getting IV fluid resuscitation. Continue to monitor the patient very closely. The patient has no chest pain or shortness of breath. She has no abdominal pain. She has not had any bloody bowel movement, cancel consultation for General Surgery at this point in time. PHYSICAL EXAMINATION: VITAL SIGNS: Temperature is 97.5, blood pressure is 122/75, heart rate is 75, respirations 18, and oxygen saturation 96% on room air. HEAD, EYES, EARS, NOSE, AND THROAT: Head is atraumatic and normocephalic. Pupils are equal, round. Sclerae are nonicteric. Conjunctivae are pale. Mucous membranes and mouth are somewhat dry. NECK: Supple. No JVP. Decreased carotid upstroke bilaterally. CHEST: Decreased breath sounds at the bases. A few rhonchi. No expiratory wheezes. No chest wall tenderness. No intercostal retractions. HEART: First heart sound is depressed. Second heart sound is normal. There is systolic ejection murmur, 2/6 located in the left sternal border. ABDOMEN: Soft. Minimal tenderness in the epigastric area. No rebound. No guarding. Positive bowel sounds. EXTREMITIES: No edema. No calf tenderness. Dorsalis pedis +1 bilaterally. NEUROLOGIC: Left-sided hemiplegia. SKIN: Deep tissue injury to the left heel. LABORATORY EVALUATION: Reviewed. ASSESSMENT AND PLAN: 1. Lower gastrointestinal bleed, has stopped at this point. Discontinue Xarelto. Repeat the patient's CBC over the next 24 hours. Cancel General Surgery consultation. 2. Deep tissue injury to the left heel. Please keep the left heel floated and apply skin prep once a day as needed. Encourage oral intake of protein drink. 3. Hypertension and hypertensive cardiovascular disease. Continue the patient on losartan 50 mg once every day, discontinue amlodipine, continue metoprolol 50 mg orally twice every day. 4. Hyperlipidemia. Continue the patient on atorvastatin 40 mg once every day. Monitor the patient very closely. 5. Anemia of chronic kidney disease, stable at this time. 6. Chronic kidney disease stage 3a. Avoid nephrotoxins. Monitor the patient's CMP over the next 24 hours. 7. History of cerebrovascular accident with left-sided hemiplegia. Continue the patient on baby aspirin 81 mg once every day as well as atorvastatin 40 mg once every day for secondary prevention. 8. Constipation. Continue current bowel care. 9. Diabetes mellitus type 2. Continue current treatment. 10.Vascular dementia, stable. 11.Protein-calorie malnutrition. Continue with current treatment plan. Encourage oral intake of protein drinks. 12.The plan is to transfer the patient to [facility] tomorrow morning with [facility]. 13.THE PATIENT IS DO NOT RESUSCITATE. 14.The patient's prognosis is guarded. MMSHAWNL / RUTH ANNN: [id number] /
== END 2024-04-08 11:30 | disposition hospice, inpatient (51) | DRG 377 ==
LOC: EC 20:00 → 3NCARDOBS 20:25
PROVIDERS: ADMIT Internal Medicine; ATTEND Internal Medicine
DX: K92.1 Melena (principal); G93.41 Metabolic encephalopathy; D62 Acute posthemorrhagic anemia; E44.0 Moderate protein-calorie malnutrition; I69.354 Hemiplegia and hemiparesis following cerebral infarction affecting left non-dominant side; Z68.1 Body mass index [BMI] 19.9 or less, adult; E11.22 Type 2 diabetes mellitus with diabetic chronic kidney disease; F01.50 Vascular dementia, unspecified severity, without behavioral disturbance, psychotic disturbance, mood disturbance, and anxiety; E11.42 Type 2 diabetes mellitus with diabetic polyneuropathy; E11.51 Type 2 diabetes mellitus with diabetic peripheral angiopathy without gangrene; N18.31 Chronic kidney disease, stage 3a; E11.649 Type 2 diabetes mellitus with hypoglycemia without coma; Z51.5 Encounter for palliative care; Z66 Do not resuscitate; D63.1 Anemia in chronic kidney disease; I13.10 Hypertensive heart and chronic kidney disease without heart failure, with stage 1 through stage 4 chronic kidney disease, or unspecified chronic kidney disease; I95.9 Hypotension, unspecified; E78.5 Hyperlipidemia, unspecified; S90.32XA Contusion of left foot, initial encounter; K59.00 Constipation, unspecified; Z79.01 Long term (current) use of anticoagulants; Z96.611 Presence of right artificial shoulder joint; Z96.641 Presence of right artificial hip joint; Z96.651 Presence of right artificial knee joint; Z79.84 Long term (current) use of oral hypoglycemic drugs; Z87.891 Personal history of nicotine dependence; Z79.899 Other long term (current) drug therapy
CPT/HCPCS: 93005; 99291